=== PATIENT | female | born 1965 | race Caucasian/White ===

== ENCOUNTER 2020-04-20 17:06 | Outpatient (REF) | payer OTHER, SELFPAY | END 2020-04-20 17:07 | disposition home or self-care (01) | LOC: HO.LNP 17:06 | PROVIDERS: Visit Provider Nurse Practitioner Family | DX: Z20.822 Contact with and (suspected) exposure to COVID-19 (principal) | CPT/HCPCS: U0003 ==

== ENCOUNTER 2021-10-05 08:03 | Outpatient (REF) | payer OTHER, SELFPAY ==
[2021-10-05 11:16] LABS: MANUAL DIFF FLAG NO
[2021-10-05 11:21] LABS: Basophils Absolute Auto 0.1 X10*3/uL (0.0-0.2); Basophils Percent Auto 1.5 % (0-2); Eosinophils Absolute Auto 0.1 X10*3/uL (0.0-0.4); Eosinophils Percent Auto 1.9 % (0-4); Hematocrit 34.9 % (37.0-47.0); Lymphocytes Percent Auto 37.8 % (20-40); Mean Corpuscular HGB Conc 34.4 g/dl (31.0-35.0); Mean Corpuscular Hemoglobin 29.6 pg (27.0-33.0); Mean Corpuscular Volume 86.2 fL (80.0-98.0); Mean Platelet Volume 12.4 fL (9.4-12.3); Monocytes Absolute Auto 0.4 X10*3/uL (0.1-1.2); Monocytes Percent Auto 6.8 % (2-11); Neutrophils Absolute Auto 2.7 x10*3/uL (2.0-8.3); Red Blood Count 4.05 X10*6/uL (4.20-5.50); Red Cell Distribution Width 12.9 % (11.0-16.0); White Blood Count 5.2 X10*3/uL (4.8-10.8)
[2021-10-05 11:25] LABS: Platelet Count 50 X10*3/uL (160-400)
[2021-10-05 11:39] LABS: Alanine Aminotransferase 21 U/L (0-31); Albumin Level 4.2 g/dL (3.5-5.0); Alkaline Phosphatase 78 U/L (39-117); Anion Gap 10 (12-20); Aspartate Amino Transferase 17 U/L (5-31); Bilirubin Total 0.5 mg/dL (0.0-1.0); Blood Urea Nitrogen 10 mg/dL (9-16); Calcium 8.7 mg/dL (8.4-10.2); Carbon Dioxide 30 mmol/L (22-29); Chloride 106 mmol/L (96-108); Cholesterol 275 mg/dL; Estimated Glomerular Filt Rate > 60; Glucose Fasting 97 mg/dL (60-99); HDL Cholesterol 61 mg/dL; LDL Cholesterol Calculated 186 mg/dl; Potassium 4.1 mmol/L (3.3-5.1); Sodium 142 mmol/L (135-145); Total Protein 6.6 g/dL (6.5-8.0); Triglycerides 144 mg/dL
== END 2021-10-05 08:04 | disposition home or self-care (01) ==
LOC: HO.HMGCLDS 08:03
PROVIDERS: PCP Internal Medicine; Visit Provider Internal Medicine
DX: Z00.01 Encounter for general adult medical examination with abnormal findings (principal); E66.09 Other obesity due to excess calories; K21.00 Gastro-esophageal reflux disease with esophagitis, without bleeding; M67.912 Unspecified disorder of synovium and tendon, left shoulder
CPT/HCPCS: 36415; 80053; 80061; 84443; 85025

== ENCOUNTER 2021-10-06 09:13 | Outpatient (REF) | payer OTHER, SELFPAY ==
--- NOTE | ~2021-10-06 | MM_ITS ---
EXAMINATION: MM SCREENING DIGITAL BREAST TOMOSYNTHESIS, BILATERAL CLINICAL INFORMATION: Screening. Asymptomatic. The lifetime risk of breast cancer based on the Tyrer-Cuzick Model is 6%. COMPARISON: Outside mammography: 07/25/2013, 05/01/2019 ([place]). TECHNIQUE: Digital breast tomosynthesis is performed in both the craniocaudal and mediolateral oblique views along with computer-aided detection (CAD). Synthesized 2D images are generated from the tomosynthesis. FINDINGS: There are scattered areas of fibroglandular density (ACR BI-RADS breast composition Category b). There are no significant masses, abnormal calcifications, or other abnormalities. The axilla and skin contours are unremarkable. No significant changes from prior outside studies. MM/MM tomosynthesis screening BI IMPRESSION: No mammographic evidence of malignancy. ASSESSMENT: BI-RADS 1: Negative RECOMMENDATION: Routine annual mammography screening. This patient's information was entered into a reminder system with a target due date for their next mammogram.
== END 2021-10-06 09:14 | disposition home or self-care (01) ==
LOC: HO.MAMMO 09:13
PROVIDERS: Visit Provider Internal Medicine
DX: Z12.31 Encounter for screening mammogram for malignant neoplasm of breast (principal)
CPT/HCPCS: 77063; 77067

== ENCOUNTER 2021-11-18 12:49 | Outpatient (REF) | payer OTHER, SELFPAY ==
--- NOTE | ~2021-11-18 | XR_ITS ---
EXAMINATION: XR SHOULDER, LEFT CLINICAL INFORMATION: M25.512 - Pain in left shoulder COMPARISON: None TECHNIQUE: Left shoulder is imaged in 3 views. FINDINGS: No fracture, dislocation, or destructive process. The acromioclavicular alignment is normal. The glenohumeral joint shows no narrowing or erosive change. There is small spur inferior medial humeral head. No visible rotator cuff calcifications. XR/XR shoulder LT min 2V IMPRESSION: -Small spur inferior medial humeral head. No joint narrowing or erosive change. -No visible rotator cuff calcifications.
== END 2021-11-18 12:50 | disposition home or self-care (01) ==
LOC: HO.HOSX 12:49
PROVIDERS: Visit Provider Physician Assistant
DX: M75.42 Impingement syndrome of left shoulder (principal)
CPT/HCPCS: 73030; 99202

== ENCOUNTER 2021-12-27 09:56 | Emergency (ER) | payer OTHER, SELFPAY ==
--- NOTE | ~2021-12-27 | CT_ITS ---
EXAMINATION: CT ABDOMEN AND PELVIS WITH CONTRAST CLINICAL INFORMATION: Right lower quadrant and epigastric pain, history of cysts gastric bypass, rule out small bowel obstruction. COMPARISON: None TECHNIQUE: Multidetector volumetric images were obtained from the superior aspect of the liver through the pubic symphysis following administration 85 mL of Omnipaque 350 intravenous contrast. Sagittal and coronal reformatted images were obtained on the technologist's workstation. Oral contrast: No This CT examination was performed using dose optimization techniques as appropriate, variously including the following: *Automated exposure control *Adjustment of mA and/or kV according to patient size (this includes techniques or standardized protocols for targeted exams where dose is matched to indication/reason for exam; i.e. extremities or head) *Use of iterative reconstruction technique DLP: 561 mGy-cm FINDINGS: LUNG BASES: The visualized lung bases are unremarkable. LIVER, GALLBLADDER, AND BILIARY TREE: Hepatic steatosis. PANCREAS: Unremarkable. SPLEEN: Unremarkable. ADRENAL GLANDS: Unremarkable. KIDNEYS AND URETERS: The kidneys are normal in size, shape, and attenuation. No hydronephrosis, hydroureter, or calculi seen. No perinephric stranding. BLADDER: Unremarkable. GASTROINTESTINAL TRACT: Gastric bypass post surgical changes are seen. The gastric pouch is unremarkable. The gastrojejunal anastomosis appears intact. Mild jejunal mural thickening is seen distal to the anastomosis measuring up to 1.1 cm (image 25, series 3). Mild adjacent infiltrative changes are seen along with mildly prominent mesenteric lymph nodes. A technical services representative lymph node measures 0.9 cm in long axis (image 23, series 7). The remainder the jejunum is mildly dilated with air-fluid levels measuring up to 5.0 cm (image 11, series 7). Dilatation is seen to the level of the duodenal jejunal anastomosis in the left midabdomen as well as in a short segment distal to the anastomosis with a transition point seen in the left midabdomen laterally (image 38, series 7; image 26, series 8). The remainder the small bowel is unremarkable. The appendix, colon and rectum are unremarkable. ABDOMINAL WALL: No significant hernia is appreciated. LYMPH NODES: No lymphadenopathy. VASCULAR: Unremarkable. PELVIC VISCERA: Status post hysterectomy. Mild free fluid in the cul-de-sac. OSSEOUS STRUCTURES: Mild to moderate multilevel degenerative changes in the thoracolumbar spine. Disc spacer at L5-S1 without abnormality. No suspicious abnormality. CT/CT abdomen pelvis w IV con IMPRESSION: 1. Gastric bypass post surgical changes as detailed above. Several associated findings are seen. There is mild mural thickening of the proximal jejunum just distal to the gastrojejunal junction adjacent infiltrative changes and mildly prominent lymph nodes suggesting an acute mild jejunitis. Additionally, there is dilatation of the jejunal loops distal to this point with air-fluid levels without mural thickening. Transition points are seen at the duodenal jejunal anastomosis as well as at a short segment just distal to this point as well without definitive obstructing abnormality. Partial chronic obstruction and the segments cannot be excluded. Short-term CT follow-up is recommended following treatment to assess for resolution/change as clinically indicated. 2. Hepatic steatosis. 3. Mild free fluid in the cul-de-sac could be secondary to the jejunal processes and/or physiologic.
[2021-12-27 10:03] VITALS: BP 133/85; PULSE 110; RESP 16; TEMP 36.6; O2SAT 97; BMI 27.4
[2021-12-27 10:22] LABS: MANUAL DIFF FLAG NO
[2021-12-27 10:24] LABS: Appearance Urine Clear; Color Urine Dark Yellow; Glucose Urine UA Negative (Negative); Leukocyte Esterase Urine Trace (Negative); Nitrite Urine Negative (Negative); Specific Gravity - Urine 1.025 (1.005-1.025); UMIC TRIGGER UACC YES; Urine Blood Negative (Negative); Urine Ketones >=160 mg/dL (Negative); Urine Protein 30 (1+) mg/dL (Neg-Trace)
[2021-12-27 10:25] LABS: Basophils Absolute Auto 0.1 X10*3/uL (0.0-0.2); Basophils Percent Auto 0.5 % (0-2); Eosinophils Percent Auto 0.2 % (0-4); Hematocrit 36.9 % (37.0-47.0); Hemoglobin 12.8 g/dl (12.0-16.0); Imm Gran Abs Auto 0.03 X10*3/uL (0.00-0.03); Imm Gran Pct Auto 0.3 % (0.0-0.4); Lymphocytes Absolute Auto 1.6 X10*3/uL (1.2-4.9); Lymphocytes Percent Auto 17.6 % (20-40); Mean Corpuscular HGB Conc 34.7 g/dl (31.0-35.0); Mean Corpuscular Hemoglobin 29.8 pg (27.0-33.0); Mean Platelet Volume 10.9 fL (9.4-12.3); Monocytes Absolute Auto 0.6 X10*3/uL (0.1-1.2); Monocytes Percent Auto 6.1 % (2-11); Neutrophils Absolute Auto 6.9 x10*3/uL (2.0-8.3); Neutrophils Percent Auto 75.3 % (45-73); Platelet Count 185 X10*3/uL (160-400); Red Blood Count 4.29 X10*6/uL (4.20-5.50); Red Cell Distribution Width 13.5 % (11.0-16.0); White Blood Count 9.2 X10*3/uL (4.8-10.8)
[2021-12-27 10:27] LABS: Bacteria Urine None Seen (None Seen); RBC Urine 0-2 /HPF (0-2); UACC Culture Trigger YES
[2021-12-27 10:39] LABS: Alanine Aminotransferase 41 U/L (0-31); Albumin Level 3.8 g/dL (3.5-5.0); Alkaline Phosphatase 97 U/L (39-117); Anion Gap 16 (12-20); Aspartate Amino Transferase 31 U/L (5-31); Bilirubin Direct 0.3 mg/dL (0.0-0.5); Bilirubin Total 0.5 mg/dL (0.0-1.0); Blood Urea Nitrogen 6 mg/dL (9-16); Calcium 8.8 mg/dL (8.4-10.2); Carbon Dioxide 27 mmol/L (22-29); Chloride 101 mmol/L (96-108); Creatinine Clr Calc Pharmacy 127.7; Estimated Glomerular Filt Rate > 60; Glucose Random 110 mg/dL (60-115); Potassium 3.8 mmol/L (3.3-5.1); Sodium 140 mmol/L (135-145); Total Protein 6.1 g/dL (6.5-8.0)
[2021-12-27 12:22] VITALS: BP 144/95; PULSE 100; RESP 20; O2SAT 95
[2021-12-27] MEDS: 0.9 % Sodium Chloride 1,000 ML 999 ML IV (12:31)
[2021-12-27] MEDS: ondansetron HCL 4 MG/2 ML VIAL IVPUSH (12:31)
[2021-12-27] MEDS: Ketorolac Tromethamine 15 MG/ML VIAL 30 MG IVPUSH (12:32)
[2021-12-27] MEDS: iohexoL 350 MG/ML 75 ML INFUS..BTL 85 ML IV (12:53)
--- NOTE | 2021-12-27 14:42 | ED.ABDPAIN ---
HPI - Abdominal Pain General Chief Complaint: Abdominal Pain Stated Complaint: sever abd pain, nauseous Time Seen by Provider: 12/27/21 12:06 Source: patient Mode of arrival: ambulatory Limitations: no limitations History of Present Illness HPI narrative: 56-year-old female who presents emergency department for evaluation of abdominal pain x4 days. The patient states that on Sunday she ate food around 15:00. She states that approximately 3 hours later she had a gradual onset of abdominal pain. She points to her epigastric area when asked to localize the pain. States the pain is a sharp pain which is constant 7/10. She states she has had similar episodes in the past (approximately 15 episodes) and she has been having these episodes since having her gastric bypass past surgery in October of 2021. She states however to this episode has lasted longer and is much more severe. The patient was told by her surgeon that this was just gas pain and she has been taking antacids with no relief of her symptoms. She denied fever chills. She does have nausea but no vomiting. She states that she has had normal bowel movements and she did have a bowel movement today. She denies feeling bloated. Patient states she has lost 35 pass since the gastric bypass surgery. MD elicited complaint: abdominal pain Pertinent past history: other (Gastric bypass surgery October 2021) Onset (ago): day(s) (4) Pain Consistency: constant Location: epigastric Severity: severe Pain scale (0-10): 7 Quality: sharp Radiation: none Migration to: no migration Exacerbating factors: eating Relieving factors: nothing Associated symptoms: nausea and chills Related Data Home Medications Medication Instructions Recorded Confirmed omeprazole 40 mg capsule,delayed 40 mg PO DAILY 11/18/21 release sucralfate 100 mg/mL oral PO 11/18/21 suspension ursodiol 300 mg capsule 600 mg PO DAILY 11/18/21 Previous Rx's Medication Instructions Recorded hydromorphone 2 mg tablet 2 mg PO Q4-6H PRN pain #14 tabs 12/27/21 ondansetron 4 mg disintegrating 4 mg PO Q6-8H PRN nausea and 12/27/21 tablet vomiting #14 tabs Allergies Allergy/AdvReac Type Severity Reaction Status Date / Time oxycodone [From PERCOCET] Allergy Unknown HIVES Verified 11/18/21 14:13 Tylox Allergy Unknown nausea, Verified 11/18/21 14:13 sweating Review of Systems Review of Systems Yes all other systems are reviewed and are negative [facility] Past Medical History [facility] Narrative: Past medical history: GERD with esophagitis, obesity. Social history: Gastric sleeve surgery 2014, gastric bypass surgery October [address] [facility] by Dr. Lay, x2, L5-S1 surgery. Social history: The patient smokes 1/2 pack of cigarettes per day times 35 years. She denies alcohol use. She has a history of alcohol use disorder. Drinking 15 years prior. She denies drug use. She states she was a former cocaine user and has not had any cocaine over 15 years Surgical History Fusion of lumbosacral spine History of section History of gastric bypass History of hysterectomy History of tonsillectomy Family History Family History Father No problems noted. Mother History of heart attack Maternal Grandfather Unknown family medical history Maternal Grandmother No problems noted. Paternal Grandfather History of heart attack Paternal Grandmother Alzheimer's disease Brother No problems noted. Sister No problems noted. Sister No problems noted. Son No problems noted. Daughter No problems noted. 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, rt hand Cognitive needs: No Hearing needs: Yes Vision needs: Yes Physical Exam ED Vital Signs: Vital Signs - 24 hr 12/27/21 10:03 12/27/21 12:22 12/27/21 15:22 Temperature 98 F Pulse Rate 110 H 100 96 Respiratory Rate 16 20 16 Blood Pressure 133/85 144/95 H 143/84 H Pulse Oximetry 97 95 99 Oxygen Delivery Method Room Air Room Air Room Air BMI result Body Mass Index 27.4 Const General: cooperative and no acute distress Orientation/consciousness: oriented to person and oriented to place Limitations: no limitations [facility] Head: Yes normal to inspection, Yes normocephalic and Yes atraumatic Ears: external ears normal General nose exam: Normal external nose present Face and sinus: Yes normal facial exam Mouth: Normal oral and palatal mucosa present Throat: Yes posterior oropharynx normal Eyes General: appearance normal, both eyes and all related structures Pupils: Equal, round and reactive pupils present Neck Neck: Yes normal visual inspection, Yes no lymphadenopathy, Yes trachea midline and Yes supple Chest Chest palpation & inspection: normal inspection of the chest and normal palpation of entire chest wall Resp Effort & Inspection: normal respiratory effort and able to speak in complete sentences Auscultation: clear to auscultation bilaterally Cardio Rate: regular rate Rhythm: regular rhythm Heart sounds: S1 normal heart sound present, S2 normal heart sound present and no murmurs GI Inspection: Yes normal to inspection Palpation (GI): Soft to palpation, Tenderness to palpation present (GI) in the epigastrum (Moderate) and in the RLQ (Moderate) and no guarding Auscultation: normal bowel sounds General: Yes no CVA tenderness Back/Spine/Pelvis Back: no CVA tenderness Skin General skin exam: no rashes or lesions noted Neuro General: oriented to person and oriented to place Cranial nerves: Yes CN's II-XII intact bilaterally and Yes Equal, round and reactive pupils present Cognition (Neuro): normal cognition Motor exam (neuro): 5/5 motor strength present throughout Extrem General: Yes normal to inspection Psych Appearance: grossly normal Speech and movement: Normal speech and movement present Affect: normal affect Attitude: cooperative Thought process: Normal thought process present Thought content: Normal thought content present Course Course Course Narrative: 56-year-old female with history gastric bypass surgery October 2021 presents emergency department for evaluation of 4 days of epigastric abdominal pain associated with nausea and chills. The pain did come on gradually 3 hours after eating 4 days prior. The pain is been a constant, sharp pain which is 7/10 at its worst. Patient has had multiple similar episodes in the past but none that have lasted this long without been this severe pain patient's vital signs did reveal an elevated pulse of 110 otherwise were unremarkable. Patient did have right upper quadrant and epigastric tenderness. Laboratory evaluation was ordered. Patient was ordered to get Toradol 15 mg IV, Zofran 4 mg IV normal saline x1 L. 1448: Laboratory evaluation: Mild anemia with an H&H of 12.8 and 36.9, urinalysis revealed positive protein, trace leukocyte esterase. Microscopic revealed 0-2 RBCs, 6-10 WBCs, 3-5 squamous cells, no bacteria. Radiology evaluation: CT scan of the abdomen pelvis with IV contrast: Radiology reading as follows: IMPRESSION: ? 1. Gastric bypass post surgical changes as detailed above. Several associated findings are seen. There is mild mural thickening of the proximal jejunum just distal to the gastrojejunal junction adjacent infiltrative changes and mildly prominent lymph nodes suggesting an acute mild jejunitis. Additionally, there is dilatation of the jejunal loops distal to this point with air-fluid levels without mural thickening. Transition points are seen at the duodenal jejunal anastomosis as well as at a short segment just distal to this point as well without definitive obstructing abnormality. Partial chronic obstruction and the segments cannot be excluded. Short-term CT follow-up is recommended following treatment to assess for resolution/change as clinically indicated. 2. Hepatic steatosis. 3. Mild free fluid in the cul-de-sac could be secondary to the jejunal processes and/or physiologic. ? Dictated By: Michi Anaya MD The patient got minimal improvement with the above IV treatment. She states that her pain is still 7/10. She was ordered to get Dilaudid 1 mg IV. I will discuss the patient's presentation and the CT scan findings with the patient's bariatric surgeon, Dr. Lay. 1538: I did speak to the patient's bariatric surgeon, Dr. Lay. At this time, he does not think that the patient needs to be hospitalized and he states he will see the patient in his office on 12/29/2021. He recommended treating the patient's symptoms and discharging her to home. I did discuss this with the patient, the patient was prescribe Dilaudid 2 mg every 4 hours as needed for pain. Patient was also prescribed Zofran ODT every 6 hours as needed for nausea and vomiting. She was advised to stay on a soft diet and to return if her symptoms get worse. I also told her to consider going to [facility] since her surgeon does not come to this facility. MDM - Abdominal Pain Lab Data Result diagrams: 12/27/21 10:14 12/27/21 10:14 Labs: Lab Results 12/27/21 12/27/21 12/27/21 Range/Units 10:14 10:14 10:14 WBC 9.2 (4.8-10.8) X10*3/uL RBC 4.29 (4.20-5.50) X10*6/uL Hgb 12.8 (12.0-16.0) g/dl Hct 36.9 L (37.0-47.0) % MCV 86.0 (80.0-98.0) fL MCH 29.8 (27.0-33.0) pg MCHC 34.7 (31.0-35.0) g/dl RDW 13.5 (11.0-16.0) % Plt Count 185 D (160-400) X10*3/uL MPV 10.9 (9.4-12.3) fL Immature Gran % (Auto) 0.3 (0.0-0.4) % Neut % (Auto) 75.3 H (45-73) % Lymph % (Auto) 17.6 L (20-40) % Eddy % (Auto) 6.1 (2-11) % Eos % (Auto) 0.2 (0-4) % Baso % (Auto) 0.5 (0-2) % Lymph # (Auto) 1.6 (1.2-4.9) X10*3/uL Eddy # (Auto) 0.6 (0.1-1.2) X10*3/uL Eos # (Auto) 0.0 (0.0-0.4) X10*3/uL Baso # (Auto) 0.1 (0.0-0.2) X10*3/uL Abs Immat Gran (auto) 0.03 (0.00-0.03) X10*3/uL Absolute Neuts (auto) 6.9 (2.0-8.3) x10*3/uL Absolute Nucleated RBC 0.000 (0.0-0.012) X10*3/uL Nucleated RBC % (auto) 0.0 (0.0-0.2) /100WBC Sodium 140 (135-145) mmol/L Potassium 3.8 (3.3-5.1) mmol/L Chloride 101 (96-108) mmol/L Carbon Dioxide 27 (22-29) mmol/L Anion Gap 16 (12-20) BUN 6 L (9-16) mg/dL Creatinine 0.51 (0.5-1.4) mg/dL Estim Creat Clear Calc 127.7 Estimated GFR > 60 Random Glucose 110 (60-115) mg/dL Calcium 8.8 (8.4-10.2) mg/dL Total Bilirubin 0.5 (0.0-1.0) mg/dL Direct Bilirubin 0.3 (0.0-0.5) mg/dL AST 31 D (5-31) U/L ALT 41 H (0-31) U/L Alkaline Phosphatase 97 D (39-117) U/L Total Protein 6.1 L (6.5-8.0) g/dL Albumin 3.8 (3.5-5.0) g/dL Lipase 14 (8-78) U/L Urine Color Dark Yellow Urine Appearance Clear Urine pH 6.0 (5.0-9.0) Ur Specific [place] 1.025 (1.005-1.025) Urine Protein 30 (1+) H (Neg-Trace) mg/dL Urine Glucose (UA) Negative (Negative) mg/dL Urine Ketones >=160 (Negative) mg/dL Urine Blood Negative (Negative) Urine Nitrite Negative (Negative) Ur Leukocyte Esterase Trace H (Negative) Urine RBC 0-2 (0-2) /HPF Urine WBC 6-10 H (0-5) /HPF Ur Squamous Epith Cells 3-5 (0-2) /HPF Urine Bacteria None Seen (None Seen) Hyaline Casts 3-5 (0-2) /LPF Discharge Plan Discharge Clinical Impression: Jejunitis, History of gastric bypass Abdominal pain Qualifiers: Abdominal location: epigastric Qualified Code(s): R10.13 - Epigastric pain Patient Disposition: Home, Self-Care Instructions: Abdominal Pain (ED) Additional Instructions: Your laboratory evaluation was unremarkable. The CT scan of your abdomen pelvis with IV contrast did reveal inflammation of the jejunum (small intestine) that is attached to the stomach as part of the bypass surgery. I did discuss this finding with your bariatric surgeon, Dr. Lay who felt that you do not need to be admitted to the hospital at this time however he wants to see you in his office on 12/29/2021 to discuss further treatment options. He recommend that we treat your symptoms with pain medications and antinausea medications. Take Tylenol (acetaminophen) 2 pills every 4-6 hours as needed for pain. For pain not relieved by Tylenol take Dilaudid (hydromorphone) 2 mg pills, 1 pill every 4 hours as needed for pain. This medication will make you sleepy, do not drive or work while taking this medication. Dilaudid is a narcotic medication and can be addicting. If you are concerned about addiction you can ask the pharmacist for less pills or do not get this prescription filled. Take Zofran ODT 4 mg pills, 1 pill dissolved in your mouth every 8 hours as needed for nausea and vomiting. Follow-up with your bariatric surgeon, Dr. Lay in 2 days. Call his office tomorrow to make sure that you get scheduled for this appointment. Please return to the emergency department if your symptoms get worse or if you develop any symptoms that are concerning to you. Prescriptions: New hydromorphone 2 mg tablet 2 mg PO Q4-6H PRN (Reason: pain) Qty: 14 0RF Rx Instructions: Patient may request partial refill; Partial Fill upon patient request. ondansetron 4 mg tablet,disintegrating 4 mg PO Q6-8H PRN (Reason: nausea and vomiting) Qty: 14 0RF No Action omeprazole 40 mg capsule,delayed release(DR/EC) 40 mg PO DAILY sucralfate 100 mg/mL suspension PO ursodiol 300 mg capsule 600 mg PO DAILY
[2021-12-27 15:15] LABS: Lipase 14 U/L (8-78)
[2021-12-27] MEDS: HYDROmorphone HCl 1 MG/ML SYRINGE IVPUSH (15:21)
[2021-12-27 15:22] VITALS: BP 143/84; PULSE 96; RESP 16; O2SAT 99
== END 2021-12-27 16:36 | disposition home or self-care (01) ==
PROVIDERS: Emergency Provider Emergency Medicine Emergency Medical Services; PCP Internal Medicine
DX: K52.9 Noninfective gastroenteritis and colitis, unspecified (principal); R10.9 Unspecified abdominal pain; Z98.84 Bariatric surgery status; Z79.899 Other long term (current) drug therapy
CPT/HCPCS: 36415; 74177; 80048; 80076; 81001; 83690; 85025; 87086; 96361; 96374; 96375; 99284; J1170; J1885; J2405; Q9967

== ENCOUNTER 2022-06-24 08:40 | Emergency (ER) | payer OTHER, SELFPAY ==
--- NOTE | ~2022-06-24 | XR_ITS ---
EXAMINATION: XR FOOT, RIGHT CLINICAL INFORMATION: Second digit toe pain. COMPARISON: None available. TECHNIQUE: AP, lateral, and oblique views of the right foot. FINDINGS: There is a mild hallux valgus deformity. Mild degenerative changes are seen at the first metatarsophalangeal joint with hypertrophic changes medially in the metatarsal head and mild overlying medial soft tissue thickening. Metallic rings overlie the proximal interphalangeal joint of the second digit. The remainder the visualized second digit appears intact without overt abnormality. The remainder the digits are intact. The tarsal bones are normally aligned. There is a small plantar calcaneal spur. The soft tissues are unremarkable. XR/XR foot RT min 3V IMPRESSION: 1. Mild hallux valgus deformity and first metatarsophalangeal degenerative joint changes suggesting osteoarthritis. No acute abnormality. 2. Small plantar calcaneal spur. 3. Metallic rings overlie the proximal interphalangeal joint of the second digit without overt abnormality.
[2022-06-24 08:48] VITALS: BP 111/60; PULSE 97; RESP 17; TEMP 36.3; O2SAT 96; BMI 24.7
--- OUTSIDE RECORDS SUMMARY | 2022-06-24 09:01 | XMS_ITS | Continuity of Care Document ---
:1965 Author Organization [facility] Address [address] [place] [address]- Care Team Providers Name Role Phone Daniel WEBB, [facility]ician Encounter [facility] Date(s): 11/23/19 - 11/24/[address] [address]- [facility] Encounter Diagnosis Abscess (Final) - 11/23/19 Discharge Disposition: A-D/C Home Attending Physician: Tamir Pack DO Admitting Physician: Tamir Pack DO Referring Physician: Not on Staff, Referring MD Allergies, Adverse Reactions, Alerts Substance Reaction Severity Status Tylox Active Medications Bactrim DS 800 mg-160 mg oral tablet 1 tablet, By Mouth, Every 12 hours, for 5 days, # 10 tablet, 0 Refills, Acute 11/29/19 0:10:00 EDT, 11/24/19 0:10:00 EDT, Tablet, [id number], 1 tablet By Mouth Every 12 hours,x5 days, 81.8, kg, 11/23/19 23:47:00 EDT, Dry Weight Start Date: 11/24/19 Stop Date: 11/29/19 Status: Orderedciprofloxacin-hydrocortisone 0.2%-1% otic suspension 3 drops, Ear, Right, 2 times a day, # 10 mL, 0 Refills, Maintenance, 04/11/17 18:39:30, Otic Suspension Start Date: 04/11/17 Stop Date: 04/18/17 Status: OrderedPercocet-5/325 325 mg-5 mg oral tablet 1, tablet, By Mouth, Every 6 hours, may take one half tab, # 8 tablet, Refills 0, Tot. Refills 0, Maintenance, 04/11/17 18:40:07, Print Requisition Start Date: 04/11/17 Stop Date: 04/13/17 Status: OrderedProvigil 100 mg oral tablet 1 tablet = 100 mg, By Mouth, 2 times a day, # 60 tablet, 3 Refills, Maintenance, Tablet Start Date: 01/31/11 Status: OrderedProvigil 200 mg oral tablet 1 tablet = 200 mg, By Mouth, 2 times a day, # 60 tablet, 5 Refills, Maintenance Start Date: 03/15/11 Status: OrderedWellbutrin XL 150 mg/24 hours oral tablet, extended release 1 tablet = 150 mg, By Mouth, Every 24 hours, # 7 tablet, 0 Refills, Maintenance, ER Tablet Start Date: 06/12/11 Stop Date: 06/19/11 Status: OrderedWellbutrin XL 300 mg/24 hours oral tablet, extended release 1 tablet = 300 mg, By Mouth, Daily in AM, Begin taking the 300 mg tablet each morning, after taking the 150 mg tablet each morning for the first 7 days., # 30 tablet, 1 Refills, Maintenance Start Date: 06/20/11 Stop Date: 08/19/11 Status: Ordered Problem List Condition Effective Dates Status Health Status Informant Sleep apnea(Confirmed) Active Results Orders for Microbiology Reports Name Date Wound Superficial Culture W/ Gram Smear (Superficial W ound Culture W/ Gram 11/24/19 Smear) Microbiology Reports TEST:Superficial Wound Culture STATUS:Unauthenticated BODY SITE: SOURCE:LESION1 COLLECTED DATE/TIME:11/24/19 12:10 AMSuperficial Wound Culture SPECIMEN DESCRIPTION : LESION AXILLA LT SPECIAL REQUESTS : NONE GRAM STAIN : NO CELLS OR ORGANISMS SEEN REPORT STATUS : PRELIMINARY REPORT Vital Signs Most recent to oldest [Reference Range]: 1 2 Weight 81.8 kg 81.8 kg (11/23/19 11:47 PM) (11/23/19 7:25 PM) Oxygen Saturation [94-100 %] 100 % 99 % (11/23/19 11:47 PM) (11/23/19 7:25 PM) Pulse Rate [55-90 bpm] 76 bpm 88 bpm (11/23/19 11:47 PM) (11/23/19 7:25 PM) Blood Pressure [90-138/55-84 mm Hg] 118/74 mm Hg 126/ 71 mm Hg (11/23/19 11:47 PM) (11/23/19 7:25 PM) Respiratory Rate [16-30 br/min] 16 br/min 18 br/mi n (11/23/19 11:47 PM) (11/23/19 7:25 PM) Temperature [96.8-100.4 DegF] 98.7 DegF 98.3 DegF (11/23/19 11:47 PM) (11/23/19 7:25 PM) Mode of Delivery (Oxygen) Room air Room air (11/23/19 11:47 PM) (11/23/19 7:25 PM) Blood pressure sites Arm, right Arm, right (11/23/19 11:47 PM) (11/23/19 7:25 PM) Temperature Route Oral Oral (11/23/19 11:47 PM) (11/23/19 7:25 PM) Dry Weight 81.8 kg 81.8 kg (11/23/19 11:47 PM) (11/23/19 7:25 PM) Weight Obtained Via Standing scale (11/23/19 7:25 PM) Dry Weight Obtained Via Standing scale (11/23/19 7:25 PM)
--- OUTSIDE RECORDS SUMMARY | 2022-06-24 09:01 | XMS_ITS | Continuity of Care Document ---
:1965 Author Organization [facility] Address [address] [place] [id number]- Care Team Providers Name Role Phone Daniel WEBB, [employer] Primary Care Physician [id number] Date(s): 10/27/21 - 11/26/[address] [address] Attending Physician: AdmNathaniel ceja Admitting Physician: Admtr, Ar8 Referring Physician: Admtr, Ar8 Allergies, Adverse Reactions, Alerts Substance Reaction Severity Status Tylox Active Medications ciprofloxacin-hydrocortisone 0.2%-1% otic suspension 3 drops, Ear, Right, [...]
--- NOTE | 2022-06-24 10:15 | ED.LOWEXIN ---
HPI - Extremity Injury (Lower) General Chief Complaint: Extremity Injury, Lower Stated Complaint: toe injury, swollen Time Seen by Provider: 06/24/22 09:19 History of Present Illness HPI Narrative: Patient complains of bruising to right 2nd toe after she dropped something on it, and she has toe rings on that toe that are now stuck and wants to get them off, denies any other injury, denies laceration no loss of sensation no weakness Related Data Home Medications Medication Instructions Recorded Confirmed omeprazole 40 mg capsule,delayed 40 mg PO DAILY 11/18/21 release sucralfate 100 mg/mL oral PO 11/18/21 suspension ursodiol 300 mg capsule 600 mg PO DAILY 11/18/21 Previous Rx's Medication Instructions Recorded hydromorphone 2 mg tablet 2 mg PO Q4-6H PRN pain #14 tabs 12/27/21 ondansetron 4 mg disintegrating 4 mg PO Q6-8H PRN nausea and 12/27/21 tablet vomiting #14 tabs Allergies Allergy/AdvReac Type Severity Reaction Status Date / Time acetaminophen [From Tylox] Allergy Unknown Nausea, Verified 05/04/22 14:56 sweating oxycodone [From PERCOCET] Allergy Unknown HIVES Verified 11/18/21 14:13 PMFSH Past Medical History Surgical History Fusion of lumbosacral spine History of section History of gastric bypass History of hysterectomy History of tonsillectomy Family History Family History Father No problems noted. Mother History of heart attack Maternal Grandfather Unknown family medical history Maternal Grandmother No problems noted. Paternal Grandfather History of heart attack Paternal Grandmother Alzheimer's disease Brother No problems noted. Sister No problems noted. Sister No problems noted. Son No problems noted. Daughter No problems noted. 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, rt hand Cognitive needs: No Hearing needs: Yes Vision needs: Yes Physical Exam Vital Signs: Vital Signs: Last Vital Signs Temp 97.3 F 06/24/22 08:48 Pulse 97 06/24/22 08:48 Resp 17 06/24/22 08:48 BP 111/60 06/24/22 08:48 Pulse Ox 96 06/24/22 08:48 O2 Del Method 06/24/22 08:48 BMI result Body Mass Index 24.7 General appearance comfortable no distress Head is normocephalic atraumatic Neck is supple Back full range of motion Extremities full range of motion x4 Right 2nd toe has bruising on the distal phalanx and swelling and proximal phalanx has 3 toe rings, the proximal phalanx is not swollen but they cannot be removed over the swelling of the distal phalanx, otherwise neurovascular intact, skin intact Course Course Course Narrative: X-ray did not show any fracture in the distal phalanx, toe rings were removed with ring remover , and patient was discharged walking easily Discharge Plan Discharge Clinical Impression: Contusion of toe Patient Disposition: Home, Self-Care Additional Instructions: X-ray of the foot did not show any broken bone, so bruising and swelling should improve within a week Rings were removed It will be uncomfortable for several more days If not better in 1 week follow with orthopedist Return any concerns Prescriptions: No Action hydromorphone 2 mg tablet 2 mg PO Q4-6H PRN (Reason: pain) Qty: 14 0RF Rx Instructions: Patient may request partial refill; Partial Fill upon patient request. ondansetron 4 mg tablet,disintegrating 4 mg PO Q6-8H PRN (Reason: nausea and vomiting) Qty: 14 0RF omeprazole 40 mg capsule,delayed release(DR/EC) 40 mg PO DAILY sucralfate 100 mg/mL suspension PO ursodiol 300 mg capsule 600 mg PO DAILY Referrals: Elmer Simms MD [Physician] -
== END 2022-06-24 11:11 | disposition home or self-care (01) ==
PROVIDERS: Emergency Provider Emergency Medicine; PCP Internal Medicine
DX: S90.121A Contusion of right lesser toe(s) without damage to nail, initial encounter (principal); W20.8XXA Other cause of strike by thrown, projected or falling object, initial encounter; Y93.9 Activity, unspecified; Y92.019 Unspecified place in single-family (private) house as the place of occurrence of the external cause; Y99.9 Unspecified external cause status
CPT/HCPCS: 73630; 99282; 99283

== ENCOUNTER 2022-11-08 09:52 | Outpatient (AMB) | payer OTHER, SELFPAY ==
--- NOTE | 2022-11-08 09:55 | A.OFFPC_ITS ---
Vital Signs 11/08/22 09:56 Weight 152 lb 8 oz BP 110/60 Blood Pressure Location Rt brachial Position Sitting Pulse 96 Pulse Source Pulse Oximeter Pulse Oximetry (%) 97 Oxygen Delivery Method Room Air Intake Visit Reasons: follow up Allergies acetaminophen [From Tylox] Allergy (Unknown, Verified 11/08/22 09:56) Nausea, sweating oxycodone [From PERCOCET] Allergy (Unknown, Verified 11/08/22 09:56) HIVES Tobacco use date assessed: 11/08/22 Dental Screening Dental Screen Date: 11/08/22 Did you have a dental visit in the last 12 months?: Yes Did you have a dental problem in the last 6 months where you did not have access to dental care?: No Was dental information given to patient?: No HPI follow up HPI Details Patient is a 57-year-old female with a history of ITP recently admitted secondary to severe anemia secondary to GI bleed and [place] [address] [place] arrival to hospital. EGD showed gastric ulcer, colonoscopy was negative except black color fecal material. At discharge patient platelet were more than 80,000 Patient is being treated by Hematology Dr. Cordon And had a visit with him recently on 06 of November I have not seen this patient since September of last year She is taking no medications from PCP office Hematology note reviewed they have recommended CBC Q 1 week and they will placed order for that Also recommended to have a close follow-up with the gastroenterology, patient has had initial surgery last year due to reflux and then after that developed complication and had to go more surgeries. Her gastric surgeon is Dr. Arreola, and patient have appointment to see him Her vital signs are stable blood pressure is 110/60 oxygen saturation 97% room air Patient says that the day she was admitted to hospital she was so lightheaded that she fell and since then she has been having pain behind her left knee when she stretches it. On examination it seems as if patient have developed inflammation of her Ferguson cyst I have ordered ultrasound to confirm Referral to orthopedic placed [facility] Surgical History Fusion of lumbosacral spine History of section History of gastric bypass History of hysterectomy History of tonsillectomy Family History Father No problems noted. Mother History of heart attack Maternal Grandfather Unknown family medical history Maternal Grandmother No problems noted. Paternal Grandfather History of heart attack Paternal Grandmother Alzheimer's disease Brother No problems noted. Sister No problems noted. Sister No problems noted. Son No problems noted. Daughter No problems noted. 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 How often do you have a drink containing alcohol?: Never 3. How often do you have six or more drinks on one occasion?: Never Total Score: 0 Score Reviewed/Action Taken: Yes JOCY-7 AMB Questionnaire JOCY-7 Date JOCY - 7 assessed: 10/04/21 Source: Developed by Drs. Andrea Vargas, Mary Mccallum, Johan Lamb and colleagues, with an educational fransico from [employer]. Review of Systems Const Denies chills and Denies fever(s) ENT Denies epistaxis and Denies nasal discharge Card Denies chest pain Resp Denies chest congestion, Denies cough and Denies hemoptysis GI Denies diarrhea and Denies nausea Skin/Breast Denies rash Neuro Reports no additional complaints Psych Reports no additional complaints Endo Reports no additional complaints Physical exam (Primary Care) Tobacco/Smoking Status: Tobacco use Status Tobacco use date assessed 10/04/21 10/04/21 10:11 Patient Tobacco Use Status Former Tobacco user 12/27/21 12:22 e-Cigarette/Vaping Use Never Used 11/18/21 14:16 Thrive Assessment: Date of Thrive Assessment Date Thrive assessed 10/04/21 10/04/21 10:11 Const General: cooperative, comfortable and no acute distress Orientation/consciousness: patient oriented x3 HENMT Head: Yes normocephalic Eyes General: appearance normal, both eyes and all related structures Neck Neck: Yes supple Resp Effort & Inspection: normal respiratory effort, no cough and no stridor Cardio Rhythm: regular rhythm Heart sounds: S1 normal heart sound present and S2 normal heart sound present Skin General skin exam: turgor normal Neuro General: patient oriented x3, tone normal and moves all extremities Extrem Elbow/forearm/wrist images: 1. Site of pain with pressure and extension of knee Right lower extremity: no edema Left lower extremity: no edema Assessment and Plan Assessment & Plan (1) Hospital discharge follow-up: Code(s): Z09 - Encounter for follow-up examination after completed treatment for conditions other than malignant neoplasm (2) GI bleed: Code(s): K92.2 - Gastrointestinal hemorrhage, unspecified (3) Ferguson's cyst of knee: Code(s): M71.20 - Synovial cyst of popliteal space [Ferguson], unspecified knee (4) Chronic ITP (idiopathic thrombocytopenia): Code(s): D69.3 - Immune thrombocytopenic purpura (5) Anemia: Code(s): D64.9 - Anemia, unspecified Plan Patient is a 57-year-old female with a history of ITP recently admitted secondary to severe anemia secondary to GI bleed and thromb[place] [address] on arrival to hospital. EGD showed gastric ulcer, colonoscopy was negative except black color fecal material. At discharge patient platelet were more than 80,000 Patient is being treated by Hematology Dr. Cordon And had a visit with him recently on 06 of November I have not seen this patient since September of last year She is taking no medications from PCP office Hematology note reviewed they have recommended CBC Q 1 week and they will placed order for that Also recommended to have a close follow-up with the gastroenterology, patient has had initial surgery last year due to reflux and then after that developed complication and had to go more surgeries. Her gastric surgeon is Dr. Arreola, and patient have appointment to see him Her vital signs are stable blood pressure is 110/60 oxygen saturation 97% room air Patient says that the day she was admitted to hospital she was so lightheaded that she fell and since then she has been having pain behind her left knee when she stretches it. On examination it seems as if patient have developed inflammation of her Ferguson cyst I have ordered ultrasound to confirm Referral to orthopedic placed Orders: Orders US venous duplex LE LT Today M71.20 - Synovial cyst of popliteal space [Ferguson], unspecified knee Referrals Orthopedics Referral M71.20 - Synovial cyst of popliteal space [Ferguson], unspecified knee Coding Level of Care Code Est Pt Level 4 (19775) Diagnoses Hospital discharge follow-up Z09 GI bleed K92.2 Ferguson's cyst of knee M71.20 Chronic ITP (idiopathic thrombocytopenia) D69.3 Anemia D64.9
[2022-11-08 09:56] VITALS: BP 110/60; PULSE 96; O2SAT 97
== END 2022-11-08 12:03 | disposition home or self-care (01) ==
PROVIDERS: PCP Internal Medicine; Visit Provider Internal Medicine
DX: Z09 Encounter for follow-up examination after completed treatment for conditions other than malignant neoplasm (principal); K92.2 Gastrointestinal hemorrhage, unspecified; M71.20 Synovial cyst of popliteal space [Baker], unspecified knee; D69.3 Immune thrombocytopenic purpura; D64.9 Anemia, unspecified
CPT/HCPCS: 99214

== ENCOUNTER 2022-11-14 09:50 | Outpatient (REF) | payer OTHER, SELFPAY ==
--- NOTE | ~2022-11-14 | US_ITS ---
EXAMINATION: Ultrasound extremity nonvascular Limited CLINICAL INFORMATION: Popliteal cyst COMPARISON: None. TECHNIQUE: Grayscale and color imaging of the left popliteal fossa using a linear transducer. Comparison imaging on the right was performed. FINDINGS: No Ferguson's cyst is seen. The left popliteal vein is patent. US/US extremity nonvascular caruso IMPRESSION: No Ferguson's cyst seen.
== END 2022-11-14 09:51 | disposition home or self-care (01) ==
LOC: HO.HMGCX 09:50
PROVIDERS: PCP Internal Medicine; Visit Provider Internal Medicine
DX: M71.22 Synovial cyst of popliteal space [Baker], left knee (principal)
CPT/HCPCS: 76882

== ENCOUNTER 2022-12-04 09:19 | Outpatient (REF) | payer OTHER, SELFPAY | END 2022-12-04 09:20 | disposition home or self-care (01) | LOC: HO.HOSX 09:19 | PROVIDERS: Visit Provider Physician Assistant | DX: Z13.89 Encounter for screening for other disorder (principal) ==

== ENCOUNTER 2023-01-05 08:15 | Outpatient (AMB) | payer OTHER, SELFPAY ==
[2023-01-05 08:27] VITALS: BP 106/64; PULSE 76; O2SAT 98; BMI 26.0
--- NOTE | 2023-01-05 08:27 | MHC.PC.OV ---
Vital Signs 01/05/23 08:27 Height 5 ft 5 in Weight 156 lb 6 oz BMI 26.0 BP 106/64 Blood Pressure Location Lt brachial Position Sitting Pulse 76 Pulse Source Pulse Oximeter Pulse Oximetry (%) 98 Intake Visit Reasons: PE Deputy Probation Officer Required: No Accompanied by: Self / Same As Patient Allergies acetaminophen [From Tylox] Allergy (Unknown, Verified 01/05/23 08:28) Nausea, sweating oxycodone [From PERCOCET] Allergy (Unknown, Verified 01/05/23 08:28) HIVES Medication List - Last Reconciled 01/05/23 by Antonia Sanchez MD ergocalciferol (vitamin D2) 1,250 mcg PO QWEEK pantoprazole (Protonix) 40 mg PO DAILY sucralfate (Carafate) 10 mL PO QID Tobacco use date assessed: 01/05/23 Dental Screening Dental Screen Date: 01/05/23 Did you have a dental visit in the last 12 months?: Yes Did you have a dental problem in the last 6 months where you did not have access to dental care?: No Was dental information given to patient?: Patient has dentist HPI PE HPI Details Patient is 57-year-old female came in today for physical examination Patient is due for labs She has elevated lipids however because of ITP I am reluctant to start her on medication. Last LDL was 186 checked December of last year. Patient have developed scaly rash right foot I have sent ketoconazole cream to be used locally daily at night. She is also due for mammogram order placed Patient have a history of hysterectomy long time ago due to excessive bleeding. She no longer have Pap smears. Colonoscopy was 1 month ago at [facility] when patient had internal GI bleed. Patient says that it was within normal limit. ITP treated by Dr. Campbell Patient have a history of gastric bypass She has slightly elevated AST which is 41 and stable Carafate and Protonix is through Dr. Campbell Physical exam 1 year [facility] Surgical History History of gastric bypass Fusion of lumbosacral spine History of section History of tonsillectomy History of hysterectomy Family History Father No problems noted. Mother History of heart attack Maternal Grandfather Unknown family medical history Maternal Grandmother No problems noted. Paternal Grandfather History of heart attack Paternal Grandmother Alzheimer's disease Brother No problems noted. Sister No problems noted. Sister No problems noted. Son No problems noted. Daughter No problems noted. Social History Housing: House Alcohol intake: former Patient Tobacco Use Status: Former Tobacco user e-Cigarette/Vaping Use: Never Used service: No Current occupational status: employed Current occupation: [employer] hand Cognitive needs: No Hearing needs: Yes Vision needs: Yes Questionnaire PHQ-9 Over the last 2 weeks, how often have you been bothered by any of the following problems? 1. Little interest or pleasure in doing things: not at all 2. Feeling down, depressed, or hopeless: not at all 3. Trouble falling or staying asleep, or sleeping too much: nearly every day 4. Feeling tired or having little energy: nearly every day 5. Poor appetite or overeating: not at all 6. Feeling bad about yourself - or that you are a failure or have let yourself or your family down: not at all 7. Trouble concentrating on things, such as reading the newspaper or watching television: more than half the days 8. Moving or speaking so slowly that other people could have noticed. Or the opposite - being so fidgety or restless that you have been moving around a lot more than usual: more than half the days 9. Thoughts that you would be better off or of hurting yourself in some way: not at all Total score: 10 Depression Screening Interpretation: Positive 38208 - PHQ-9 Billing: Yes Source: Developed by Drs. Andrea Vargas, aMry Mccallum, Johan Lamb and colleagues, with an educational fransico from [employer]. Thrive Questionnaire Date Thrive assessed: 01/05/23 I am a: Patient What is your living situation today?: I have a steady place to live Within the past 12 months, did the food you bought not last and you didn't have the money to get more?: Never true Within the past 12 months, did you worry whether your food would run out before you got money to buy more?: Never true Do you have trouble paying for medicines?: No Do you have trouble getting transportation to medical appointments?: No Do you have trouble paying your heating and electricity bill?: No Do you have trouble taking care of your child, family member or friend?: No Do you have trouble with day-to-day activities such as bathing, preparing meals, shopping, managing finances, etc.?: No Are you currently unemployed and looking for a job?: No Are you interested in more education?: No Please select the resources that you would like help with: None Currently or been in a relationship where the following occur: no concerns reported JOCY-7 AMB Questionnaire JOCY-7 Date JOCY - 7 assessed: 01/05/23 Feeling nervous, anxious, or on edge: 0 = Not at all Not being able to stop or control worryin = Not at all Worrying too much about different things: 0 = Not at all Trouble relaxin = Not at all Being so restless that it is hard to sit still: 0 = Not at all Becoming easily annoyed or irritable: 0 = Not at all Feeling afraid as if something awful might happen: 0 = Not at all Total JOCY-7 score (0-4 normal; 5-9 mild; 10-14 moderate; 15-21 severe): 0 Source: Developed by Drs. Andrea Vargas, Mary Mccallum, Johan Lamb and colleagues, with an educational fransico from [employer]. JOCY-7 Assessment Billing JOCY-7 Assessment Tool: JOCY-7 Assessment 37896 Review of Systems Const Denies chills, Denies fever(s) and Denies headache(s) Eyes Denies blurry vision ENT Denies headache(s), Denies nasal discharge, Denies nasal obstruction, Denies odynophagia and Denies sinus pain Card Denies chest pain at rest and Denies chest pain with activity Resp Denies cough and Denies hemoptysis GI Denies diarrhea, Denies odynophagia, Denies vomiting and Denies hematemesis Reports as per HPI Musc Denies abnormal gait Skin/Breast Reports as per HPI Neuro Denies Neuro-related abnormal movements, Denies Abnormal speech present, Denies abnormal gait, Denies headache(s) and Denies Sensory deficit (Neuro) Psych Denies mood swings and Denies paranoia Endo Reports as per HPI Ok/Lymph Reports as per HPI Aller/Immun Reports as per HPI Physical exam (Primary Care) Vital Signs: Last Vital Signs Pulse 76 01/05/23 08:27 BP 106/64 01/05/23 08:27 Pulse Ox 98 01/05/23 08:27 BMI result Body Mass Index 26.0 Tobacco/Smoking Status: Tobacco use Status Tobacco use date assessed 01/05/23 01/05/23 08:29 Patient Tobacco Use Status Former Tobacco user 01/05/23 08:28 e-Cigarette/Vaping Use Never Used 01/05/23 08:28 PHQ-9: PHQ-9 Score PHQ-9: Total score 10 01/05/23 11:25 Depression Screening Interpretation: Positive Thrive Assessment: Date of Thrive Assessment Date Thrive assessed 01/05/23 01/05/23 08:41 Currently or been in a relationship where the following occur: no concerns reported Const General: cooperative, comfortable and no acute distress Orientation/consciousness: patient oriented x3 HENMT Head: Yes normocephalic and Yes atraumatic Eyes General: appearance normal, both eyes and all related structures Pupils: Equal, round and reactive pupils present EOM: EOMs intact bilaterally Neck Neck: Yes supple and No lymphadenopathy Thyroid: Thyroid normal Lymphatic: no lymphadenopathy noted Chest Breast/axilla palpation: normal palpation of the breasts Resp Effort & Inspection: normal respiratory effort and able to speak in complete sentences Auscultation: clear to auscultation bilaterally Cardio Heart sounds: S1 normal heart sound present and S2 normal heart sound present GI Palpation (GI): Soft to palpation and nontender Auscultation: normal bowel sounds General: Yes no CVA tenderness Back/Spine/Pelvis Back: no CVA tenderness Skin Other: Scaly rash right foot only extensive plantar aspect as well General skin exam: elasticity normal and turgor normal Neuro General: patient oriented x3 and gait normal Cranial nerves: Yes Equal, round and reactive pupils present Speech: No Abnormal speech present Sensory Exam: No Sensory deficit (Neuro) Coordination: tandem gait normal and Romberg test negative Extrem General: Yes normal exam except as noted and No edema Assessment and Plan Assessment & Plan (1) Encounter for general adult medical examination with abnormal findings: Code(s): Z00.01 - Encounter for general adult medical examination with abnormal findings (2) Chronic ITP (idiopathic thrombocytopenia): Code(s): D69.3 - Immune thrombocytopenic purpura (3) Anemia: Code(s): D64.9 - Anemia, unspecified Qualifiers: Anemia type: iron deficiency Iron deficiency anemia type: chronic blood loss Qualified Code(s): D50.0 - Iron deficiency anemia secondary to blood loss (chronic) (4) GERD with esophagitis: Code(s): K21.00 - Gastro-esophageal reflux disease with esophagitis, without bleeding Qualifiers: Esophagitis bleeding: without hemorrhage Qualified Code(s): K21.00 - Gastro-esophageal reflux disease with esophagitis, without bleeding (5) Fatigue: Code(s): R53.83 - Other fatigue Qualifiers: Fatigue type: unspecified Qualified Code(s): R53.83 - Other fatigue Plan Patient is 57-year-old female came in today for physical examination Patient is due for labs She has elevated lipids however because of ITP I am reluctant to start her on medication. Last LDL was 186 checked December of last year. Patient have developed scaly rash right foot I have sent ketoconazole cream to be used locally daily at night. She is also due for mammogram order placed Patient have a history of hysterectomy long time ago due to excessive bleeding. She no longer have Pap smears. Colonoscopy was 1 month ago at [facility] when patient had internal GI bleed. Patient says that it was within normal limit. ITP treated by Dr. Campbell Patient have a history of gastric bypass She has slightly elevated AST which is 41 and stable Carafate and Protonix is through Dr. Campbell Physical exam 1 year Orders: Orders MM tomosynthesis screening BI Today Z12.31 - Encounter for screening mammogram for malignant neoplasm of breast Complete Blood Count Auto Diff Today D64.9 - Anemia, unspecified, D69.3 - Immune thrombocytopenic purpura, K21.00 - Gastro-esophageal reflux disease with esophagitis, without bleeding, R53.83 - Other fatigue, Z00.01 - Encounter for general adult medical examination with abnormal findings Comprehensive Thayne. Panel Fast Today D64.9 - Anemia, unspecified, D69.3 - Immune thrombocytopenic purpura, K21.00 - Gastro-esophageal reflux disease with esophagitis, without bleeding, R53.83 - Other fatigue, Z00.01 - Encounter for general adult medical examination with abnormal findings Lipid Panel Today D64.9 - Anemia, unspecified, D69.3 - Immune thrombocytopenic purpura, K21.00 - Gastro-esophageal reflux disease with esophagitis, without bleeding, R53.83 - Other fatigue, Z00.01 - Encounter for general adult medical examination with abnormal findings Vitamin D 25-OH (D2 and D3) Today D64.9 - Anemia, unspecified, D69.3 - Immune thrombocytopenic purpura, K21.00 - Gastro-esophageal reflux disease with esophagitis, without bleeding, R53.83 - Other fatigue, Z00.01 - Encounter for general adult medical examination with abnormal findings Medications: New ketoconazole 2% 1 appl topical DAILY 60 grams 0RF Coding Level of Care Code Est Pt Prev Care 40-64y(39065) Diagnoses Encounter for general adult medical examination with abnormal findings Z00.01 Chronic ITP (idiopathic thrombocytopenia) D69.3 Iron deficiency anemia due to chronic blood loss D50.0 Anemia type: iron deficiency Iron deficiency anemia type: chronic blood loss Gastroesophageal reflux disease with esophagitis without hemorrhage K21.00 Esophagitis bleeding: without hemorrhage Fatigue, unspecified type R53.83 Fatigue type: unspecified Additional Codes JOCY-7 Assessment Billing - JOCY-7 Assessment Tool: JOCY-7 Assessment 87085 ([id number])
== END 2023-01-05 08:59 | disposition home or self-care (01) ==
PROVIDERS: PCP Internal Medicine; Visit Provider Internal Medicine
DX: Z00.01 Encounter for general adult medical examination with abnormal findings (principal); D69.3 Immune thrombocytopenic purpura; D50.0 Iron deficiency anemia secondary to blood loss (chronic); K21.00 Gastro-esophageal reflux disease with esophagitis, without bleeding; R53.83 Other fatigue
CPT/HCPCS: 99396

== ENCOUNTER 2023-01-15 09:42 | Outpatient (AMB) | payer OTHER, SELFPAY ==
--- NOTE | 2023-01-15 10:23 | MHC.OFFWIV ---
Intake Vital Signs 01/15/23 10:25 Weight 157 lb BP 116/70 Blood Pressure Location Lt brachial Position Sitting Pulse 80 Pulse Source Pulse Oximeter Pulse Oximetry (%) 98 Oxygen Delivery Method Room Air Intake Visit Reasons: EP Feels as if skin is burning (lobby) Intake Note: Patient here because she states her body is a ton of pain which is not new but her skin feels like its burning which has been worsening for about 5 days. She states it worsens when her clothes touch her mainly on lower back, knees, and across the shoulders. Patient Tobacco Use Status: Former Tobacco user Allergies acetaminophen [From Tylox] Allergy (Unknown, Verified 01/15/23 11:09) Nausea, sweating oxycodone [From PERCOCET] Allergy (Unknown, Verified 01/15/23 11:09) HIVES Medication List - Last Reconciled 01/15/23 by Oz Llanes MD ergocalciferol (vitamin D2) 1,250 mcg PO QWEEK ketoconazole 2% 1 appl topical DAILY pantoprazole (Protonix) 40 mg PO DAILY Do you need a note to return to daycare/school/sports/work: No HPI EP Feels as if skin is burning (lobby) HPI Details 57-year-old female presents to the office for a sick visit. Patient gives history of chronic ITP. She has had this condition for more than 25 years. Recently she completed 4 doses of Rituxan infusion in the last dose was a few weeks ago. She is scheduled for a splenectomy soon. Patient presents to the office complaining of burning sensation in her upper arms chest and lower legs. Mostly in the front of the body. No fevers or chills. Her appetite is normal. [facility] Surgical History History of gastric bypass Fusion of lumbosacral spine History of section History of tonsillectomy History of hysterectomy Family History Father No problems noted. Mother History of heart attack Maternal Grandfather Unknown family medical history Maternal Grandmother No problems noted. Paternal Grandfather History of heart attack Paternal Grandmother Alzheimer's disease Brother No problems noted. Sister No problems noted. Sister No problems noted. Son No problems noted. Daughter No problems noted. 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, [employer] Cognitive needs: No Hearing needs: Yes Vision needs: Yes Physical Exam Vital Signs: Last Vital Signs Pulse 80 01/15/23 10:25 BP 116/70 01/15/23 10:25 Pulse Ox 98 01/15/23 10:25 Oxygen Delivery Method Room Air 01/15/23 10:25 Const General: cooperative and healthy appearing Nutritional Appearance: well nourished Orientation/consciousness: patient oriented x3 Limitations: no limitations HEENT Head: Yes normal to inspection Eyes General: appearance normal, both eyes and all related structures Neck Neck: Yes normal visual inspection Chest Chest palpation & inspection: normal palpation of entire chest wall Resp Effort & Inspection: normal respiratory effort Neuro General: patient oriented x3 Assessment & Plan Assessment & Plan (1) Paresthesia: Code(s): R20.2 - Paresthesia of skin Plan: Symptoms could be due to the Rituxan infusion. She has schedule blood work today and is seeing the boiler fitter day after tomorrow. I offered her prednisone to ameliorate some of her symptoms. She preferred to wait to see him. Coding Level of Care Code Est Pt Level 4 (37419) Diagnoses Paresthesia R20.2
[2023-01-15 10:25] VITALS: BP 116/70; PULSE 80; O2SAT 98
== END 2023-01-15 11:56 | disposition home or self-care (01) ==
PROVIDERS: PCP Internal Medicine; Visit Provider Internal Medicine
DX: R20.2 Paresthesia of skin (principal)
CPT/HCPCS: 99214

== ENCOUNTER 2023-02-02 07:41 | Outpatient (REF) | payer OTHER, SELFPAY | END 2023-02-02 07:42 | disposition home or self-care (01) | LOC: HO.MAMMO 07:41 | PROVIDERS: PCP Internal Medicine; Visit Provider Internal Medicine | DX: Z12.31 Encounter for screening mammogram for malignant neoplasm of breast (principal) | CPT/HCPCS: 77063; 77067 ==

== ENCOUNTER → 2023-02-02 07:43 | Outpatient (BNV) | payer OTHER, SELFPAY | PROVIDERS: PCP Internal Medicine; Visit Provider Radiology Diagnostic Radiology | DX: Z12.31 Encounter for screening mammogram for malignant neoplasm of breast (principal) | CPT/HCPCS: 77063; 77067 ==

== ENCOUNTER 2024-03-17 08:35 | Outpatient (REF) | payer OTHER, SELFPAY ==
--- NOTE | ~2024-03-17 | MM_ITS ---
EXAMINATION: MM SCREENING DIGITAL BREAST TOMOSYNTHESIS, BILATERAL CLINICAL INFORMATION: Screening. Asymptomatic. COMPARISON: Mammography: Comparison is made with available priors TECHNIQUE: Digital breast mammography with tomosynthesis is performed in both the craniocaudal and mediolateral oblique views along with computer-aided detection (CAD). FINDINGS: There are scattered areas of fibroglandular density (ACR BI-RADS breast composition Category b). There are no significant masses, abnormal calcifications, or other abnormalities. MM/MM tomosynthesis screening BI IMPRESSION: No mammographic evidence of malignancy. ASSESSMENT: BI-RADS BI-RADS 1 - Negative RECOMMENDATION: Routine annual mammography screening. 1 year F/U This examination should not preclude the clinical evaluation of a suspicious palpable abnormality. This patient's information was entered into a reminder system with a target due date for their next mammogram. Electronically signed by: Gin Carmichael DO 03/21/2024 04:50 PM PATT
== END 2024-03-17 08:36 | disposition home or self-care (01) ==
LOC: HO.MAMMO 08:35
PROVIDERS: Visit Provider Internal Medicine
DX: Z12.31 Encounter for screening mammogram for malignant neoplasm of breast (principal)
CPT/HCPCS: 77063; 77067

== ENCOUNTER → 2024-03-17 09:00 | Outpatient (BNV) | payer OTHER, SELFPAY | PROVIDERS: Visit Provider Internal Medicine | DX: Z12.31 Encounter for screening mammogram for malignant neoplasm of breast (principal) | CPT/HCPCS: 77063; 77067 ==

== ENCOUNTER 2024-06-13 12:38 | Outpatient (AMB) | payer MEDICAID, SELFPAY ==
--- NOTE | 2024-06-13 12:43 | MHC.PC.OV ---
Vital Signs 06/13/24 12:45 Height 5 ft 5 in Weight 126 lb 6 oz BMI 21.0 BP 118/76 Blood Pressure Location Rt brachial Position Sitting Pulse 76 Pulse Source Pulse Oximeter Pulse Oximetry (%) 97 Oxygen Delivery Method Room Air Intake Visit Reasons: Weight management Allergies acetaminophen [From Tylox] Allergy (Unknown, Verified 06/13/24 12:51) Nausea, sweating oxycodone [From PERCOCET] Allergy (Unknown, Verified 06/13/24 12:51) HIVES Medication List - Last Reconciled 06/13/24 by Antonia Sanchez MD hydroxyzine HCl 25 mg PO BID lidocaine-prilocaine 2.5-2.5 % 1 appl topical ONCE pantoprazole (Protonix) 40 mg PO DAILY Tobacco use date assessed: 06/13/24 Dental Screening Dental Screen Date: 06/13/24 Did you have a dental visit in the last 12 months?: No Did you have a dental problem in the last 6 months where you did not have access to dental care?: No Was dental information given to patient?: Patient declined HPI Weight management HPI Details History - The patient is a 58-year-old female presenting with concerns regarding recent unintended weight loss and management of Immune Thrombocytopenic Purpura (ITP). - Recent episodes highlight drops in weight from 140 lbs to 121 lbs, initially due to diarrhea from a stomach bug leading to hypokalemia. - Managed ongoing ITP with monthly IVIG infusions after deciding against splenectomy due to personal circumstances. Her has not recently and patient was under lot of stressed Currently seeing Dr. Diggs for the management - Current dietary interventions are focused on a high protein intake, balanced with the need to monitor sugar content to avoid dumping syndrome. Patient had bariatric surgery, and hiatal hernia surgery at the same time, she is currently seeing electronics mechanic for weight loss - Anxiety reported, primarily nocturnal, managed with therapy and reduced THC intake from 300 mg to 60 mg over 3 months that is when her weight start going down, Currently seeing a therapist and is taking hydroxyzine for aiding sleep. Agreed to start small dose of Lexapro 5 mg for anxiety management She will return in about 3 weeks for follow-up I have also ordered labs for the patient Medications - Monthly IVIG infusions for ITP - previous hypokalemia - Hydroxyzine for anxiety/sleep disturbances, dosage unspecified through therapist - THC, reduced from 300 mg to 60 mg over the past months for anxiety and sleep has marijuana card - anxiety - at times feels as if she can not take a deep breaths unrelated to activity Problem List - Immune Thrombocytopenic Purpura (ITP) - Weight Loss - Low Potassium (Hypokalemia) - Anxiety - Malnutrition - history of bariatric surgery and hiatal hernia surgery [facility] of Care - General Warehouse Worker: Dr. Campbell - Talent Acquisition Sourcer from hematology - Therapist for mental health support Patient Instructions - Continue with monthly IVIG infusions and monitor response. - Adhere to the high-protein diet while monitoring sugar intake to avoid dumping syndrome. - Continue tapering THC usage as planned, alongside therapy and other supports. - Follow-up appointment in about a month to reassess weight, nutrition, and mental health. - start Lexapro 5 mg daily - labs to be done today Review of Systems General: No fever no chills neurological: No headaches no dizziness ear nose throat: No sore throat no hearing difficulty no ear pain cardiovascular: No syncope, no chest pain, no palpitations gastrointestinal: No nausea vomiting or diarrhea endocrine: No polyuria polydipsia no heat intolerance genitourinary: No dysuria skin: No new complaints Physical Exam general: No acute distress HEENT: No acute findings neck: Supple respiratory system: Able to talk in full sentences, no audible wheeze no stridor cardiovascular: S1-S2, heart racing sensation reported periodically but patient is very comfortable at this time gastrointestinal: No pain, history of diarrhea in March extremities: No new findings GAME BREEDING FARM MANAGER: Alert awake oriented x3 motor sensory intact skin: Normal turgor, severe malnutrition and severe muscle loss reported [facility] Surgical History (Updated 06/13/24 @ 15:39 by Antonia Sanchez MD) History of gastric bypass Fusion of lumbosacral spine History of section History of tonsillectomy History of hysterectomy Family History Father No problems noted. Mother History of heart attack Maternal Grandfather Unknown family medical history Maternal Grandmother No problems noted. Paternal Grandfather History of heart attack Paternal Grandmother Alzheimer's disease Brother No problems noted. Sister No problems noted. Sister No problems noted. Son No problems noted. Daughter No problems noted. 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 1. Little interest or pleasure in doing things: not at all 2. Feeling down, depressed, or hopeless: not at all 3. Trouble falling or staying asleep, or sleeping too much: nearly every day 4. Feeling tired or having little energy: nearly every day 5. Poor appetite or overeating: not at all 6. Feeling bad about yourself - or that you are a failure or have let yourself or your family down: not at all 7. Trouble concentrating on things, such as reading the newspaper or watching television: several days 8. Moving or speaking so slowly that other people could have noticed. Or the opposite - being so fidgety or restless that you have been moving around a lot more than usual: not at all 9. Thoughts that you would be better off or of hurting yourself in some way: not at all Total score: 7 Depression Screening Interpretation: Negative Depression Screening Done: Yes 36992 - PHQ-9 Billing: Yes Source: Developed by Drs. Andrea Vargas, Mary Mccallum, Johan Lamb and colleagues, with an educational fransico from [employer]. Thrive Questionnaire Date Thrive assessed: 06/13/24 I am a: Patient What is your living situation today?: I have a steady place to live Within the past 12 months, did the food you bought not last and you didn't have the money to get more?: Never true Within the past 12 months, did you worry whether your food would run out before you got money to buy more?: Never true Do you have trouble paying for medicines?: No Do you have trouble getting transportation to medical appointments?: No Do you have trouble paying your heating and electricity bill?: Yes Do you have trouble taking care of your child, family member or friend?: No Do you have trouble with day-to-day activities such as bathing, preparing meals, shopping, managing finances, etc.?: No Are you currently unemployed and looking for a job?: Yes Are you interested in more education?: Yes Please select the resources that you would like help with: Utilities Currently or been in a relationship where the following occur: No concerns reported THRIVE Score: 1 AUDIT C Alcohol Use Questionnaire (AUDIT-C) 1. How often do you have a drink containing alcohol?: Never 3. How often do you have six or more drinks on one occasion?: Never Total Score: 0 Score Reviewed/Action Taken: Yes JOCY-7 AMB Questionnaire JOCY-7 Date JOCY - 7 assessed: 06/13/24 Feeling nervous, anxious, or on edge: 0 = Not at all Not being able to stop or control worryin = Not at all Worrying too much about different things: 0 = Not at all Trouble relaxin = Not at all Being so restless that it is hard to sit still: 0 = Not at all Becoming easily annoyed or irritable: 0 = Not at all Feeling afraid as if something awful might happen: 0 = Not at all Total JOCY-7 score (0-4 normal; 5-9 mild; 10-14 moderate; 15-21 severe): 0 Source: Developed by Drs. Andrea Vargas, Mary Mccallum, Johan Lamb and colleagues, with an educational fransico from [employer]. JOCY-7 Assessment Billing JOCY-7 Assessment Tool: JOCY-7 Assessment 04051 Physical exam (Primary Care) Vital Signs: Last Vital Signs Pulse 76 06/13/24 12:45 BP 118/76 06/13/24 12:45 Pulse Ox 97 06/13/24 12:45 Oxygen Delivery Method Room Air 06/13/24 12:45 BMI result Body Mass Index 21.0 Tobacco/Smoking Status: Tobacco use Status Tobacco use date assessed 06/13/24 06/13/24 12:51 Patient Tobacco Use Status Former Tobacco user 06/13/24 12:44 e-Cigarette/Vaping Use Never Used 06/13/24 12:44 PHQ-9: PHQ-9 Score PHQ-9: Total score 7 06/13/24 12:51 Depression Screening Interpretation: Negative Thrive Assessment: Date of Thrive Assessment Date Thrive assessed 06/13/24 06/13/24 12:51 Currently or been in a relationship where the following occur: No concerns reported Coding Level of Care Code Est Pt Level 5 (73539) Diagnoses Unintentional weight loss R63.4 Tetrahydrocannabinol (THC) dependence F12.20 Chronic ITP (idiopathic thrombocytopenia) D69.3 Anxiety, generalized F41.1 History of gastric bypass Z98.84 Bereavement Z63.4 Difficulty sleeping G47.9 History of low potassium Z86.39 Additional Codes JOCY-7 Assessment Billing - JOCY-7 Assessment Tool: JOCY-7 Assessment 66717 ([id number]) PHQ-9 - 86422 - PHQ-9 Billing: Yes ([id number]) Assessment & Plan Assessment & Plan (1) Unintentional weight loss: Code(s): R63.4 - Abnormal weight loss Category: Medical (2) Tetrahydrocannabinol (THC) dependence: Code(s): F12.20 - Cannabis dependence, uncomplicated Category: Medical (3) Chronic ITP (idiopathic thrombocytopenia): Code(s): D69.3 - Immune thrombocytopenic purpura Category: Medical (4) Anxiety, generalized: Code(s): F41.1 - Generalized anxiety disorder Category: Medical (5) History of gastric bypass: Comment: 10/17/21- [place] Code(s): Z98.84 - Bariatric surgery status Category: Surgical (6) Bereavement: Code(s): Z63.4 - Disappearance and of family member Category: Social Hx (7) Difficulty sleeping: Code(s): G47.9 - Sleep disorder, unspecified Category: Medical (8) History of low potassium: Code(s): Z86.39 - Personal history of other endocrine, nutritional and metabolic disease Category: Medical Plan History - The patient is a 58-year-old female presenting with concerns regarding recent unintended weight loss and management of Immune Thrombocytopenic Purpura (ITP). - Recent episodes highlight drops in weight from 140 lbs to 121 lbs, initially due to diarrhea from a stomach bug leading to hypokalemia. - Managed ongoing ITP with monthly IVIG infusions after deciding against splenectomy due to personal circumstances. Her has not recently and patient was under lot of stressed Currently seeing Dr. Diggs for the management - Current dietary interventions are focused on a high protein intake, balanced with the need to monitor sugar content to avoid dumping syndrome. Patient had bariatric surgery, and hiatal hernia surgery at the same time, she is currently seeing electronics mechanic for weight loss - Anxiety reported, primarily nocturnal, managed with therapy and reduced THC intake from 300 mg to 60 mg over 3 months that is when her weight start going down, Currently seeing a therapist and is taking hydroxyzine for aiding sleep. Agreed to start small dose of Lexapro 5 mg for anxiety management She will return in about 3 weeks for follow-up I have also ordered labs for the patient Medications - Monthly IVIG infusions for ITP - previous hypokalemia - Hydroxyzine for anxiety/sleep disturbances, dosage unspecified through therapist - THC, reduced from 300 mg to 60 mg over the past months for anxiety and sleep has marijuana card - anxiety - at times feels as if she can not take a deep breaths unrelated to activity Problem List - Immune Thrombocytopenic Purpura (ITP) - Weight Loss - Low Potassium (Hypokalemia) - Anxiety - Malnutrition - history of bariatric surgery and hiatal hernia surgery [facility] of Care - General Warehouse Worker: Dr. Campbell - Talent Acquisition Sourcer from hematology - Therapist for mental health support Patient Instructions - Continue with monthly IVIG infusions and monitor response. - Adhere to the high-protein diet while monitoring sugar intake to avoid dumping syndrome. - Continue tapering THC usage as planned, alongside therapy and other supports. - Follow-up appointment in about a month to reassess weight, nutrition, and mental health. - start Lexapro 5 mg daily - labs to be done today 42 minutes spent in care of this patient Orders: Orders Vitamin B12 Today D69.3 - Immune thrombocytopenic purpura, Z86.39 - Personal history of other endocrine, nutritional and metabolic disease Vitamin D 25-OH (D2 and D3) Today D69.3 - Immune thrombocytopenic purpura, Z86.39 - Personal history of other endocrine, nutritional and metabolic disease Hemoglobin A1c Today D69.3 - Immune thrombocytopenic purpura, Z86.39 - Personal history of other endocrine, nutritional and metabolic disease Comprehensive Met. Panel Today D69.3 - Immune thrombocytopenic purpura, Z86.39 - Personal history of other endocrine, nutritional and metabolic disease Complete Blood Count Auto Diff Today D69.3 - Immune thrombocytopenic purpura, Z86.39 - Personal history of other endocrine, nutritional and metabolic disease TSH reflex Free T4 Today D69.3 - Immune thrombocytopenic purpura, Z86.39 - Personal history of other endocrine, nutritional and metabolic disease Medications: New escitalopram oxalate (Lexapro) 5 mg PO DAILY 30 tabs 0RF
[2024-06-13 12:45] VITALS: BP 118/76; PULSE 76; O2SAT 97; BMI 21.0
--- OUTSIDE RECORDS SUMMARY | 2024-06-13 14:10 | XMS_ITS | Encounter Summary ---
Author Organization [facility] [place] [address] Care Team Providers Care Women Nurse Name Role Phone Antonia Sanchez MD Primary Care Provider [phone] Reason for Visit * Reason Onset Date Comments Port Placement appt 05/16/2024 Encounter Details Date Type Department Care Team (Late st Contact Info) Description 05/16/2024 Telephone [facility] Hematology Oncology [address] [place] [address] Nancy Mata MA Port Placement appt Social History Tobacco Use Types Packs/Day Years Used Date Smoking Tobacco: Former Cigarettes Q uit: 04/09/2014 Smokeless Tobacco: Never Alcohol [...] AM EST documented as of this encounter Progress Notes * Nancy Mata MA - 05/16/2024 11:20 AM EST Pt has been booked for Port Placement on 05/30 at 8 am, Pt aware to arrive for 7:15 per Mo, Pt awareNPO after midnight, Pt will have a form setter/driver with her and will avoid any aspirin products x 5 days prior. documented in this encounter Plan of Treatment Upcoming Encounters Date Type Department Care Team (Late st Contact Info) Description 07/04/2024 8:00 AM EDT Appointment [facility] Infusion Center [address] [facility] 2nd [place] [phone] 08/05/2024 8:00 AM EDT Office Visit Bariatric Surgery - [employer] [address] [phone] Galindo aLy MD [address] [address] 09/09/2024 8:30 AM EDT Office Visit [facility] Hematology Oncology [address] [place] [phone] Bari Cordon MD [address] [place] [address] documented as of this encounter Visit Diagnoses Not on filedocumented in this encounter Care Teams Women Nurse Relationship Specialty Start Date End Date Antonia Sanchez MD [address] [place] [address] PCP - General Internal Medicine 02/08/15 documented as of this encounter
--- OUTSIDE RECORDS SUMMARY | 2024-06-13 14:10 | XMS_ITS | Encounter Summary ---
Author Organization [facility] [place] [address] Care Team Providers Care Personnel Analyst Name Role Phone Antonia Sanchez MD Primary Care Provider [phone] Reason for Visit * Reason Onset Date Comments Med Refill 05/28/2024 Pantoprazole Encounter Details Date Type Department Care Team (Late st Contact Info) Description 05/28/2024 Telephone Bariatric Surgery - [place] [address] [facility] [address] [place] [phone] Galindo Lay MD 175 [facility] [address] [place] [address] Med Refill (Pantoprazole) Social History Tobacco Use Types Packs/Day Years [...] as of this encounter Progress Notes * Ayah Mccallum - 05/28/2024 2:30 PM EST Patient is requesting a refill for Pantoprazole 40 mg documented in this encounter Plan of Treatment Upcoming Encounters Date Type Department Care Team (Late st Contact Info) Description 07/04/2024 8:00 AM EDT Appointment [facility] Infusion Center [address] [facility] [address]nd [place] [phone] 08/05/2024 8:00 AM EDT Office Visit Bariatric Surgery - [place] [address] [phone] Galindo Lay MD [address] [address] 09/09/2024 8:30 AM EDT Office Visit [facility] Hematology Oncology [address] [place] [phone] Bari Cordon MD [address] [place] [address] documented as of this encounter Visit Diagnoses Not on filedocumented in this encounter Care Teams Personnel Analyst Relationship Specialty Start Date End Date Antonia Sanchez MD [address] [place] [address] PCP - General Internal Medicine 02/08/15 documented as of this encounter
--- OUTSIDE RECORDS SUMMARY | 2024-06-13 14:10 | XMS_ITS | Encounter Summary ---
[facility] Address [address] [place] [address] Care Team Providers Care Large Animal Veterinarian Name Role Phone Antonia Sanchez MD Primary Care Provider [phone] Reason for Visit * Episode Based Medications (Routine) - Pending Review Specialty Diagnoses / Procedures Referred By Miri dcaosta Referred To Contact Diagnoses Chronic ITP (idiopathic thrombocytopenia) (CMS/HCC) Bari Cordon MD [address] [place] [address] Phone: tel: fax: [address] [address] Phone: tel: fax: Referral ID Status Reason Start Date Expiration Date V isits Requested Visits Authorized [id number] Pending Review 01/21/2024 01/20/2025 1 9 Encounter Details Date Type Department Care Team (Latest Contact Info) Description 06/04/2024 7:44 AM EST - 06/04/2024 11:59 PM EST Hospital Encounter [address] [phone] Bari Cordon MD [address] [place] [address] Chronic ITP (idiopathic thrombocytopenia) (CMS/HCC) (Primary Dx); Purpura, thrombocytopenic, idiopathic (CMS/HCC) Discharge Disposition: Home or Self Care Social History Tobacco Use Types Packs/Day Years [...] Sign Reading Time Taken Comments Blood Pressure 116/63 06/04/2024 8:07 AM EST Pulse 85 06/04/2024 8:07 AM EST Temperature 37.3 ??C (99.1 ??F) 06/04/2024 8:07 AM ES T Respiratory Rate - - Oxygen Saturation 100% 06/04/2024 8:07 AM EST Inhaled Oxygen Concentration - - Weight 55.4 kg (122 lb 3.2 oz) 06/04/2024 8:07 A M EST Height - - Body Mass Index 20.34 05/30/2024 6:57 AM EST documented in this encounter Medications at Time of Discharge hydrOXYzine HCL (ATARAX) 10 mg tablet Take 1 tablet (10 mg total) by mouth 1 (one) time each day. 04/04/2024 pantoprazole (PROTONIX) 40 mg EC tabletIndications :S/P gastric bypass Take 1 tablet (40 mg total) by mouth 2 (two) times a day. 60 each 2 05/29/2024 06/06/2024 documented as of this encounter Discharge Disposition Disposition Code Departure Means Destination Home or Self Care documented in this encounter Progress Notes * Eleno Arthur RN - 06/04/2024 8:00 AM EST Patient arrives ambulatory for IVIG. Patient recently had port placed, site is well healing with incisions well approximated and dermabond intact. Patient emotional and teary eyed today due to the recent of her . Patient offered active listening and support. Patient reports she is feeling well but she is concerned that she has lost 20 pounds since February of 2024. Patient states shehad bariatric surgery a couple years ago. She states her weight plateaued for quite some time but now it seems to be steadily decreasing despite her eating normally. Patient advised that I would route this note to both Dr. Cordon and VAMSI Tariq. I also advised patient to speak with her PCP and [facility] surgeon. Patient's port accessed without difficulty. + blood return. CBC drawn and lab sent to evaluate platelet level. Patient pre-medicated and resting comfortably in chair with call dickinson inreach. Labs resulted- platelet level 80k. Per Dr. Cordon OK for patient to remain on a monthly IVIG regimen. Orders changed to reflect this. 0946-IVIG initiated per protocol at 0.5ml/kg/hr and increased up to 5ml/kg/hr. 1230-Patient completed IVIG without incident. Patient's port flushed and deaccessed per protocol. Patient's next appointment scheduled and provided to her. Script routed to Dr. Cordon to send in EMLA cream for patient. Patient educated on how to apply cream. Patient stable upon discharge. documented in this encounter Plan of Treatment Upcoming Encounters Date Type Department Care Team (Late st Contact Info) Description 07/04/2024 8:00 AM EDT Appointment [facility] [address] [place] [phone] 08/05/2024 8:00 AM EDT Office Visit Bariatric Surgery - [place] [address] [phone] Galindo Lay MD [address] [address] 09/09/2024 8:30 AM EDT Office Visit [facility] Hematology Oncology [address] [place] [phone] Bari Cordon MD [address] [place] [address] documented as of this encounter Procedures Procedure Name Priority Date/Time Associated Diagnosis Comments COMPLETE BLOOD COUNT Routine 06/04/2024 8:49 AM EST Purpura, thrombocytopenic, idiopathic (CMS/HCC) documented in this encounter Results * (ABNORMAL) Complete blood count (06/04/2024 8:49 AM EST) WBC 3.8(L) 4.8 - 10.8 K/mcL LAB HEMETOLOGY METHOD 06/04/2024 9:30 AM [facility] RBC 3.60(L) 3.80 - 4.80 M/mcL LAB HEMETOLOGY METHOD 06/04/2024 9:30 AM [facility] Hemoglobin 10.4(L) 11.5 - 16.0 g/dL LAB HEMETOLOGY METHOD 06/04/2024 9:30 AM [facility] Hematocrit 31.8(L) 35.0 - 47.0 % LAB HEMETOLOGY METHOD 06/04/2024 9:30 AM [facility] MCV 88.6 79.0 - 98.0 FL LAB HEMETOLOGY METHOD 06/04/2024 9:30 AM [facility] MCH 29.0 27.0 - 32.0 pcg LAB HEMETOLOGY METHOD 06/04/2024 9:30 AM [facility] MCHC 32.7 32.0 - 37.0 g/dL LAB HEMETOLOGY METHOD 06/04/2024 9:30 AM [facility] RDW 12.9 11.0 - 15.0 % LAB HEMETOLOGY METHOD 06/04/2024 9:30 AM [facility] Platelets 80(L) 130 - 400 K/mcL LAB HEMETOLOGY METHOD 06/04/2024 9:30 AM [facility] Comment:previously verified by slide MPV 12.0(H) 7.0 - 11.0 FL LAB HEMETOLOGY METHOD 06/04/2024 9:30 AM EST [facility] NRBC 0.0 <1.0 % LAB HEMETOLOGY METHOD 06/04/2024 9:30 AM EST [facility] NRBC Absolute 0.00 <0.10 K/mcL LAB HEMETOLOGY METHOD 06/04/2024 9:30 AM EST [facility] Blood Blood sample taken from central line / Unknown Existing Catheter / Unknown 06/04/2024 8:49 AM EST 06/04/2024 9:07 AM EST us Bari Cordon MD LAB BLOOD ORDERABLES Final R esult [facility] [address] [place] [address], documented in this encounter Visit Diagnoses Diagnosis Chronic ITP (idiopathic thrombocytopenia) (CMS/HCC)- Primary Purpura, thrombocytopenic, idiopathic (CMS/HCC) Immune thrombocytopenic purpura documented in this encounter Administered Medications Inactive Administered Medications - up to 3 most recent administrations Medication Order MAR Action Action Date Dose Rate Site acetaminophen (TYLENOL) tablet 650 mg 650 mg, oral, Once, On Sun06/04/24 at 0845, For 1 doseIndications:Chronic ITP (idiopathic thrombocytopenia) (CMS/HCC) Given 06/04/2024 8:54 AM EST 650 mg diphenhydrAMINE (BENADRYL) capsule 25 mg 25 mg, oral, Once, On Sun06/04/24 at 0845, For 1 doseIndications:Chronic ITP (idiopathic thrombocytopenia) (CMS/HCC) Given 06/04/2024 8:54 AM EST 25 mg immune globulin (human) (GAMMAGARD) 10 % infusion 30 g 30 g, intravenous, Once, On Sun06/04/24 at 0845, For 1 dose, Administer per institutional standards., Preferred Brand: No PreferenceIndications:Chronic ITP (idiopathic thrombocytopenia) (CMS/HCC) New Bag 06/04/2024 9:46 AM EST 30 g documented in this encounter Orders Nursing Count Last Ordered Date First Orde red Date ONC NURSING COMMUNICATION 1 06/04/2024 TREATMENT CONDITIONS 1 06/04/2024 documented in this encounter Care Teams Large Animal Veterinarian Relationship Specialty Start Date End Date Antonia Sanchez MD [address] [place] [phone] PCP - General Internal Medicine 02/08/15 documented as of this encounter
--- OUTSIDE RECORDS SUMMARY | 2024-06-13 14:10 | XMS_ITS | Encounter Summary ---
Author Organization [place] [address] Care Team Providers Care Manager Sales Support Name Role Phone Antonia Sanchez MD Primary Care Provider [phone] Reason for Referral * Imaging (Routine) - Closed Specialty Diagnoses / Procedures Referred By Contac t Referred To Contact Radiology Diagnoses Chronic ITP (idiopathic thrombocytopenia) (CMS/HCC) Procedures IR Insert Tunneled CVAD w Subq Port More 5yrs Right Bari Cordon MD [address] [place] [address] Phone: tel: fax: [facility] Referral ID Status Reason Start Date Expiration Date Visits Re quested Visits Authorized [id number] Closed 05/13/2024 05/13/2025 1 1 Reason for Visit * Imaging (Routine) - Closed Specialty Diagnoses / Procedures Referred By Contac t Referred To Contact Radiology Diagnoses Chronic ITP (idiopathic thrombocytopenia) (CMS/HCC) Procedures IR Insert Tunneled CVAD w Subq Port More 5yrs Right Bari Cordon MD [address] [place] [address] Phone: tel: fax: [facility] Referral ID Status Reason Start Date Expiration Date Visits Re quested Visits Authorized [id number] Closed 05/13/2024 05/13/2025 1 1 Encounter Details Date Type Department Care Team (Latest Contact Info) Description 05/30/2024 6:38 AM EST - 05/30/2024 11:59 PM EST Hospital Encounter [facility] Interventional Radiology [address] [place] [address] Chronic ITP (idiopathic thrombocytopenia) (CMS/HCC) Discharge Disposition: Home or Self Care [...] Sign Reading Time Taken Comments Blood Pressure 103/62 05/30/2024 10:36 AM EST Pulse 76 05/30/2024 10:36 AM EST Temperature 36.8 ??C (98.2 ??F) 05/30/2024 6:57 AM ES T Respiratory Rate 16 05/30/2024 10:06 AM EST Oxygen Saturation 99% 05/30/2024 10:36 AM EST Inhaled Oxygen Concentration - - Weight 58.1 kg (128 lb) 05/30/2024 6:57 AM EST Height 165.1 cm (5' 5 ) 05/30/2024 6:57 AM EST Body Mass Index 21.3 05/30/2024 6:57 AM EST documented in this [...] or Self Care documented in this encounter Procedure Notes * Seven Tanner MD - 05/30/2024 9:51 AM EST Interventional Radiology Brief Postprocedure Note Pre-Procedure Diagnosis: The encounter diagnosis was Chronic ITP (idiopathic thrombocytopenia) (CMS/HCC). Post-Procedure Diagnosis: same Description of procedure: IR Insert Tunneled CVAD w Subq Port More 5yrs Right Performing Provider: Seven Tanner MD Staff Role Mar Pollack Finishing Powder Press Operator Alix Henderson Finishing Powder Press Operator Yanet Arredondo, coupon manifest clerk Nurse Scott, Alma Finishing Powder Press Operator Seven Tanner MD Radiologist Anesthesia: local anesthetic, moderate sedation Significant Findings: none Complications: none Estimated Blood Loss: none Medications (Filter: Administrations occurring from 910 to 950 on 05/30/24) As of 05/30/24950 fentaNYL (PF) (SUBLIMAZE) injection (mcg) Total dose: 100 mcg Date/Time Rate/Dose/Volume Action 05/30/24911 50 mcg Given 918 25 mcg Given 926 25 mcg Given midazolam (VERSED) injection (mg) Total dose: 3 mg Date/Time Rate/Dose/Volume Action 05/30/24911 1 mg Given 918 1 mg Given 929 1 mg Given sodium chloride 0.9 % infusion (mL/hr) Total volume: Not documented* *Total volume has not been documented. View each administration to see the amount administered. Date/Time Rate/Dose/Volume Action 05/30/24918 100 mL/hr New Bag lidocaine-EPINEPHrine with sodium bicarbonate 1 %-1:100,000 injection Total dose: 0 * *Administration not included in total Date/Time Rate/Dose/Volume Action 05/30/24 Canceled Entry lidocaine-EPINEPHrine (XYLOCAINE W/EPI) 2 %-1:100,000 injection (mL) Total volume: 20 mL Date/Time Rate/Dose/Volume Action 05/30/24 09 20 mL Given lidocaine with sodium bicarbonate 1 % injection (mL) Total volume: 7 mL Date/Time Rate/Dose/Volume Action 05/30/24923 7 mL Given heparin (PF) 100 unit/mL flush (Units) Total dose: 500 Units Date/Time Rate/Dose/Volume Action 05/30/24 0938 500 Units Given Final Radiology report with images in PACS to follow. The patient tolerated the procedure well without incident or complication and is in stable condition. * Seven Tanner MD - 05/30/2024 9:51 AM EST Interventional Radiology pre procedural note History and physical over 24 hours but within 30 days with no changes. I personally reviewed the History and Physical, interviewed and examined the patient prior to sedation. No changes have occurred in the patient's condition since the History and Physical was completed. Pertinent labs: Lab Results Component Value Date PLT 94 (L) 05/06/2024 WBC 3.4 (L) 05/06/2024 HGB 10.8 (L) 05/06/2024 HCT 31.3 (L) 05/06/2024 EGFR 109 05/06/2024 Vitals: 58 y.o. Wt Readings from Last 1 Encounters: 05/30/24 58.1 kg (128 lb) Visit Vitals BP 91/61 Pulse 68 Temp 36.8 ??C (98.2 ??F) Resp 16 Mallampati Classification: II (hard and soft palate, upper portion of tonsils anduvula visible) ASA Classification: ASA 3 - Patient with moderate systemic disease with functional limitations Other pertinent findings: None Diagnosis/Plan: Patient cleared to proceed with IR procedure. Seven Tanner MD * Yonathan Amaro RN - 05/30/2024 8:00 AM EST The patient had concerns about her platelet levels. She said she has ITP and receives infusions buthad not been tested since 05/06. I relayed those concerns to the provider and he did not want them redrawn. * Trino Malin RN - 05/30/2024 8:00 AM EST RIGHT UPPER CHEST SURGICAL INCISIONS CLEAND, DRY AND INTACT. NO BLEEDING OR HEMATOMA NOTED. Pt alert and oriented, NAD documented in this encounter Plan of Treatment Upcoming Encounters Date Type Department Care Team (Late st Contact Info) Description 07/04/2024 8:00 AM EDT Appointment [facility] [address] [facility] [address] [place] [phone] 08/05/2024 8:00 AM EDT Office Visit Bariatric Surgery - [place] [address] [phone] Galindo Lay MD [address] [address] 09/09/2024 8:30 AM EDT Office Visit [facility] Hematology Oncology [address] [place] [phone] Bari Cordon MD [address] [place] [address] documented as of this encounter Procedures Procedure Name Priority Date/Time Associated Diagnosis Comments IR INSERT TUNNELED CVAD W SUBQ PORT MORE 5YRS RIGHT Routine 05/30/2024 9:36 AM EST Chronic ITP (idiopathic thrombocytopenia) (CMS/HCC) documented in this encounter Results * IR Insert Tunneled CVAD w Subq Port More 5yrs Right (05/30/2024 9:36 AM EST) Anatomical Region Laterality Modality Right Interventional R adiology 05/30/2024 2:46 PM EST Impressions 05/30/2024 2:46 PM EST Port-A-Cath placement. -------- FINAL REPORT -------- Dictated By: Seven Tanner Dictated Date: 05/30/2024 14:46 ET Assigned Physician: Seven Tanner Reviewed and Electronically Signed By: Seven Tanner Signed Date: 05/30/2024 14:46 ET Workstation ID: [id number] Transcribed By: Self Edit Transcribed Date: 05/30/2024 14:46 ET Narrative 05/30/2024 2:46 PM EST INDICATION: Chronic idiopathic thrombocytopenia PROCEDURE: Power injectable Port-A-Cath placement under moderate sedation. MEDICATIONS: Local anesthesia: 20 cc of 1% buffered lidocaine administered subcutaneously during the procedure. Sedation: ??Moderate intravenous sedation was initiated and maintained for 45 minutes while the patient was independently monitored by the radiology nurse under the supervision of the interventional radiologist. A total of 3 mg of Versed and 100 mcg of fentanyl administered during the procedure. Total patient dose (air kerma): 1 mGy ? TECHNIQUE: After informed consent was obtained the patient was placed supine on the angiographic table and the right ??lower neck and upper chest were draped and prepped using maximum sterile barrier. Moderate sedation initiated and then local anesthetic administered. Intravenous access was obtained under real-time ultrasound guidance into the internal jugular vein using a micropuncture set. The microwire was then exchanged for a 0.035 Amplatz wire which was advanced under fluoroscopy into the inferior vena cava. Attention was then turned to the upper chest wall where the appropriate region was localized and anesthetized. A horizontal incision was made approximately 3 cm in length. Using blunt dissection a subcutaneous pocket was formed for placement of the port. A subcutaneous tunnel was then performed from the pocket to the initial venous access site. The catheter was advanced through the tunnel. After hemostasis was achieved the port was attached to the catheter and placed within the pocket. An 8 Romansh peel-away sheath with a hemostatic valve placed at the initial venous access site. The catheter was then cut to length and advanced through the peel-away sheath. The peel-away sheath was removed and position of the catheter was checked under fluoroscopy. The catheter was then flushed and heparinized as per protocol. The port pocket was closed with subcutaneous 3-0 Vicryl sutures. ??Dermabond applied along the initial venous access site and over the port incision site. The patient tolerated the procedure well and left the department in stable condition without immediate complications. FINDINGS: Single ultrasound image demonstrates patent right internal jugular vein. Single fluoroscopic image of the chest shows newly placed Port-A-Cath with tip near the distal superior vena cava. Procedure Note Seven Tanner MD - 05/30/2024 INDICATION: Chronic idiopathic thrombocytopenia PROCEDURE: Power injectable Port-A-Cath placement under moderatesedation. MEDICATIONS: Local anesthesia: 20 cc of 1% buffered lidocaine administeredsubcutaneously during the procedure. Sedation: Moderate intravenous sedation was initiated and maintained for45 minutes while the patient was independently monitored by the radiologynurse under the supervision of the interventional radiologist. A total of3 mg of Versed and 100 mcg of fentanyl administered during theprocedure. Total patient dose (air kerma): 1 mGy TECHNIQUE: After informed consent was obtained the patient was placedsupine on the angiographic table and the right lower neck and upper chestwere draped and prepped using maximum sterile barrier. Moderate sedationinitiated and then local anesthetic administered. Intravenous access was obtained under real-time ultrasound guidance intothe internal jugular vein using a micropuncture set. The microwire wasthen exchanged for a 0.035 Amplatz wire which was advanced underfluoroscopy into the inferior vena cava. Attention was then turned to the upper chest wall where the appropriateregion was localized and anesthetized. A horizontal incision was madeapproximately 3 cm in length. Using blunt dissection a subcutaneous pocketwas formed for placement of the port. A subcutaneous tunnel was thenperformed from the pocket to the initial venous access site. The catheterwas advanced through the tunnel. After hemostasis was achieved the portwas attached to the catheter and placed within the pocket. An 8 Frenchpeel-away sheath with a hemostatic valve placed at the initial venousaccess site. The catheter was then cut to length and advanced through thepeel-away sheath. The peel-away sheath was removed and position of thecatheter was checked under fluoroscopy. The catheter was then flushed and heparinized as per protocol. The portpocket was closed with subcutaneous 3-0 Vicryl sutures. Dermabond appliedalong the initial venous access site and over the port incision site. The patient tolerated the procedure well and left the department in stablecondition without immediate complications. FINDINGS: Single ultrasound image demonstrates patent right internaljugular vein. Single fluoroscopic image of the chest shows newly placed Port-A-Cath withtip near the distal superior vena cava. IMPRESSION: Port-A-Cath placement. -------- FINAL REPORT -------- Dictated By: Seven Tanner Dictated Date: 05/30/2024 14:46 ET Assigned Physician: Seven Tanner Reviewed and Electronically Signed By: Seven Tanner Signed Date: 05/30/2024 14:46 ET Workstation ID: [id number] Transcribed By: Self Edit Transcribed Date: 05/30/2024 14:46 ET Bari Cordon MD [facility] IR PROCEDURES Final Resu lt documented in this encounter Visit Diagnoses Diagnosis Chronic ITP (idiopathic thrombocytopenia) (CMS/HCC) documented in this encounter Administered Medications Inactive Administered Medications - up to 3 most recent administrations Medication Order MAR Action Action Date Dose Rate Site fentaNYL (PF) (SUBLIMAZE) injection intravenous, As needed, Starting on Sun05/30/24 at 0912, Intraprocedure Given 05/30/2024 9:27 AM EST 25 mcg Given 05/30/2024 9:19 AM EST 25 mcg Given 05/30/2024 9:12 AM EST 50 mcg heparin (PF) 100 unit/mL flush As needed, Starting on Sun05/30/24 at 0938, Intraprocedure Given 05/30/2024 9:38 AM EST 500 Units lidocaine with sodium bicarbonate 1 % injection As needed, Starting on Sun05/30/24 at 0924, Intraprocedure Given 05/30/2024 9:24 AM EST 7 mL lidocaine-EPINEPHrine (XYLOCAINE W/EPI) 2 %-1:100,000 injection As needed, Starting on Sun05/30/24 at 0924, Intraprocedure Given 05/30/2024 9:24 AM EST 20 mL midazolam (VERSED) injection intravenous, As needed, Starting on Sun05/30/24 at 0912, Intraprocedure Given 05/30/2024 9:30 AM EST 1 mg Given 05/30/2024 9:19 AM EST 1 mg Given 05/30/2024 9:12 AM EST 1 mg sodium chloride 0.9 % infusion intravenous, Continuous PRN, Starting on Sun05/30/24 at 0919, Intraprocedure New Bag 05/30/2024 9:19 AM EST 100 mL/hr 100 mL/hr documented in this encounter Orders Medications Ordered That Stiven ht Not Have Been Administered Count Last Ordered Date First Ordered Date lidocaine-EPINEPHrine with s odium bicarbonate 1 %-1:100,000 injection 1 05/30/2024 Discharge Count Last Ordered Date First Orde red Date DISCHARGE PATIENT 1 05/30/2024 documented in this encounter Care Teams Manager Sales Support Relationship Specialty Start Date End Date Antonia Sanchez MD [address] [place] [phone] PCP - General Internal Medicine 02/08/15 documented as of this encounter
--- OUTSIDE RECORDS SUMMARY | 2024-06-13 14:11 | XMS_ITS | Clinical Summary ---
Author Organization [facility] Address [address] [place] [address] Phone Care Team Providers Care Fund Accountant Name Role Phone Antonia Sanchez MD Primary Care Provider [phone] Allergies Active Allergy Reactions Criticality Noted Date Comments Tyloxapol 01/29/2019 Medications hydrOXYzine HCL (ATARAX) 10 mg tablet Take 1 tablet (10 mg total) by mouth 1 (one) time each day. 04/04/20 24 Active pantoprazole (PROTONIX) 40 mg EC tablet Take 1 tablet (40 mg total) by mouth 1 (one) time each day before breakfast. Do not crush, chew, or split. 30 each 2 06/06/19 25 025 Active pantoprazole (PROTONIX) 40 mg EC tablet Take 1 tablet (40 mg total) by mouth 2 (two) times a day. 03/02/20 23 025 Discontinued(Re order) pantoprazole (PROTONIX) 40 mg EC tabletIndicat ions:S/P gastric bypass Take 1 tablet (40 mg total) by mouth 2 (two) times a day. 60 each 2 05/29/19 25 025 Discontinued lidocaine-kahlil locaine (EMLA) 2.5-2.5 % cream Apply 1 Application topically 1 (one) time for 1 dose. 30 g 06/04/19 25 025 Active Problems Problem Noted Date Diagnosed Date Chronic ITP (idiopathic thrombocytopenia) 2022 Encounters Date Type Department Care Team Description 06/04/2024 7:44 AM EST - 06/04/2024 11:59 PM EST Hospital Encounter [facility] [address] [place] [phone] Bari Cordon MD Chronic ITP (idiopathic thrombocytopenia) (CMS/HCC) (Primary Dx); Purpura, thrombocytopenic, idiopathic (CMS/HCC) Discharge Disposition: Home or Self Care 06/04/2024 Telephone Bariatric Surgery [facility] [address] [phone] Galindo Lay MD Medication Problem (Pantoprazole) 05/30/2024 6:38 AM EST - 05/30/2024 11:59 PM EST Hospital Encounter [facility] Interventional Radiology [address] [place] [phone] Chronic ITP (idiopathic thrombocytopenia) (CMS/HCC) Discharge Disposition: Home or Self Care 05/28/2024 Telephone Bariatric Surgery [address] [phone] Galindo Lay MD Med Refill (Pantoprazole) 05/16/2024 Telephone [facility] Hematology Oncology [address] [place] [phone] Nancy Mata MA Port Placement appt 05/13/2024 9:00 AM EST Office Visit [facility] Hematology Oncology [address] [place] [phone] Bari Cordon MD Chronic ITP (idiopathic thrombocytopenia) (CMS/HCC) (Primary Dx) 05/06/2024 8:00 AM EST - 05/06/2024 11:59 PM EST Hospital Encounter [facility] [address] [place] [phone] Bari Cordon MD Chronic ITP (idiopathic thrombocytopenia) (CMS/HCC) (Primary Dx) Discharge Disposition: Home or Self Care 04/08/2024 7:42 AM EST - 04/08/2024 11:59 PM EST Hospital Encounter [facility] [address] [place] [phone] Chronic ITP (idiopathic thrombocytopenia) (CMS/HCC) (Primary Dx) Discharge Disposition: Home or Self Care 03/27/2024 6:22 PM EST - 03/28/2024 6:47 AM EST Emergency [facility] Emergency [address] [place] [phone] Demetrio Hughes MD Acute diarrhea (Primary Dx); Shortness of breath Discharge Disposition: Home or Self Care from Last 3 Months Surgical History Surgery Date Site/Laterality Comments TUBAL LIGATION PROCEDURE: HISTORICAL TUBAL LIGATION TONSILLECTOMY PROCEDURE: HISTORICAL TONSILLECTOMY OTHER SURGICAL HISTORY 09/2003 PROCEDURE: SC ARTHRODESIS ANTERIOR SPINAL DFRM 4-7 VRT SGM; COMMENT: Dr. Luis SECTION PROCEDURE: HISTORICAL ; COMMENT: times 2 HYSTERECTOMY 2008 PROCEDURE: HISTORICAL HYSTERECTOMY; COMMENT: Bleeding MULTIPLE TOOTH EXTRACTIONS PROCEDURE: HISTORICAL DENTAL EXTRACTION ESOPHAGOGASTRODUODENOSCOPY 07/08/2021 PROCEDURE: SC ESOPHAGOGASTRODUODENOSCOPY TRANSORAL DIAGNOSTIC; COMMENT: esophagitis - recommend pantoprazole in am and famotidine at bedtime OTHER SURGICAL HISTORY 2014 PROCEDURE:gastric sleeve;COMMENT:Dr Jodi Carmona SECTION PROCEDURE: SECTION;COMMENT:Twice HYSTERECTOMY PROCEDURE:HYSTERECTOMY LUMBAR SPINE SURGERY PROCEDURE:LUMBAR SPINE SURGERY TONSILLECTOMY PROCEDURE:TONSILLECTOMY Medical History Medical History Date Comments Abnormal glandular Papanicol aou smear of cervix 07/20/2005 DX:Abnormal glandular Papani colaou smear of cervix; COMMENT: LEEP Alcohol abuse, unspecified 11/06/2006 DX:Al cohol abuse, unspecified Cocaine abuse, unspecified 11/06/2006 DX:Co darshan abuse, unspecified; COMMENT: inpt rehab 10/13 Sleep apnea 03/16/2011 DX:Sleep apnea Club foot DX:Club foot; CO MMENT: left foot - casted Esophageal reflux DX:Esophageal reflux Globus sensation DX:Globus sensa tion S/P gastric surgery DX:S/P gastr ic surgery Depressive disorder DX:Depressiv e disorder Hyperlipidemia DX:Hyperlipidemi a Esophagitis DX:Esophagitis Status post gastric surgery DX:S tatus post gastric surgery History of gastric surgery DX:Hi story of gastric surgery Anemia DX:Anemia Gassiness DX:Gassiness Small intestinal bacterial o vergrowth (SIBO) DX:Small intestinal bacteria l overgrowth (SIBO) Idiopathic thrombocytopenic purpura (ITP) (CMS/HCC) 1940 DX:Idiopathic thrombocytopen ic purpura (ITP) (HCC);COMMENT:Has been treated intermittently with prednisone and other meds. S/P bariatric surgery 2014 DX:S/P bar iatric surgery Hearing deficit, bilateral DX:He aring deficit, bilateral Family History Medical History Relation Name Comments No Known Problems Brother Mental illness Daughter Hypertension Father diabetes, hypot hyroid No Known Problems Father Other: , motorcycle accident Father Arthritis Maternal Grandmother Arthritis Mother Heart attack Mother Hypothyroidism Mother Other: alive and well Mother DM No Known Problems Sister 1 No Known Problems Sister 2 Breast cancer Neg Hx Colon cancer Neg Hx Ovarian cancer Neg Hx Relation Name Status Comments Brother Alive Daughter Alive Father Accidental deat h Maternal Grandmother Mother Alive Sister 1 Alive Sister 2 Alive Son Alive Social History Tobacco Use Types Packs/Day Years Used Date Smoking Tobacco: Former Cigarettes Q uit: 04/09/2014 Smokeless Tobacco: Never Tobacco Cessation:Counseling Given: Not Answered Alcohol Use Standard Drinks/Week Comments No 0 (1 standard drink = 0.6 oz pur e alcohol) Comments Unknown Sex and Gender Information Value Date Recorded Sex Assigned at Female 05/06/2024 8:06 AM EST Legal Sex Female 1:17 AM EST Gender Identity Female 05/06/2024 8:06 AM EST Sexual Orientation Straight 05/06/2024 8: 06 AM EST Obstetrics History Last Filed Vital Signs Vital Sign Reading Time Taken Comments Blood Pressure 116/63 06/04/2024 8:07 AM EST Pulse 85 06/04/2024 8:07 AM EST Temperature 37.3 ??C (99.1 ??F) 06/04/2024 8:07 AM ES T Respiratory Rate 16 05/30/2024 10:06 AM EST Oxygen Saturation 100% 06/04/2024 8:07 AM EST Inhaled Oxygen Concentration - - Weight 55.4 kg (122 lb 3.2 oz) 06/09/2024 3:00 P M EST Height 165.1 cm (5' 5 ) 05/30/2024 6:57 AM EST Body Mass Index 20.34 05/30/2024 6:57 AM EST Plan of Treatment Upcoming Encounters Date Type Department Care Team (Late st Contact Info) Description 07/04/2024 8:00 AM EDT Appointment [facility] [address] [facility] 2nd [place] [phone] 08/05/2024 8:00 AM EDT Office Visit Bariatric Surgery - [place] [address] [phone] Galindo Lay MD [address] [address] 09/09/2024 8:30 AM EDT Office Visit [facility] Hematology Oncology [address] [place] [phone] Bari Cordon MD [address] [place] [address] Health Maintenance Due Date Last Done Comments Breast Cancer Screening 1965 Hepatitis A Vaccines (1 of 2 - Risk 2-dose series) 06/25/1986 Hepatitis B Vaccines (1 of 3 - 19+ 3-dose series) 06/25/1986 Cervical Cancer Screening: P ap Smear 06/25/1988 IPV Vaccines (2 of 3 - Adult catch-up series) 05/15/2013 04/17/2013 Zoster Vaccines (1 of 2) 06/25/2017 Pneumococcal Vaccine: 50+ Years (3 of 3 - PCV20 or PCV21) 06/09/2018 06/09/2013, 04/07/2013 Cholesterol Screening (Lipid Panel) 03/12/2022 Colorectal Cancer Screening: Colonoscopy 03/12/2022 Depression Screening 03/12/2022 HIV Screening 03/12/2022 Hepatitis C Screening 03/12/2022 Lung Cancer Screening (Low Dose CT) 03/12/2022 Social Influencers of Health Screening 03/12/2022 DTaP,Tdap,and Td Vaccines (3 - Td or Tdap) 04/17/2023 04/17/2013, 07/17/2011 COVID-19 Vaccine (3 - 2023-2 5 season) 2023 08/25/2020, 07/26/2020 Influenza Vaccine (#1) 2023 9, 03/16/2011 HIB Vaccines Aged Out 04/17/2013, 04/17/2013 No longer eligible based on patient's age to complete this topic Pneumococcal Vaccine: Pediatrics (0 to 5 Years) and At-Risk Patients (6 to 64 Years) Aged Out 06/09/2013, 04/07/2013 No longer eligible based on patient's age to complete this topic HPV Vaccines Aged Out No longer eligi ble based on patient's age to complete this topic MMR Vaccines Aged Out No longer eligi ble based on patient's age to complete this topic Meningococcal ACWY Vaccine Aged Out N o longer eligible based on patient's age to complete this topic Meningococcal B Vacine Aged Out No lo nger eligible based on patient's age to complete this topic RSV Immunization Patients Under 20 months Aged Out No longer eligible b ased on patient's age to complete this topic Varicella Vaccines Aged Out No longer eligible based on patient's age to complete this topic Medical Devices Implanted Type Area Carbon Capture Power Plant Operator Device Identifier Shelf Expiration Date Model / Serial / Lot Port Pwr Slim Poly 6f Evelyn Inte Attach - [id number] - [id number] Implanted:Qty: 1 on 05/30/2024 by Seven Tanner MD at [facility] Central/Courtney pheral Catheters and Ports Right: Chest Wall CR BARD PERIPHER[employer]ULAR [id number] 02/06/2025 [id number] / [id number] / [id number] Procedures Procedure Name Priority Date/Time Associated Diagnosis Comments COMPLETE BLOOD COUNT Routine 06/04/2024 8:49 AM EST Purpura, thrombocytopenic, idiopathic (CMS/HCC) IR INSERT TUNNELED CVAD W SUBQ PORT MORE 5YRS RIGHT Routine 05/30/2024 9:36 AM EST Chronic ITP (idiopathic thrombocytopenia) (CMS/HCC) ..MISCELLANEOUS REFERENCE LAB TEST 05/13/2024 ..MISCELLANEOUS REFERENCE LAB TEST 05/13/2024 COMPREHENSIVE METABOLIC PANEL Routine 05/06/2024 9:17 AM EST Chronic ITP (idiopathic thrombocytopenia) (CMS/HCC) CBC WITH AUTO DIFFERENTIAL Routine 05/06/2024 9:17 AM EST Chronic ITP (idiopathic thrombocytopenia) (CMS/HCC) CBC AND DIFFERENTIAL Routine 05/06/2024 9:17 AM EST Chronic ITP (idiopathic thrombocytopenia) (CMS/HCC) CBC WITH AUTO DIFFERENTIAL Routine 04/08/2024 8:37 AM EST Chronic ITP (idiopathic thrombocytopenia) (CMS/HCC) CBC AND DIFFERENTIAL Routine 04/08/2024 8:37 AM EST Chronic ITP (idiopathic thrombocytopenia) (CMS/HCC) CLOSTRIDIUM DIFFICILE TOXIN STAT 03/27/2024 10:30 PM EST GASTROINTESTINAL PATHOGENS BY PCR STAT 03/27/2024 10:[address] ANGIO CHEST WO AND/OR W CONTRAST STAT 03/27/2024 9:58 PM EST Shortness of breath RESPIRATORY VIRUS PANEL MOLECULAR STUDY STAT 03/27/2024 8:50 PM EST TROPONIN I HIGH SENSITIVITY STAT 03/27/2024 7:49 PM EST XR CHEST 2 VIEWS STAT 03/27/2024 7:19 PM EST TROPONIN I HIGH SENSITIVITY STAT 03/27/2024 6:32 PM EST MANUAL DIFFERENTIAL - SYSMEX WAM STAT 03/27/2024 5:18 PM EST CBC WITH AUTO DIFFERENTIAL STAT 03/27/2024 5:18 PM EST MAGNESIUM STAT 03/27/2024 5:18 PM EST LIPASE STAT 03/27/2024 5:18 PM EST COMPREHENSIVE METABOLIC PANEL STAT 03/27/2024 5:18 PM EST CBC AND DIFFERENTIAL STAT 03/27/2024 5:18 PM EST ECG 12-LEAD STAT 03/27/2024 5:11 PM EST ECG ANNOTATED 03/27/2024 from Last 3 Months Results * (ABNORMAL) Complete blood count (06/04/2024 8:49 AM EST) [facility] WBC 3.8(L) 4.8 - 10.8 K/mcL LAB HEMETOLOGY METHOD 06/04/2024 9:[address] [facility] RBC 3.60(L) 3.80 - 4.80 M/mcL LAB HEMETOLOGY METHOD 06/04/2024 9:[address] [facility] Hemoglobin 10.4(L) 11.5 - 16.0 g/dL LAB HEMETOLOGY METHOD 06/04/2024 9:[address] [facility] Hematocrit 31.8(L) 35.0 - 47.0 % LAB HEMETOLOGY METHOD 06/04/2024 9:[address] [facility] MCV 88.6 79.0 - 98.0 FL LAB HEMETOLOGY METHOD 06/04/2024 9:[address] [facility] MCH 29.0 27.0 - 32.0 pcg LAB HEMETOLOGY METHOD 06/04/2024 9:[address] [facility] MCHC 32.7 32.0 - 37.0 g/dL LAB HEMETOLOGY METHOD 06/04/2024 9:[address] [facility] RDW 12.9 11.0 - 15.0 % LAB HEMETOLOGY METHOD 06/04/2024 9:[address] [facility] Platelets 80(L) 130 - 400 K/mcL LAB HEMETOLOGY METHOD 06/04/2024 9:[address] [facility] Comment:previously verified by slide MPV 12.0(H) 7.0 - 11.0 FL LAB HEMETOLOGY METHOD 06/04/2024 9:30 AM EST [facility] NRBC 0.0 <1.0 % LAB HEMETOLOGY METHOD 06/04/2024 9:30 AM EST [facility] NRBC Absolute 0.00 <0.10 K/mcL LAB HEMETOLOGY METHOD 06/04/2024 9:30 AM EST [facility] Blood Blood sample taken from central line / Unknown Existing Catheter / Unknown 06/04/2024 8:49 AM EST 06/04/2024 9:07 AM EST Bari Cordon MD LAB BLOOD ORDERABLES Final R esult [facility] [address] [place] [address], * IR Insert Tunneled CVAD w Subq [...] Signed Date: 05/30/2024 14:46 ET Workstation ID: [id number] Transcribed By: Self Edit Transcribed Date: 05/30/2024 [...] and placed within the pocket. An 8 Niuean peel-away sheath with a hemostatic valve placed [...] Signed Date: 05/30/2024 14:46 ET Workstation ID: [id number] Transcribed By: Self Edit Transcribed Date: 05/30/2024 14:46 ET us Bari Cordon MD IMG IR PROCEDURES Final Resu lt * Miscellaneous reference lab test (05/13/2024) Only the most recent of2 resultswithin the time period is included. Provider Onbase LAB BLOOD ORDERABLES Final Re sult * (ABNORMAL) CBC auto differential (05/06/2024 9:17 AM EST) Only the most recent of3 resultswithin the time period is included. WBC 3.4(L) 4.8 - 10.8 K/mcL LAB HEMETOLOGY METHOD 05/06/2024 10:[address] [facility] RBC 3.60(L) 3.80 - 4.80 M/mcL LAB HEMETOLOGY METHOD 05/06/2024 10:[address] [facility] Hemoglobin 10.8(L) 11.5 - 16.0 g/dL LAB HEMETOLOGY METHOD 05/06/2024 10:[address] [facility] Hematocrit 31.3(L) 35.0 - 47.0 % LAB HEMETOLOGY METHOD 05/06/2024 10:[address] [facility] MCV 87.2 79.0 - 98.0 FL LAB HEMETOLOGY METHOD 05/06/2024 10:[address] [facility] MCH 30.1 27.0 - 32.0 pcg LAB HEMETOLOGY METHOD 05/06/2024 10:[address] [facility] MCHC 34.5 32.0 - 37.0 g/dL LAB HEMETOLOGY METHOD 05/06/2024 10:[address] [facility] RDW 13.2 11.0 - 15.0 % LAB HEMETOLOGY METHOD 05/06/2024 10:[address] [facility] Platelets 94(L) 130 - 400 K/mcL LAB HEMETOLOGY METHOD 05/06/2024 10:[address] [facility] Comment:reviewed by slide MPV 12.0(H) 7.0 - 11.0 FL LAB HEMETOLOGY METHOD 05/06/2024 10:[address] [facility] NRBC 0.0 <1.0 % LAB HEMETOLOGY METHOD 05/06/2024 10:[address] [facility] NRBC Absolute 0.00 <0.10 K/mcL LAB HEMETOLOGY METHOD 05/06/2024 10:[address] [facility] Neutrophils Relative 54.9 % LAB HEMETOLOGY METHOD 05/06/2024 10:[address] [facility] Lymphocytes Relative 34.4 % LAB HEMETOLOGY METHOD 05/06/2024 10:[address] [facility] Monocytes Relative 7.7 % LAB HEMETOLOGY METHOD 05/06/2024 10:[address] [facility] Eosinophils Relative 1.2 % LAB HEMETOLOGY METHOD 05/06/2024 10:[address] [facility] Basophils Relative 1.5 % LAB HEMETOLOGY METHOD 05/06/2024 10:[address] [facility] Immature Granulocytes Relative 0.3 % LAB HEMETOLOGY METHOD 05/06/2024 10:[address] [facility] Neutrophils Absolute 1.85 1.50 - 7.00 K/mcL LAB HEMETOLOGY METHOD 05/06/2024 10:[address] [facility] Lymphocytes Absolute 1.16 1.00 - 5.00 K/mcL LAB HEMETOLOGY METHOD 05/06/2024 10:[address] [facility] Monocytes Absolute 0.26 0.20 - 1.00 K/mcL LAB HEMETOLOGY METHOD 05/06/2024 10:[address] [facility] Eosinophils Absolute 0.04 0.00 - 0.50 K/mcL LAB HEMETOLOGY METHOD 05/06/2024 10:[address] [facility] Basophils Absolute 0.05 0.00 - 0.20 K/mcL LAB HEMETOLOGY METHOD 05/06/2024 10:[address] [facility] Immature Granulocytes Absolute 0.01 0.00 - 0.03 K/mcL LAB HEMETOLOGY METHOD 05/06/2024 10:[address] [facility] Blood Venous blood specimen / Unknown Venipuncture / Unknown 05/06/2024 9:17 AM EST 05/06/2024 9:31 AM EST us Bari Cordon MD LAB BLOOD ORDERABLES Final R esult [facility] [address] [place] [address], [place] [phone] * Comprehensive metabolic panel (05/06/2024 9:17 AM EST) Only the most recent of2 resultswithin the time period is included. Sodium 139 133 - 145 mmol/L LAB CHEMISTRY METHOD 05/06/2024 10:[address] [facility] Potassium 3.5 3.5 - 5.5 mmol/L LAB CHEMISTRY METHOD 05/06/2024 10:[address] [facility] Chloride 108 96 - 110 mmol/L LAB CHEMISTRY METHOD 05/06/2024 10:[address] [facility] CO2 27 21 - 32 mmol/L LAB CHEMISTRY METHOD 05/06/2024 10:[address] [facility] Anion Gap 4 3 - 11 LAB CHEMISTRY METHOD 05/06/2024 10:[address] [facility] Glucose 97 70 - 100 mg/dL LAB CHEMISTRY METHOD 05/06/2024 10:[address] [facility] BUN 10 5 - 25 mg/dL LAB CHEMISTRY METHOD 05/06/2024 10:[address] [facility] Creatinine 0.52 0.50 - 1.10 mg/dL LAB CHEMISTRY METHOD 05/06/2024 10:[address] [facility] eGFR 109 >=60 mL/min/1. 73m2 LAB CHEMISTRY METHOD 05/06/2024 10:[address] [facility] Comment:Calculation based on the??Chronic Kidney Disease Epidemiology Collaboration (CKD-EPI) equation refit??without adjustment for race. BUN/Creatinine Ratio 19.2 LAB CHEMISTRY METHOD 05/06/2024 10:[address] [facility] Calcium 8.8 8.5 - 10.5 mg/dL LAB CHEMISTRY METHOD 05/06/2024 10:[address] [facility] AST (SGOT) 18 10 - 42 unit/L LAB CHEMISTRY METHOD 05/06/2024 10:[address] [facility] ALT (SGPT) 17 10 - 60 unit/L LAB CHEMISTRY METHOD 05/06/2024 10:[address] [facility] Alkaline Phosphatase 76 42 - 121 unit/L LAB CHEMISTRY METHOD 05/06/2024 10:[address] [facility] Total Protein 6.2 6.0 - 8.0 g/dL LAB CHEMISTRY METHOD 05/06/2024 10:[address] [facility] Albumin 3.5 3.2 - 5.0 g/dL LAB CHEMISTRY METHOD 05/06/2024 10:[address] [facility] Total Bilirubin 0.4 0.0 - 1.4 mg/dL LAB CHEMISTRY METHOD 05/06/2024 10:[address] [facility] Blood Venous blood specimen / Unknown Venipuncture / Unknown 05/06/2024 9:17 AM EST 05/06/2024 9:31 AM EST us Bari Cordon MD LAB BLOOD ORDERABLES Final R esult [facility] [address] [place] [address], * Gastrointestinal pathogens molecular study (03/27/2024 10:30 PM EST) Campylobacter Detection by PCR Not Detected Not Detected LAB MICROBIOLOGY METHOD 4 1:[address] [facility] Plesiomonas shigelloides Detection by PCR Not Detected Not Detected LAB MICROBIOLOGY METHOD 4 1:[address] [facility] Salmonella Detection by PCR Not Detected Not Detected LAB MICROBIOLOGY METHOD 4 1:[address] [facility] Vibrio Detection by PCR Not Detected Not Detected LAB MICROBIOLOGY METHOD 4 1:[address] [facility] Vibrio cholerae Detection by PCR Not Detected Not Detected LAB MICROBIOLOGY METHOD 4 1:[address] [facility] Yersinia enterocolitica Detection by PCR Not Detected Not Detected LAB MICROBIOLOGY METHOD 4 1:[address] [facility] Enteroaggregative E coli EAEC Detection by PCR Not Detected Not Detected LAB MICROBIOLOGY METHOD 4 1:[address] [facility] Enteropathogenic E coli EPEC Detection Not Detected Not Detected LAB MICROBIOLOGY METHOD 4 1:[address] [facility] Enterotoxigenic E coli ETEC LTST Detection Not Detected Not Detected LAB MICROBIOLOGY METHOD 4 1:[address] [facility] Shiga-like toxin producing E coli STEC STX1 STX2 Det Not Detected Not Detected LAB MICROBIOLOGY METHOD 4 1:[address] [facility] Shigella Enteroinvasive E coli EIEC Detection Not Detected Not Detected LAB MICROBIOLOGY METHOD 4 1:[address] [facility] Cryptosporidium Detection by PCR Not Detected Not Detected LAB MICROBIOLOGY METHOD 4 1:[address] [facility] Cyclospora cayetanensis Detection by PCR Not Detected Not Detected LAB MICROBIOLOGY METHOD 4 1:[address] [facility] Entamoeba histolytica Detection by PCR Not Detected Not Detected LAB MICROBIOLOGY METHOD 4 1:[address] [facility] Giardia lamblia Detection by PCR Not Detected Not Detected LAB MICROBIOLOGY METHOD 4 1:[address] [facility] Adenovirus F 40 41 Detection by PCR Not Detected Not Detected LAB MICROBIOLOGY METHOD 4 1:[address] [facility] Astrovirus Detection by PCR Not Detected Not Detected LAB MICROBIOLOGY METHOD 4 1:[address] [facility] Norovirus GI GII Detection by PCR Not Detected Not Detected LAB MICROBIOLOGY METHOD 4 1:[address] [facility] Sapovirus Detection by PCR Not Detected Not Detected LAB MICROBIOLOGY METHOD 4 1:[address] [facility] Rotavirus A Detection by PCR Not Detected Not Detected LAB MICROBIOLOGY METHOD 4 1:[address] [facility] Stool Rectum structure / Unknown Non-blood Collection / Unknown 03/27/2024 10:30 PM EST 03/27/2024 11:39 PM EST [facility] - 03/28/2024 1:28 AM EST PCR testing is much more sensitive than traditional techniques and allows for the detection of low numbers of stool pathogens. The clinical correlation of PCR results with the need for treatment and clinical outcomes has not been established. Therefore the results of PCR testing for stool pathogens must be taken into clinical context when making treatment decisions. This is a diagnostic test only, repeat testing for cure is not advised. You may consider infectious disease consult for additional guidance. ??Testing Performed by [facility] [facility] Demetrio Jason Hughes MD LAB MICROBIOLOGY - GENERAL [place] Final Result [facility] [address] [place] [address], [place] [phone] * Clostridium difficile toxin (03/27/2024 10:30 PM EST) Clostridium difficile GDH Antigen Negative Negative 03/28/2024 12:43 AM EST [facility] C difficile Toxins A+B, EIA Negative Negative 03/28/2024 12:43 AM EST [facility] Comment:NEGATIVE FOR TOXIN P RODUCING CLOSTRIDIOIDES DIFFICILE, NO ADDITIONAL TESTING IS NECESSARY. Stool Rectum structure / Unknown Non-blood Collection / Unknown 03/27/2024 10:30 PM EST 03/27/2024 11:[address] [facility] Jason Hughes MD LAB MICROBIOLOGY - GENERAL [facility] Final Result [facility] [address] [place] [address], * CT Angio Chest wo and/or w Contrast (03/27/2024 9:58 PM EST) Anatomical Region Laterality Modality Body Computed Tomogra phy 03/27/2024 10:3 7 PM EST Impressions 03/27/2024 10:37 PM EST Impression: 1. No pulmonary emboli. 2. No thoracic aortic aneurysm or dissection 3. No pneumonia This document has been electronically signed by: Jennifer Cedeno MD on 03/27/2024 22:37:43 Narrative 03/27/2024 10:37 PM EST Exam: CTA Chest with IV contrast. Procedure: Contrast was administered. Coronal and sagittal MIP reformats were performed Comparison: None Clinical history: PE suspected, high probability. Findings: Limited due to patient motion artifact. No pulmonary emboli. No thoracic aortic aneurysm or dissection. No hilar or mediastinal adenopathy. No pericardial fluid collection. No pneumothorax. No pleural fluid collection. No pneumonia Visualized liver and spleen do not demonstrate any acute process Prior gastric bypass No thoracic spine compression fractures Procedure Note Jennifer Cedeno MD - 03/27/2024 Exam: CTA Chest with IV contrast. Procedure: Contrast was administered. Coronal and sagittal MIP reformats were performed Comparison: None Clinical history: PE suspected, high probability. Findings: Limited due to patient motion artifact. No pulmonary emboli. No thoracic aortic aneurysm or dissection. No hilar or mediastinal adenopathy. No pericardial fluid collection. No pneumothorax. No pleural fluid collection. No pneumonia Visualized liver and spleen do not demonstrate any acute process Prior gastric bypass No thoracic spine compression fractures IMPRESSION: Impression: 1. No pulmonary emboli. 2. No thoracic aortic aneurysm or dissection 3. No pneumonia This document has been electronically signed by: Jennifer Cedeno MD on 03/27/2024 22:37:43 [facility] Saul WEBB IM CT PROCEDURES Final Result * Respiratory virus panel molecular study (03/27/2024 8:50 PM EST) Adenovirus Detection by PCR Not Detected Not Detected LAB MICROBIOLOGY METHOD 03/27/2024 10:[address] [facility] Influenza A PCR Not Detected Not Detected LAB MICROBIOLOGY METHOD 03/27/2024 10:[address] [facility] Influenza B PCR Not Detected Not Detected LAB MICROBIOLOGY METHOD 03/27/2024 10:[address] [facility] Coronavirus 229E Not Detected Not Detected LAB MICROBIOLOGY METHOD 03/27/2024 10:[address] [facility] Coronavirus HKU1 Not Detected Not Detected LAB MICROBIOLOGY METHOD 03/27/2024 10:[address] [facility] Coronavirus OC43 Not Detected Not Detected LAB MICROBIOLOGY METHOD 03/27/2024 10:[address] [facility] Coronavirus NL63 Not Detected Not Detected LAB MICROBIOLOGY METHOD 03/27/2024 10:[address] [facility] Parainfluenza Virus 1 Not Detected Not Detected LAB MICROBIOLOGY METHOD 03/27/2024 10:[address] [facility] Parainfluenza Virus 2 Not Detected Not Detected LAB MICROBIOLOGY METHOD 03/27/2024 10:[address] [facility] Parainfluenza Virus 3 Not Detected Not Detected LAB MICROBIOLOGY METHOD 03/27/2024 10:[address] [facility] Parainfluenza Virus 4 Not Detected Not Detected LAB MICROBIOLOGY METHOD 03/27/2024 10:[address] [facility] RSV PCR Not Detected Not Detected LAB MICROBIOLOGY METHOD 03/27/2024 10:[address] [facility] Human Metapneumovirus A and B Not Detected Not Detected LAB MICROBIOLOGY METHOD 03/27/2024 10:[address] [facility] Rhinovirus/Entero virus Not Detected Not Detected LAB MICROBIOLOGY METHOD 03/27/2024 10:[address] [facility] Bordetella pertussis Not Detected Not Detected LAB MICROBIOLOGY METHOD 03/27/2024 10:[address] [facility] Bordetella parapertussis Not Detected Not Detected LAB MICROBIOLOGY METHOD 03/27/2024 10:[address] [facility] Mycoplasma pneumo by PCR Not Detected Not Detected LAB MICROBIOLOGY METHOD 03/27/2024 10:[address] [facility] Chlamydia pneumoniae Not Detected Not Detected LAB MICROBIOLOGY METHOD 03/27/2024 10:[address] [facility] SARS COV-2 Not Detected Not Detected LAB MICROBIOLOGY METHOD 03/27/2024 10:[address] [facility] Swab Both anterior nares / Unknown Non-blood Collection / Unknown 03/27/2024 8:50 PM EST 03/27/2024 9:25 PM EST [facility] - 03/27/2024 10:28 PM EST Testing was performed using the [employer] Respiratory Pathogen PCR Assay. All results must be correlated with the clinical findings. Results should not be used as the sole basis for diagnosis. False Negative results may occur from the presence of sequence variants in the region targeted by the assay or the presence of inhibitors. Results may be affected by concurrent antiviral/antimicrobial therapy or levels of organisms that are below the limit of detection. Demetrio Hughes MD LAB MICROBIOLOGY - GENERAL ALAN BALL Final Result Performing Organization Address [facility]/ZIP Co de Phone Number [facility] [address] [place] [address], [place] [phone] * Troponin I high sensitivity (03/27/2024 7:49 PM EST) Only the most recent of2 resultswithin the time period is included. Pathologist [facility] High Sensitivity Troponin I 20 <=54 ng/L LAB CHEMISTRY METHOD 03/27/2024 8:39 PM EST [facility] Blood Venous blood specimen / Unknown Venipuncture / Unknown 03/27/2024 7:49 PM EST 03/27/2024 8:09 PM EST Narrative [facility] - 03/27/2024 8:39 PM EST High levels of biotin in samples may falsely decrease hsTroponin values. ??Use caution when interpreting hsTroponin results in patients taking biotin who exhibit renal impairment (eGFR <60) or in patients taking more than 20 mg/day of biotin. Demetrio Hughes MD LAB BLOOD ORDERABLES Final Resu lt Performing Organization Address [facility] Co de Phone Number [facility] [address] [place] [address], [place] [phone] * XR Chest 2 Views (03/27/2024 7:19 PM EST) Anatomical Region Laterality Modality Body Radiographic Jeana ging 03/28/2024 7:37 AM EST Impressions 03/28/2024 7:39 AM EST No acute cardiopulmonary process. -------- FINAL REPORT -------- Dictated By: Harjit Alvarez Dictated Date: 03/28/2024 07:37 ET Assigned Physician: Harjit Alvarez Reviewed and Electronically Signed By: Harjit Alvarez Signed Date: 03/28/2024 07:39 ET Workstation ID: [id number] Transcribed By: Self Edit Transcribed Date: 03/28/2024 07:37 ET Narrative 03/28/2024 7:39 AM EST EXAMINATION: Chest 2 views. CLINICAL INDICATION: SOB, tachycardia, diarrhea and nausea. Past history of ITP. COMPARISON: Chest 11/14/2022 FINDINGS: The lungs are well-expanded and clear of acute process. The heart size and pulmonary vascularity is normal. No gross bony abnormality seen. Surgical clips in the left epigastric region from previous intervention. They are stable. Procedure Note Harjit Alvarez MD - 03/28/2024 EXAMINATION: Chest 2 views. CLINICAL INDICATION: SOB, tachycardia, diarrhea and nausea. Past historyof ITP. COMPARISON: Chest 11/14/2022 FINDINGS: The lungs are well-expanded and clear of acute process. Theheart size and pulmonary vascularity is normal. No gross bony abnormalityseen. Surgical clips in the left epigastric region from previousintervention. They are stable. IMPRESSION: No acute cardiopulmonary process. -------- FINAL REPORT -------- Dictated By: Harjit Alvarez Dictated Date: 03/28/2024 07:37 ET Assigned Physician: Harjit Alvarez Reviewed and Electronically Signed By: Harjit Alvarez Signed Date: 03/28/2024 07:39 ET Workstation ID: [id number] Transcribed By: Self Edit Transcribed Date: 03/28/2024 07:37 ET us Benjamin Orozco DO IMG XR PROCEDURES Final Result * (ABNORMAL) Manual differential (03/27/2024 5:18 PM EST) Neutrophils % 44.0 % LAB HEMETOLOGY METHOD 03/27/2024 6:05 PM EST [facility] Bands % 10.0 % LAB HEMETOLOGY METHOD 03/27/2024 6:[address] [facility] Lymphocytes % 31.0 % LAB HEMETOLOGY METHOD 03/27/2024 6:[address] [facility] Reactive Lymphocyte 4.00 % LAB HEMETOLOGY METHOD 03/27/2024 6:[address] [facility] Monocytes % 10.0 % LAB HEMETOLOGY METHOD 03/27/2024 6:[address] [facility] Eosinophils % 0.0 % LAB HEMETOLOGY METHOD 03/27/2024 6:[address] [facility] Basophils % 2.0 % LAB HEMETOLOGY METHOD 03/27/2024 6:[address] [facility] Neutrophils Absolute Manual 2.77 1.50 - 7.00 K/mcL LAB HEMETOLOGY METHOD 03/27/2024 6:[address] [facility] Bands Absolute Manual 0.63(H) 0.00 - 0.00 K/mcL LAB HEMETOLOGY METHOD 03/27/2024 6:[address] [facility] Lymphocytes Absolute 1.95 1.00 - 5.00 K/mcL LAB HEMETOLOGY METHOD 03/27/2024 6:[address] [facility] Reactive Lymph Abs Manual 0.25(H) 0.00 - 0.00 lym LAB HEMETOLOGY METHOD 03/27/2024 6:[address] [facility] Monocytes Absolute Manual 0.63 0.20 - 1.00 K/mcL LAB HEMETOLOGY METHOD 03/27/2024 6:[address] [facility] Eosinophils Absolute Manual 0.00 0.00 - 0.50 K/mcL LAB HEMETOLOGY METHOD 03/27/2024 6:[address] [facility] Basophils Absolute Manual 0.13 0.00 - 0.20 K/mcL LAB HEMETOLOGY METHOD 03/27/2024 6:[address] [facility] Rbc Morphology Present( A) Consistent with indices, Normal for [place] LAB HEMETOLOGY METHOD 03/27/2024 6:[address] [facility] Comment:RBC: Morphology agre es with CBC Platelet Morphology - WAM See Note(A) Normal LAB HEMETOLOGY METHOD 03/27/2024 6:05 PM EST [facility] Comment:PLT: Large platelets seen Ovalocytes Present 5 - 10%(A) (none) LAB HEMETOLOGY METHOD 03/27/2024 6:05 PM EST [facility] Schistocytes Present < 5%(A) (none) LAB HEMETOLOGY METHOD 03/27/2024 6:[address] [facility] Vacuolated Neutrophils Present Present( A) (none) LAB HEMETOLOGY METHOD 03/27/2024 6:[address] [facility] Blood Venous blood specimen / Unknown Venipuncture / Unknown 03/27/2024 5:18 PM EST 03/27/2024 5:28 PM EST Benjamin Orozco DO LAB BLOOD ORDERABLES Final Resu lt Performing Organization Address City/[facility]/ZIP Co de Phone Number [facility] [address] [place] [address], [place] [phone] * (ABNORMAL) Magnesium (03/27/2024 5:18 PM EST) Magnesium 1.5(L) 1.9 - 2.6 mg/dL LAB CHEMISTRY METHOD 03/27/2024 5:[address] [facility] Blood Venous blood specimen / Unknown Venipuncture / Unknown 03/27/2024 5:18 PM EST 03/27/2024 5:28 PM EST Benjamin Donna Pam BOYCE LAB BLOOD ORDERABLES Final Resu lt [facility] [address] [place] [address], [place] [phone] * Lipase (03/27/2024 5:18 PM EST) Lipase 46 13 - 75 unit/L LAB CHEMISTRY METHOD 03/27/2024 5:53 PM EST [facility] Blood Venous blood specimen / Unknown Venipuncture / Unknown 03/27/2024 5:18 PM EST 03/27/2024 5:28 PM EST Dominguezeric Orozco LAB BLOOD ORDERABLES Final Resu lt [facility] [address] [place] [address], * ECG 12 lead (03/27/2024 5:11 PM EST) Ventricular Rate ECG 86 BPM GEMUSE Atrial Rate 86 BPM GEMUSE P-R Interval 118 ms GEMUSE QRS Duration 98 ms GEMUSE Q-T Interval 360 ms GEMUSE QTc 430 ms GEMUSE P Wave Kiana 71 degrees GEMUSE R Kiana 39 degrees GEMUSE T Kiana 103 degrees GEMUSE ECG Interpretation Normal sinus rhythm Possible Left atrial enlargement ST and T wave abnormality, consider anterolateral ischemia Abnormal ECG When compared with ECG of 29-SEP-2023 06:32, T wave inversion now evident in Anterior leads Confirmed by Linda THOMPSON YUFENG ([id number]) on 03/28/2024 6:55:24 PM G[facility] 03/27/2024 5:11 PM EST 03/28/2024 6:55 PM EST Dominguezeric Thompson Pam BOYCE ECG ORDERABLES Final Result Performing Organization Address City/[facility]/ZIP Co de Phone Number GEMUSE * ECG-Annotated (03/27/2024) Provider Onbase ECG ORDERABLES Final Result from Last 3 Months Insurance [facility] MEDICAID - [place] Care Teams Fund Accountant Relationship Specialty Start Date End Date Antonia Sanchez MD [address] [place] [address] PCP - General Internal Medicine 02/08/15
--- OUTSIDE RECORDS SUMMARY | 2024-06-13 14:11 | XMS_ITS | Encounter Summary ---
[facility] [place] [address] Care Team Providers Care Cream Maker Name Role Phone Antoina Sanchez MD Primary Care Provider [phone] Reason for Visit * Reason Onset Date Comments Medication Problem 06/04/2024 Pantoprazole Encounter Details Date Type Department Care Team ([facility] st Contact Info) Description 06/04/2024 Telephone Bariatric Surgery - [place] [address] [place] [phone] Galindo Lay MD 175 [facility] [address] [place] [address] Medication Problem (Pantoprazole) Social History Tobacco Use Types Packs/Day [...] encounter Progress Notes * Ayah Mccallum - 06/04/2024 12:47 PM EST Please resubmit script for pantoprazole for once a day. Insurance won;t cover twice a day. documented in this encounter Plan of Treatment Upcoming Encounters Date Type Department Care Team (Late st Contact Info) Description 07/04/2024 8:00 AM EDT Appointment [facility] [address] [facility] [address] [place] [phone] 08/05/2024 8:00 AM EDT Office Visit Bariatric Surgery - [place] [address] [phone] Galindo Lay MD [address] [address] 09/09/2024 8:30 AM EDT Office Visit [facility] Hematology Oncology [address] [place] [phone] Bari Cordon MD [address] [place] [address] documented as of this encounter Visit Diagnoses Not on filedocumented in this encounter Care Teams Cream Maker Relationship Specialty Start Date End Date Antonia Sanchez MD [address] [place] [address] PCP - General Internal Medicine 02/08/15 documented as of this encounter
--- OUTSIDE RECORDS SUMMARY | 2024-06-13 14:11 | XMS_ITS | Encounter Summary ---
Author Organization [facility] [place] [address] Care Team Providers Care Band Director Name Role Phone Antonia Sanchez MD Primary Care Provider [phone] Encounter Details Date Type Department Care Team (Late st Contact Info) Description 01/09/2024 9:34 AM EDT Hospital Encounter TH HISTORIC ENCOUNTERS [facility] CONVERSION ONLY Bari Cordon MD [address] [place] [address] Social History Tobacco Use Types Packs/Day Years [...] SNOMED CT(R) ??? Chronic ITP (idiopathic thrombocytopenia) (HCC) CHRONIC IDIOPATHIC THROMBOCYTOPENIC PURPURA Past Medical History: Diagnosis Date ??? Hearing deficit, bilateral ??? Idiopathic thrombocytopenic purpura (ITP) (HCC) 1938 Has been treated intermittently with prednisone [...] Info) Description 07/04/2024 8:00 AM EDT Appointment [facility] [address] [facility] 2nd [place] [phone] 08/05/2024 8:00 AM EDT Office Visit Bariatric Surgery - [place] [address] [phone] Galindo Lay MD [address] [address] 09/09/2024 8:30 AM EDT Office Visit [facility] Hematology Oncology [address] [place] [phone] Bari Cordon MD [address] [place] [address] documented as of this encounter Visit Diagnoses Not on filedocumented in this encounter Additional Health Concerns Infection Onset Date Last Indicated Resolved Time Respiratory Rule-Out 03/27/2024 03/27/2024 024 10:28 PM EST COVID-19 Rule-Out 03/27/2024 03/27/2024 03/27/2024 10:28 PM EST Gastrointestinal Rule-Out 03/27/2024 03/27/2024 1:28 AM EST C. Diff Rule-Out Infection 03/27/2024 03/27/2024 1 05/29/2023 12:43 AM EST documented as of this encounter Care Teams Band Director Relationship Specialty Start Date End Date Antonia Sanchez MD [address] [place] [address] PCP - General Internal Medicine 02/08/15 documented as of this encounter
--- OUTSIDE RECORDS SUMMARY | 2024-06-13 14:11 | XMS_ITS | Clinical Summary ---
Author Organization [facility] Address [address] [place] [address] Care Team Providers Care Telephone Directory Distributor Driver Name Role Phone Antonia Sanchez MD Primary Care Provider [phone] Allergies Active Allergy Reactions Criticality Noted Date Comments Tyloxapol 01/29/2019 Medications Medication Sig Dispensed Refills Start Date End Date Status pantoprazole (PROTONIX) 40 MG tablet Take 1 tablet (40 mg total) by mouth 2 (two) times a day. before meals UD 0 10/28/2022 Active sucralfate (CARAFATE) 1 g tablet Take 1 tablet (1 g total) by mouth 4 (four) times a day. 0 Active Active Problems Problem Noted Date Diagnosed Date Chronic ITP (idiopathic thrombocytopenia) 2022 Family History Medical History Relation Name Comments No Sig Med Hx Brother Mental illness Daughter No Sig Med Hx Father Heart attack Mother Hypothyroidism Mother No Sig Med Hx Sister 1 No Sig Med Hx Sister 2 Relation Name Status Comments Brother Alive Daughter Alive Father Accidental deat h Mother Alive Sister 1 Alive Sister 2 Alive Son Alive Social History Tobacco Use Types Packs/Day Years Used Date Smoking Tobacco: Former Cigarettes 2 40 Q uit: 2014 Smokeless Tobacco: Never Alcohol Use Standard Drinks/Week Comments No 0 (1 standard drink = 0.6 oz pur e alcohol) Quit 12 years ago Sex and Gender Information Value Date Recorded Sex Assigned at Female 11/29/2022 2:26 PM EDT Gender Identity Not on file Sexual Orientation Not on file Job Start Date Occupation Industry Not on file Not on file Not on file Last Filed Vital Signs Vital Sign Reading Time Taken Comments Blood Pressure 116/59 01/15/2024 8:06 AM EDT Pulse 78 01/15/2024 8:06 AM EDT Temperature 36.9 ??C (98.5 ??F) 01/15/2024 8:06 AM ED T Respiratory Rate 18 11/20/2023 9:1 6 AM EDT Oxygen Saturation 100% 01/15/2024 8:06 AM EDT Inhaled Oxygen Concentration - - Weight 67.1 kg (147 lb 14.9 oz) 01/15/2024 8:06 AM EDT Height 165.1 cm (5' 5 ) 02/02/2021 9:56 AM EDT Body Mass Index 24.62 02/02/2021 9:56 AM EDT Plan of Treatment Health Maintenance Due Date Last Done Comments Hepatitis B Vaccines (1 of 3 - 3-dose series) 1967 Hepatitis C Screening 1965 Lung Cancer Screening (Low Dose CT) 1967 COVID-19 Vaccine (#1) 1967 Depression Screening 1979 BMI Counseling 06/25/1985 Preventative Health Evaluation 06/25/1985 Cervical Cancer Screening (Pap Smear) 06/25/1988 Colon Cancer Screening (Colonoscopy) 06/25/2012 Breast Cancer Screening (Mammogram) 06/25/2017 Shingrix-Zoster Vaccine (1 o f 2) 06/25/2017 DTap / Tdap / Td (3 - Td or Tdap) 04/17/2023 04/17/2013, 07/17/2011 Influenza Vaccine (#1) 2023 Pneumococcal Vaccine Aged Out 06/09/2013, 04/07/2013 No longer eligible based on patient's age to complete this topic RSV Ped < 20 months Aged Out No longe r eligible based on patient's age to complete this topic Care Teams Telephone Directory Distributor Driver Relationship Specialty Start Date End Date Antonia Sanchez MD [address] [place] [address] PCP - General Internal Medicine 01/17/23
--- OUTSIDE RECORDS SUMMARY | 2024-06-13 14:11 | XMS_ITS | Encounter Summary ---
[facility] [place] [address] Care Team Providers Care Academic Affairs Dean Name Role Phone Antonia Sanchez MD Primary Care Provider [phone] Encounter Details Date Type Department Care Team [...] 11:44 AM Encounter Date: 01/15/2024 Status: Signed Dough Mixer: Saima Alexander RN (Registered Nurse) Pt arrives [...] surgical site/ulcer site from time to time. Denies any bleeding recently. Pt reports no issues. Takes care of her dependent . Has a job interview today with N which she is excited about. IV obtained x 3 attempts and 2 nurses due to difficult IV stick/rolling veins. Pt premedicated and rested x [...] Info) Description 07/04/2024 8:00 AM EDT Appointment [facility] [address] [facility] 2nd [place] [phone] 08/05/2024 8:00 AM EDT Office Visit Bariatric Surgery - [place] [address] [phone] Galindo Lay MD 175 [facility] [address] [place] [address] 09/09/2024 8:30 AM EDT Office Visit [facility] Hematology Oncology [address] [place] [phone] Bari Cordon MD [address] [place] [address] documented as of this encounter Visit Diagnoses [...] documented as of this encounter Care Teams Academic Affairs Dean Relationship Specialty Start Date End Date Antonia Sanchez MD [facility] [place] [phone] PCP - General Internal Medicine 02/08/15 documented as of this encounter
== END 2024-06-13 13:12 | disposition home or self-care (01) ==
PROVIDERS: PCP Internal Medicine; Visit Provider Internal Medicine
DX: R63.4 Abnormal weight loss (principal); F12.20 Cannabis dependence, uncomplicated; D69.3 Immune thrombocytopenic purpura; F41.1 Generalized anxiety disorder; Z98.84 Bariatric surgery status; Z63.4 Disappearance and death of family member; G47.9 Sleep disorder, unspecified; Z86.39 Personal history of other endocrine, nutritional and metabolic disease

== ENCOUNTER → 2024-06-13 12:38 | Outpatient (BNVA) | payer MEDICAID, SELFPAY | PROVIDERS: PCP Internal Medicine; Visit Provider Internal Medicine | DX: R63.4 Abnormal weight loss (principal); F12.20 Cannabis dependence, uncomplicated; D69.3 Immune thrombocytopenic purpura; F41.1 Generalized anxiety disorder; G47.9 Sleep disorder, unspecified; Z63.4 Disappearance and death of family member; Z86.39 Personal history of other endocrine, nutritional and metabolic disease; Z98.84 Bariatric surgery status | CPT/HCPCS: 96127; 99212 ==

== ENCOUNTER 2024-07-09 11:45 | Outpatient (REF) | payer OTHER, SELFPAY ==
--- OUTSIDE RECORDS SUMMARY | 2024-07-09 15:32 | XMS_ITS | Clinical Summary ---
Author Organization [facility] Address [address] [place] [address] Care Team Providers Care Gill Box Operator Name Role Phone Antonia Sanchez MD Primary Care Provider [phone] Allergies Active Allergy Reactions Criticality Noted Date [...] age to complete this topic Care Teams Gill Box Operator Relationship Specialty Start Date End Date Antonia Sanchez MD [address] [place] [address] PCP - General Internal Medicine 01/17/23
--- OUTSIDE RECORDS SUMMARY | 2024-07-09 15:32 | XMS_ITS | Encounter Summary ---
Author Organization [facility] [place] [address] Care Team Providers Care Carrier Associate Name Role Phone Antonia Sanchez MD Primary Care Provider [phone] Encounter Details Date Type Department Care Team [...] 11:44 AM Encounter Date: 01/15/2024 Status: Signed Audit Clerks Supervisor: Saima Alexander RN (Registered Nurse) Pt arrives [...] . Has a job interview today with [employer] which she is excited about. IV obtained [...] Description 07/10/2024 8:00 AM EDT Nutrition Bariatric [facility] 175 [facility] [address] [place] [phone] Ligia Banks, RD 175 [facility] [address] [place] [address] 08/01/2024 8:00 AM EDT Appointment [facility] Infusion Center 271 [facility] 2nd [place] [phone] 08/05/2024 8:00 AM EDT Office Visit Bariatric Surgery [facility] [address] [phone] Galindo Lay MD [address] [address] 09/09/2024 8:30 AM EDT Office Visit [facility] Hematology Oncology [address] [place] [phone] Bari Cordon MD [address] [place] [address] documented as of this encounter Visit Diagnoses [...] documented as of this encounter Care Teams Carrier Associate Relationship Specialty Start Date End Date Antonia Sanchez MD [address] [place] [address] PCP - General Internal Medicine 02/08/15 documented as of this encounter
--- OUTSIDE RECORDS SUMMARY | 2024-07-09 15:32 | XMS_ITS | Encounter Summary ---
Author Organization [facility] [place] [address] Care Team Providers Care Grocery Deliverer Name Role Phone Antonia Sanchez MD Primary Care Provider [phone] Encounter Details Date Type Department Care Team (Latest Contact Info) Description 07/04/2024 Lab Requisition [facility] - Main Lab 299 [facility] [place] [address] Antonia Sanchez MD 262 [place] [phone] Immune thrombocytopenic purpura (CMS/HCC); Personal history of [...] 8:00 AM EDT Nutrition Bariatric Surgery - [place] 175 [facility] [address] [place] [phone] Ligia Banks, RD [address] [address] 08/01/2024 8:[address] [facility] Infusion Center 271 [facility] 2nd [place] [phone] 08/05/2024 8:00 AM EDT Office Visit Bariatric Surgery - [place] [address] [phone] Galindo Lay MD [address] [address] 09/09/2024 8:30 AM EDT Office Visit [facility] Hematology Oncology [address] [place] [phone] Bari Cordon MD [address] [place] [address] documented as of this encounter Procedures Procedure [...] * SST tube (07/04/2024 8:47 AM EDT) [facility] Extra Tube Hold for add-ons. 07/04/2024 12:01 PM EDT [facility] Comment:Auto resulted. Blood Venous blood specimen / Unknown 07/04/2024 8:47 AM EDT 07/04/2024 10:19 AM EDT us Antonia Sanchez MD LAB BLOOD ORDERABLES Final Resul t [facility] [address] [place] [address], [place] [phone] * (ABNORMAL) Comprehensive metabolic panel (07/04/2024 8:47 AM EDT) [facility] Sodium 138 133 - 145 mmol/L LAB CHEMISTRY METHOD 07/04/2024 12:26 PM [facility] Potassium 3.9 3.5 - 5.5 mmol/L LAB CHEMISTRY METHOD 07/04/2024 12:26 PM [facility] Chloride 105 96 - 110 mmol/L LAB CHEMISTRY METHOD 07/04/2024 12:26 PM [facility] CO2 29 21 - 32 mmol/L LAB CHEMISTRY METHOD 07/04/2024 12:26 PM [facility] Anion Gap 4 3 - 11 LAB CHEMISTRY METHOD 07/04/2024 12:26 PM [facility] Glucose 135(H) 70 - 100 mg/dL LAB CHEMISTRY METHOD 07/04/2024 12:26 PM [facility] BUN 9 5 - 25 mg/dL LAB CHEMISTRY METHOD 07/04/2024 12:26 PM [facility] Creatinine 0.43(L) 0.50 - 1.10 mg/dL LAB CHEMISTRY METHOD 07/04/2024 12:26 PM [facility] eGFR 114 >=60 mL/min/1. 73m2 LAB CHEMISTRY METHOD 07/04/2024 12:26 PM [facility] Comment:Calculation based on the??Chronic Kidney Disease Epidemiology Collaboration (CKD-EPI) equation refit??without adjustment for race. BUN/Creatinine Ratio 20.9 LAB CHEMISTRY METHOD 07/04/2024 12:26 PM [facility] Calcium 8.2(L) 8.5 - 10.5 mg/dL LAB CHEMISTRY METHOD 07/04/2024 12:26 PM [facility] AST (SGOT) 15 10 - 42 unit/L LAB CHEMISTRY METHOD 07/04/2024 12:26 PM [facility] ALT (SGPT) 16 10 - 60 unit/L LAB CHEMISTRY METHOD 07/04/2024 12:26 PM [facility] Alkaline Phosphatase 74 42 - 121 unit/L LAB CHEMISTRY METHOD 07/04/2024 12:26 PM [facility] Total Protein 6.3 6.0 - 8.0 g/dL LAB CHEMISTRY METHOD 07/04/2024 12:26 PM [facility] Albumin 3.5 3.2 - 5.0 g/dL LAB CHEMISTRY METHOD 07/04/2024 12:26 PM [facility] Total Bilirubin 0.4 0.0 - 1.4 mg/dL LAB CHEMISTRY METHOD 07/04/2024 12:26 PM [facility] Blood Venous blood specimen / Unknown 07/04/2024 8:47 AM EDT 07/04/2024 10:18 AM EDT us Antonia Sanchez MD LAB BLOOD ORDERABLES Final Resul t [facility] [address] [place] [address], * (ABNORMAL) Vitamin D 25 hydroxy (07/04/2024 8:47 AM EDT) [facility] Vit D, 25-Hydroxy 24.8(L) 30.0 - 80.0 ng/mL LAB CHEMISTRY METHOD 07/04/2024 1:19 PM EDT [facility] Blood Venous blood specimen / Unknown 07/04/2024 8:47 AM EDT 07/04/2024 10:18 AM EDT us Antonia Sanchez MD LAB BLOOD ORDERABLES Final Resul t [facility] [address] [place] [address], [place] [phone] * Vitamin B12 (07/04/2024 8:47 AM EDT) [facility] Vitamin B-12 336 250 - 900 pcg/mL LAB CHEMISTRY METHOD 07/04/2024 12:26 PM EDT [facility] Blood Venous blood specimen / Unknown 07/04/2024 8:47 AM EDT 07/04/2024 10:18 AM EDT us Antonia Sanchez MD LAB BLOOD ORDERABLES Final Resul t [facility] [address] [place] [address], [place] [phone] * Thyroid stimulating hormone with reflex to free t4 and free t3 (07/04/2024 8:47 AM EDT) [facility] TSH 0.43 0.40 - 4.00 mcIU/mL LAB CHEMISTRY METHOD 07/04/2024 1:19 PM EDT [facility] Blood Venous blood specimen / Unknown 07/04/2024 8:47 AM EDT 07/04/2024 10:18 AM EDT us Antonia Sanchez MD LAB BLOOD ORDERABLES Final Resul t [facility] [address] [place] [address], documented in this encounter Visit Diagnoses Diagnosis Immune thrombocytopenic purpura (CMS/HCC) Immune thrombocytopenic purpura Personal history of other endocrine, nutritional and metabolic disease documented in this encounter Care Teams Grocery Deliverer Relationship Specialty Start Date End Date Antonia Sanchez MD [address] [place] [address] PCP - General Internal Medicine 02/08/15 documented as of this encounter
--- OUTSIDE RECORDS SUMMARY | 2024-07-09 15:32 | XMS_ITS | Encounter Summary ---
Author Organization [facility] [place] [address] Care Team Providers Care Concrete Foreman Name Role Phone Antonia Sanchez MD Primary Care Provider [phone] Encounter Details Date Type Department Care Team (Late st Contact Info) Description 01/09/2024 9:34 AM EDT Hospital Encounter TH HISTORIC ENCOUNTERS EASTERN CONVERSION ONLY Bari Cordon MD [address] [place] [address] Social History Tobacco Use Types Packs/Day Years [...] 8:00 AM EDT Nutrition Bariatric Surgery - [place] [address] [phone] Ligia Banks, RD [address] [address] 08/01/2024 8:00 AM EDT Appointment [facility] Infusion Center 271 [facility] 2nd [place] [phone] 08/05/2024 8:00 AM EDT Office Visit Bariatric Surgery [facility] [address] [phone] Galindo Lay MD [address] [address] 09/09/2024 8:30 AM EDT Office Visit [facility] Hematology Oncology [address] [place] [phone] Bari Cordon MD [address] [place] [address] documented as of this encounter Visit Diagnoses [...] documented as of this encounter Care Teams Concrete Foreman Relationship Specialty Start Date End Date Antonia Sanchez MD [address] [place] [address] PCP - General Internal Medicine 02/08/15 documented as of this encounter
--- OUTSIDE RECORDS SUMMARY | 2024-07-09 15:32 | XMS_ITS | Clinical Summary ---
Author Organization [facility] Address [address] [place] [address] Phone Care Team Providers Care Answering Service Telephone Operator Name Role Phone Antonia Sanchez MD Primary Care Provider Allergies Active Allergy Reactions Criticality Noted Date [...] - 07/04/2024 11:59 PM EDT Hospital Encounter [facility] [address] [phone] Bari Cordon MD Chronic ITP (idiopathic thrombocytopenia) (CMS/HCC) (Primary Dx) Discharge Disposition: Home or Self Care 07/04/2024 Lab Requisition [facility] - Main Lab [address] [facility] [place] [address] Antonia Sanchez MD Immune thrombocytopenic purpura (CMS/HCC); Personal history of other endocrine, nutritional and metabolic disease 06/04/2024 7:44 AM EST - 06/04/2024 11:59 PM EST Hospital Encounter [facility] [address] [place] [phone] Bari Cordon MD Chronic ITP (idiopathic thrombocytopenia) (CMS/HCC) (Primary Dx); Purpura, thrombocytopenic, idiopathic (CMS/HCC) Discharge Disposition: Home or Self Care 06/04/2024 Telephone Bariatric Surgery [address] [phone] Galindo Lay MD Medication Problem (Pantoprazole) 05/30/2024 6:38 AM EST - 05/30/2024 11:59 PM EST Hospital Encounter [facility] Interventional Radiology [address] [place] [phone] Chronic ITP (idiopathic thrombocytopenia) (CMS/HCC) Discharge Disposition: Home or Self Care 05/28/2024 Telephone Bariatric Surgery - [address] [phone] Galindo Lay MD Med Refill (Pantoprazole) 05/16/2024 Telephone [facility] Hematology Oncology [address] [place] [phone] Nancy Mata MA Port Placement appt 05/13/2024 9:00 AM EST Office Visit [facility] Hematology Oncology [address] [place] [phone] Bari Cordon MD Chronic ITP (idiopathic thrombocytopenia) (CMS/HCC) (Primary Dx) 05/06/2024 8:00 AM EST - 05/06/2024 11:59 PM EST Hospital Encounter [facility] [address] [place] [phone] Bari Cordon MD Chronic ITP (idiopathic thrombocytopenia) (CMS/HCC) (Primary Dx) Discharge Disposition: Home or Self Care from Last 3 Months Surgical History Surgery Date Site/Laterality Comments TUBAL LIGATION PROCEDURE: HISTORICAL TUBAL LIGATION TONSILLECTOMY PROCEDURE: HISTORICAL TONSILLECTOMY OTHER SURGICAL HISTORY 09/2003 PROCEDURE: IN ARTHRODESIS ANTERIOR SPINAL DFRM 4-7 VRT SGM; COMMENT: Dr. Luis SECTION PROCEDURE: HISTORICAL ; COMMENT: times 2 HYSTERECTOMY 2008 PROCEDURE: HISTORICAL HYSTERECTOMY; COMMENT: Bleeding MULTIPLE TOOTH EXTRACTIONS PROCEDURE: HISTORICAL DENTAL EXTRACTION ESOPHAGOGASTRODUODENOSCOPY 07/08/2021 PROCEDURE: IN ESOPHAGOGASTRODUODENOSCOPY TRANSORAL DIAGNOSTIC; COMMENT: esophagitis - recommend [...] 8:00 AM EDT Nutrition Bariatric Surgery - [place] [address] [phone] Ligia Banks, VAM[facility] [address] [address] 08/01/2024 8:00 AM EDT Appointment [facility] 271 [facility] [address] [place] [phone] 08/05/2024 8:00 AM EDT Office Visit Bariatric Surgery - [place] [address] [phone] Galindo Lay MD [address] [address] 09/09/2024 8:30 AM EDT Office Visit [facility] Hematology Oncology [address] [place] [address] Bari Cordon MD [address] [place] [address] Health Maintenance Due Date Last Done Comments [...] this topic Medical Devices Implanted Type Area Sprinkler Helper Device Identifier Shelf Expiration Date Model / Serial / Lot Port Pwr Slim Poly 6f Evelyn Inte Attach - [id number] - [id number] Implanted:Qty: 1 on 05/30/2024 by Seven Tanner MD at [facility] Central/Courtney pheral Catheters and Ports Right: Chest Wall CR BARD PERIPHERAL VASCULAR [id number] 02/06/2025 [id number] / [id number] / [id number] Procedures Procedure Name Priority Date/Time Associated Diagnosis [...] LAB CHEMISTRY METHOD 07/04/2024 1:19 PM EDT [facility] Blood Venous blood specimen / Unknown 07/04/2024 8:47 AM EDT 07/04/2024 10:18 AM EDT us Antonia Sanchez MD LAB BLOOD ORDERABLES Final Resul t Performing Organization Address City/[facility]/ZIP Co de Phone Number [facility] [address] [place] [address], [place] [phone] * SST tube (07/04/2024 8:47 AM EDT) [facility] Extra Tube Hold for add-ons. 07/04/2024 12:01 PM EDT [facility] Comment:Auto resulted. Blood Venous blood specimen / Unknown 07/04/2024 8:47 AM EDT 07/04/2024 10:19 AM EDT us Antonia Sanchez MD LAB BLOOD ORDERABLES Final Resul t Performing Organization Address [facility]/ZIP Co de Phone Number [facility] [address] [place] [address], [place] [phone] * (ABNORMAL) CBC auto differential (07/04/2024 8:47 AM EDT) Only the most recent of2 resultswithin the time period is included. Pathologist [facility] WBC 3.7(L) 4.8 - 10.8 K/mcL LAB HEMETOLOGY METHOD 07/04/2024 10:46 AM EDT [facility] RBC 3.50(L) 3.80 - 4.80 M/[facility] LAB HEMETOLOGY METHOD 07/04/2024 10:46 AM EDT [facility] Hemoglobin 10.1(L) 11.5 - 16.0 g/dL LAB HEMETOLOGY METHOD 07/04/2024 10:46 AM EDT [facility] Hematocrit 30.3(L) 35.0 - 47.0 % LAB HEMETOLOGY METHOD 07/04/2024 10:46 AM [facility] MCV 85.8 79.0 - 98.0 FL LAB HEMETOLOGY METHOD 07/04/2024 10:46 AM [facility] MCH 28.6 27.0 - 32.0 pcg LAB HEMETOLOGY METHOD 07/04/2024 10:46 AM [facility] MCHC 33.3 32.0 - 37.0 g/dL LAB HEMETOLOGY METHOD 07/04/2024 10:46 AM [facility] RDW 13.1 11.0 - 15.0 % LAB HEMETOLOGY METHOD 07/04/2024 10:46 AM [facility] Platelets 97(L) 130 - 400 K/mcL LAB HEMETOLOGY METHOD 07/04/2024 10:46 AM [facility] Comment:previously verified by slide MPV 11.9(H) 7.0 - 11.0 FL LAB HEMETOLOGY METHOD 07/04/2024 10:46 AM [facility] NRBC 0.0 <1.0 % LAB HEMETOLOGY METHOD 07/04/2024 10:46 AM [facility] NRBC Absolute 0.00 <0.10 K/mcL LAB HEMETOLOGY METHOD 07/04/2024 10:46 AM [facility] Neutrophils Relative 64.4 % LAB HEMETOLOGY METHOD 07/04/2024 10:46 AM [facility] Lymphocytes Relative 25.4 % LAB HEMETOLOGY METHOD 07/04/2024 10:46 AM [facility] Monocytes Relative 7.5 % LAB HEMETOLOGY METHOD 07/04/2024 10:46 AM [facility] Eosinophils Relative 0.8 % LAB HEMETOLOGY METHOD 07/04/2024 10:46 AM [facility] Basophils Relative 1.6 % LAB HEMETOLOGY METHOD 07/04/2024 10:46 AM EDT [facility] Immature Granulocytes Relative 0.3 % LAB HEMETOLOGY METHOD 07/04/2024 10:46 AM EDT [facility] Neutrophils Absolute 2.41 1.50 - 7.00 K/mcL LAB HEMETOLOGY METHOD 07/04/2024 10:46 AM EDT [facility] Lymphocytes Absolute 0.95(L) 1.00 - 5.00 K/mcL LAB HEMETOLOGY METHOD 07/04/2024 10:46 AM EDT [facility] Monocytes Absolute 0.28 0.20 - 1.00 K/mcL LAB HEMETOLOGY METHOD 07/04/2024 10:46 AM EDT [facility] Eosinophils Absolute 0.03 0.00 - 0.50 K/mcL LAB HEMETOLOGY METHOD 07/04/2024 10:46 AM EDT [facility] Basophils Absolute 0.06 0.00 - 0.20 K/mcL LAB HEMETOLOGY METHOD 07/04/2024 10:46 AM EDT [facility] Immature Granulocytes Absolute 0.01 0.00 - 0.03 K/mcL LAB HEMETOLOGY METHOD 07/04/2024 10:46 AM [facility] Blood Blood sample taken from central line / Unknown Existing Catheter / Unknown 07/04/2024 8:47 AM EDT 07/04/2024 9:18 AM EDT us Bari Cordon MD LAB BLOOD ORDERABLES Final R esult [facility] [address] [place] [address], * (ABNORMAL) Vitamin D 25 hydroxy (07/04/2024 8:47 AM EDT) Vit D, 25-Hydroxy 24.8(L) 30.0 - 80.0 ng/mL LAB CHEMISTRY METHOD 07/04/2024 1:19 PM EDT [facility] Blood Venous blood specimen / Unknown 07/04/2024 8:47 AM EDT 07/04/2024 10:18 AM EDT us Antonia Sanchez MD LAB BLOOD ORDERABLES Final Resul t Performing Organization Address City/[facility] Co de Phone Number [facility] [address] [place] [address], [place] [phone] * Hemoglobin A1c (07/04/2024 8:47 AM EDT) Pathologist [facility] Hemoglobin A1C 5.5 <6.5 % LAB CHEMISTRY METHOD 07/04/2024 12:41 PM EDT [facility] Mean Bld Glu Estim. 111 mg/dL LAB CHEMISTRY METHOD 07/04/2024 12:41 PM EDT [facility] Blood Blood sample taken from central line / Unknown Existing Catheter / Unknown 07/04/2024 8:47 AM EDT 07/04/2024 9:18 AM EDT us Antonia Sanchez MD LAB BLOOD ORDERABLES Final Resul t Performing Organization Address [facility] de Phone Number [facility] [address] [place] [address], [place] [phone] * Vitamin B12 (07/04/2024 8:47 AM EDT) Vitamin B-12 336 250 - 900 pcg/mL LAB CHEMISTRY METHOD 07/04/2024 12:26 PM EDT [facility] Blood Venous blood specimen / Unknown 07/04/2024 8:47 AM EDT 07/04/2024 10:18 AM EDT us Antonia Sanchez MD LAB BLOOD ORDERABLES Final Resul t Performing Organization Address City/[facility] de Phone Number [facility] [address] [place] [address], * (ABNORMAL) Comprehensive metabolic panel (07/04/2024 8:47 AM EDT) Only the most recent of2 resultswithin the time period is included. Sodium 138 133 - 145 mmol/L LAB CHEMISTRY METHOD 07/04/2024 12:26 PM [facility] Potassium 3.9 3.5 - 5.5 mmol/L LAB CHEMISTRY METHOD 07/04/2024 12:26 PM [facility] Chloride 105 96 - 110 mmol/L LAB CHEMISTRY METHOD 07/04/2024 12:26 PM [facility] CO2 29 21 - 32 mmol/L LAB CHEMISTRY METHOD 07/04/2024 12:26 PM [facility] Anion Gap 4 3 - 11 LAB CHEMISTRY METHOD 07/04/2024 12:26 PM [facility] Glucose 135(H) 70 - 100 mg/dL LAB CHEMISTRY METHOD 07/04/2024 12:26 PM [facility] BUN 9 5 - 25 mg/dL LAB CHEMISTRY METHOD 07/04/2024 12:26 PM [facility] Creatinine 0.43(L) 0.50 - 1.10 mg/dL LAB CHEMISTRY METHOD 07/04/2024 12:26 PM [facility] eGFR 114 >=60 mL/min/1. 73m2 LAB CHEMISTRY METHOD 07/04/2024 12:26 PM [facility] Comment:Calculation based on the??Chronic Kidney Disease Epidemiology Collaboration (CKD-EPI) equation refit??without adjustment for race. BUN/Creatinine Ratio 20.9 LAB CHEMISTRY METHOD 07/04/2024 12:26 PM [facility] Calcium 8.2(L) 8.5 - 10.5 mg/dL LAB CHEMISTRY METHOD 07/04/2024 12:26 PM EDT [facility] AST (SGOT) 15 10 - 42 unit/L LAB CHEMISTRY METHOD 07/04/2024 12:26 PM EDT [facility] ALT (SGPT) 16 10 - 60 unit/L LAB CHEMISTRY METHOD 07/04/2024 12:26 PM EDT [facility] Alkaline Phosphatase 74 42 - 121 unit/L LAB CHEMISTRY METHOD 07/04/2024 12:26 PM EDT [facility] Total Protein 6.3 6.0 - 8.0 g/dL LAB CHEMISTRY METHOD 07/04/2024 12:26 PM T [facility] Albumin 3.5 3.2 - 5.0 g/dL LAB CHEMISTRY METHOD 07/04/2024 12:26 PM [facility] Total Bilirubin 0.4 0.0 - 1.4 mg/dL LAB CHEMISTRY METHOD 07/04/2024 12:26 PM EDT [facility] Blood Venous blood specimen / Unknown 07/04/2024 8:47 AM EDT 07/04/2024 10:18 AM EDT us Antonia Sanchez MD LAB BLOOD ORDERABLES Final Resul t [facility] [address] [place] [address], * (ABNORMAL) Complete blood count (06/04/2024 8:49 AM EST) WBC 3.8(L) 4.8 - 10.8 K/mcL LAB HEMETOLOGY METHOD 06/04/2024 9:30 AM EST [facility] RBC 3.60(L) 3.80 - 4.80 M/mcL LAB HEMETOLOGY METHOD 06/04/2024 9:30 AM EST [facility] Hemoglobin 10.4(L) 11.5 - 16.0 g/dL LAB HEMETOLOGY METHOD 06/04/2024 9:30 AM [facility] Hematocrit 31.8(L) 35.0 - 47.0 % LAB HEMETOLOGY METHOD 06/04/2024 9:30 AM [facility] MCV 88.6 79.0 - 98.0 FL LAB HEMETOLOGY METHOD 06/04/2024 9:30 AM [facility] MCH 29.0 27.0 - 32.0 pcg LAB HEMETOLOGY METHOD 06/04/2024 9:30 AM [facility] MCHC 32.7 32.0 - 37.0 g/dL LAB HEMETOLOGY METHOD 06/04/2024 9:30 AM [facility] RDW 12.9 11.0 - 15.0 % LAB HEMETOLOGY METHOD 06/04/2024 9:30 AM [facility] Platelets 80(L) 130 - 400 K/mcL LAB HEMETOLOGY METHOD 06/04/2024 9:30 AM [facility] Comment:previously verified by slide MPV 12.0(H) 7.0 - 11.0 FL LAB HEMETOLOGY METHOD 06/04/2024 9:30 AM [facility] NRBC 0.0 <1.0 % LAB HEMETOLOGY METHOD 06/04/2024 9:30 AM [facility] NRBC Absolute 0.00 <0.10 K/mcL LAB HEMETOLOGY METHOD 06/04/2024 9:30 AM [facility] Blood Blood sample taken from central line / Unknown Existing Catheter / Unknown 06/04/2024 8:49 AM EST 06/04/2024 9:07 AM EST us Bari Cordon MD LAB BLOOD ORDERABLES Final R esult [facility] [address] [place] [address], * IR Insert Tunneled CVAD w Subq [...] Signed Date: 05/30/2024 14:46 ET Workstation ID: [id number] Transcribed By: Self Edit Transcribed Date: 05/30/2024 [...] and placed within the pocket. An 8 Canadian peel-away sheath with a hemostatic valve placed [...] Signed Date: 05/30/2024 14:46 ET Workstation ID: [id number] Transcribed By: Self Edit Transcribed Date: 05/30/2024 14:46 ET Bari Cordon MD IMG IR PROCEDURES Final Resu lt * Miscellaneous reference lab test (05/13/2024) Only the most recent of2 resultswithin the time period is included. us Provider Onbase LAB BLOOD ORDERABLES Final Re sult from Last [address] [facility] Pay[employer] PLAN Care Teams Answering Service Telephone Operator Relationship Specialty Start Date End Date Antonia Sanchez MD [address] [place] [address] PCP - General Internal Medicine 02/08/15
--- OUTSIDE RECORDS SUMMARY | 2024-07-09 15:32 | XMS_ITS | Encounter Summary ---
Author Organization [facility] Address [address] [place] [address] Care Team Providers Care Outpatient Facility Physical Therapist Name Role Phone Antonia Sanchez MD Primary Care Provider [phone] Reason for Visit * Episode Based Medications (Routine) - Authorized Specialty Diagnoses / Procedures Referred By Contblake t Referred To Contact Diagnoses Chronic ITP (idiopathic thrombocytopenia) (CMS/HCC) Bari Cordon MD [address] [place] [address] Phone: tel: fax: [address] [address] Phone: tel: fax: Referral ID Status Reason Start Date Expiration Date V isits Requested Visits Authorized [id number] Authorized 01/21/2024 01/20/2025 1 13 Encounter Details Date Type Department Care Team (Latest Contact Info) Description 07/04/2024 7:52 AM EDT - 07/04/2024 11:59 PM EDT Hospital Encounter [address] [phone] Bari Cordon MD [address] [place] [address] Chronic ITP (idiopathic thrombocytopenia) (CMS/HCC) (Primary Dx) [...] 8:00 AM EDT Nutrition Bariatric Surgery - [place] [address] [phone] [address] 08/01/2024 8:00 AM EDT Appointment [facility] 271 [facility] 2nd [place] [phone] 08/05/2024 8:00 AM EDT Office Visit Bariatric Surgery - [place] [address] [phone] Galindo Lay MD [address] [address] 09/09/2024 8:30 AM EDT Office Visit [facility] Hematology Oncology [address] [place] [phone] Bari Cordon MD [address] [place] [address] documented as of this encounter Procedures Procedure [...] K/mcL LAB HEMETOLOGY METHOD 07/04/2024 10:46 AM [facility] RBC 3.50(L) 3.80 - 4.80 M/mcL LAB HEMETOLOGY METHOD 07/04[facility]2024 10[facility] Hemoglobin 10.1(L) 11.5 - 16.0 g/dL LAB HEMETOLOGY METHOD 07/04/2024 10:46 AM [facility] Hematocrit 30.3(L) 35.0 - 47.0 % LAB HEMETOLOGY METHOD 07/04/2024 10:46 AM [facility] MCV 85.8 79.0 - 98.0 FL LAB HEMETOLOGY METHOD 07/04/2024 10:46 AM [facility] MCH 28.6 27.0 - 32.0 pcg LAB HEMETOLOGY METHOD 07/04/2024 10:46 AM [facility] MCHC 33.3 32.0 - 37.0 g/dL LAB HEMETOLOGY METHOD 07/04/2024 10:46 AM [facility] RDW 13.1 11.0 - 15.0 % LAB HEMETOLOGY METHOD 07/04/2024 10:46 AM [facility] Platelets 97(L) 130 - 400 K/mcL LAB HEMETOLOGY METHOD 07/04/2024 10:46 AM [facility] Comment:previously verified by slide MPV 11.9(H) 7.0 - 11.0 FL LAB HEMETOLOGY METHOD 07/04/2024 10:46 AM [facility] NRBC 0.0 <1.0 % LAB HEMETOLOGY METHOD 07/04/2024 10:46 AM [facility] NRBC Absolute 0.00 <0.10 K/mcL LAB HEMETOLOGY METHOD 07/04/2024 10:46 AM [facility] Neutrophils Relative 64.4 % LAB HEMETOLOGY METHOD 07/04/2024 10:46 AM [facility] Lymphocytes Relative 25.4 % LAB HEMETOLOGY METHOD 07/04/2024 10:46 AM [facility] Monocytes Relative 7.5 % LAB HEMETOLOGY METHOD 07/04/2024 10:46 AM [facility] Eosinophils Relative 0.8 % LAB HEMETOLOGY METHOD 07/04/2024 10:46 AM [facility] Basophils Relative 1.6 % LAB HEMETOLOGY METHOD 07/04/2024 10:46 AM [facility] Immature Granulocytes Relative 0.3 % LAB HEMETOLOGY METHOD 07/04/2024 10:46 AM [facility] Neutrophils Absolute 2.41 1.50 - 7.00 K/mcL LAB HEMETOLOGY METHOD 07/04/2024 10:46 AM [facility] Lymphocytes Absolute 0.95(L) 1.00 - 5.00 K/mcL LAB HEMETOLOGY METHOD 07/04/2024 10:46 AM [facility] Monocytes Absolute 0.28 0.20 - 1.00 K/mcL LAB HEMETOLOGY METHOD 07/04/2024 10:46 AM [facility] Eosinophils Absolute 0.03 0.00 - 0.50 K/mcL LAB HEMETOLOGY METHOD 07/04/2024 10:46 AM [facility] Basophils Absolute 0.06 0.00 - 0.20 K/mcL LAB HEMETOLOGY METHOD 07/04/2024 10:46 AM [facility] Immature Granulocytes Absolute 0.01 0.00 - 0.03 K/mcL LAB HEMETOLOGY METHOD 07/04/2024 10:46 AM EDT [facility] Blood Blood sample taken from central line / Unknown Existing Catheter / Unknown 07/04/2024 8:47 AM EDT 07/04/2024 9:18 AM EDT Bari Cordon MD LAB BLOOD ORDERABLES Final R esult [facility] [address] [place] [address], [place] [phone] documented in this encounter Visit Diagnoses Diagnosis [...] 08 documented in this encounter Care Teams Outpatient Facility Physical Therapist Relationship Specialty Start Date End Date Antonia Sanhcez MD [address] [place] [phone] PCP - General Internal Medicine 02/08/15 documented as of this encounter
--- OUTSIDE RECORDS SUMMARY | 2024-07-09 15:32 | XMS_ITS | Encounter Summary ---
Author Organization [facility] [place] [address] Care Team Providers Care Half Backer Name Role Phone Antonia Sanchez MD Primary Care Provider [phone] Reason for Visit * Reason Onset Date Comments Medication Problem 06/04/2024 Pantoprazole Encounter Details Date Type Department Care Team ([facility] st Contact Info) Description 06/04/2024 Telephone Bariatric Surgery - [place] 175 [facility] [address] [place] [phone] Galindo Lay MD 175 [facility] [address] [place] [address] Medication Problem (Pantoprazole) Social History Tobacco Use [...] 8:00 AM EDT Nutrition Bariatric Surgery - [place] [address] [phone] [address] [address] 08/01/2024 8:00 AM EDT Appointment [facility] 271 [facility] 2nd [place] [phone] 08/05/2024 8:00 AM EDT Office Visit Bariatric Surgery [facility] [address] [phone] Galindo Lay MD [address] [address] 09/09/2024 8:30 AM EDT Office Visit [facility] Hematology Oncology [address] [place] [phone] Bari Cordon MD [address] [place] [address] documented as of this encounter Visit Diagnoses Not on filedocumented in this encounter Care Teams Half Backer Relationship Specialty Start Date End Date Antonia Sanchez MD [address] [place] [address] PCP - General Internal Medicine 02/08/15 documented as of this encounter
[2024-07-09 16:09] LABS: MANUAL DIFF FLAG NO
[2024-07-09 16:18] LABS: Basophils Absolute Auto 0.1 X10*3/uL (0.0-0.2); Basophils Percent Auto 1.1 % (0-2); Eosinophils Percent Auto 0.4 % (0-4); Hematocrit 33.3 % (37.0-47.0); Hemoglobin 10.9 g/dl (12.0-16.0); Imm Gran Abs Auto 0.01 X10*3/uL (0.00-0.03); Imm Gran Pct Auto 0.2 % (0.0-0.4); Lymphocytes Absolute Auto 1.2 X10*3/uL (1.2-4.9); Lymphocytes Percent Auto 24.7 % (20-40); Mean Corpuscular HGB Conc 32.7 g/dl (31.0-35.0); Mean Corpuscular Hemoglobin 28.3 pg (27.0-33.0); Mean Corpuscular Volume 86.5 fL (80.0-98.0); Mean Platelet Volume 11.5 fL (9.4-12.3); Monocytes Absolute Auto 0.3 X10*3/uL (0.1-1.2); Monocytes Percent Auto 6.8 % (2-11); Neutrophils Absolute Auto 3.2 x10*3/uL (2.0-8.3); Neutrophils Percent Auto 66.8 % (45-73); Platelet Count 183 X10*3/uL (160-400); Red Blood Count 3.85 X10*6/uL (4.20-5.50); Red Cell Distribution Width 13.2 % (11.0-16.0); White Blood Count 4.7 X10*3/uL (4.8-10.8)
[2024-07-09 16:26] LABS: Estimated Average Glucose 111 mg/dL; Hemoglobin A1C 107.5981 umol/L; Hemoglobin A1c % 5.5 % (<6.0); Total Hemoglobin (HGBA1C) 2967.6795 umol/L
[2024-07-09 16:52] LABS: Vitamin B12 329 pg/mL (200-900)
[2024-07-09 17:17] LABS: Alanine Aminotransferase 13 U/L (0-31); Albumin Level 4.1 g/dL (3.5-5.0); Anion Gap 10 (12-20); Aspartate Amino Transferase 26 U/L (5-31); Bilirubin Total 0.3 mg/dL (0.0-1.0); Blood Urea Nitrogen 8 mg/dL (9-16); Calcium 8.9 mg/dL (8.4-10.2); Carbon Dioxide 30 mmol/L (22-29); Chloride 104 mmol/L (96-108); Estimated Glomerular Filt Rate > 60; Glucose Random 95 mg/dL (60-115); Potassium 3.7 mmol/L (3.3-5.1); Sodium 140 mmol/L (135-145); Total Protein 7.3 g/dL (6.5-8.0)
[2024-07-09 17:30] LABS: Alkaline Phosphatase 73 U/L (39-117)
[2024-07-09 17:40] LABS: Ferritin 18 ng/mL (10-250); TSH reflex Free T4 0.49 uIU/mL (0.32-4.0)
[2024-07-10 08:15] LABS: Syphilis Screen Nonreactive (Nonreactive)
[2024-07-10 08:50] LABS: HIV AB/AG Nonreactive (Nonreactive); HIV Num 1 0.05 S/CO (0.00-0.99); ~HepC Num1 0.18 S/CO (0.00-0.79); ~Hepatitis B Surface Antibody REACTIVE (Nonreactive); ~Hepatitis C Antibody Nonreactive (Nonreactive)
[2024-07-10 10:18] LABS: Herpes Simplex Type 2 IgG 5.42 index
[2024-07-13 21:33] LABS: Tetanus Antitoxiod Antibody 2.75 IU/mL
[2024-07-14 14:28] LABS: Vitamin D 25-OH, D2 <4 ng/mL; Vitamin D 25-OH, D3 26 ng/mL; Vitamin D 25-OH, Total 26 ng/mL (30-100)
== END 2024-07-09 11:46 | disposition home or self-care (01) ==
LOC: HO.HMGCLDS 11:45
PROVIDERS: PCP Internal Medicine; Visit Provider Internal Medicine
DX: Z00.01 Encounter for general adult medical examination with abnormal findings (principal); D50.0 Iron deficiency anemia secondary to blood loss (chronic); F41.1 Generalized anxiety disorder; D69.3 Immune thrombocytopenic purpura; Z11.3 Encounter for screening for infections with a predominantly sexual mode of transmission; Z86.39 Personal history of other endocrine, nutritional and metabolic disease; Z28.39 Other underimmunization status
CPT/HCPCS: 36415; 80053; 82306; 82607; 82728; 83036; 84443; 85025; 86695; 86696; 86706; 86735; 86762; 86765; 86774; 86780; 86787; 86803; 87389; 99212; 99396

== ENCOUNTER 2024-07-09 11:45 | Outpatient (AMB) | payer OTHER, SELFPAY ==
[2024-07-09 12:27] VITALS: BP 106/68; PULSE 74; O2SAT 96; BMI 19.7
--- NOTE | 2024-07-09 12:27 | MHC.PC.OV ---
Vital Signs 07/09/24 12:27 Height 5 ft 5 in Weight 118 lb 8 oz BMI 19.7 BP 106/68 Blood Pressure Location Rt brachial Position Sitting Pulse 74 Pulse Source Pulse Oximeter Pulse Oximetry (%) 96 Oxygen Delivery Method Room Air Intake Visit Reasons: Annual PE Allergies acetaminophen [From Tylox] Allergy (Unknown, Verified 07/09/24 12:27) Nausea, sweating oxycodone [From PERCOCET] Allergy (Unknown, Verified 07/09/24 12:27) HIVES Medication List - Last Reconciled 07/09/24 by Antonia Sanchez MD escitalopram oxalate (Lexapro) 5 mg PO DAILY hydroxyzine HCl 25 mg PO BID lidocaine-prilocaine 2.5-2.5 % 1 appl topical ONCE pantoprazole (Protonix) 40 mg PO DAILY Tobacco use date assessed: 07/09/24 Dental Screening Dental Screen Date: 07/09/24 Did you have a dental visit in the last 12 months?: Yes Did you have a dental problem in the last 6 months where you did not have access to dental care?: No Was dental information given to patient?: Patient has dentist HPI Annual PE HPI Details Physical exam appointment - The patient is a 59-year-old female presenting for a wellness examination and to discuss recent laboratory results. 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 - Noteworthy diagnoses include generalized anxiety disorder (Lexapro increased 20 mg), now seeing psychiatrist and therapist management through them vitamin deficiencies (B12 and D), and iron-deficiency anemia. - Previous colonoscopy following an episode of internal bleeding, conducted last year while inpatient but cannot recall specific details about the performing team. - Significant past medical history includes heavy menstrual bleeding attributed to fibroids, deemed benign. History of total hysterectomy as per patient Medications - Lexapro 20 mg daily for generalized anxiety disorder through Psychiatry - Hydroxyzine for anxiety management, dosage unspecified through Psychiatry - Pantoprazole for management of gastroesophageal reflux disease, prescribed by bariatric surgeon - Lidocaine cream, prescribed by Dr. Casas for unspecified indications Problem List - Generalized Anxiety Disorder - Vitamin D Deficiency - Iron-Deficiency Anemia - Vitamin B12 Deficiency - Gastroesophageal Reflux Disease - intentional Weight Loss - History of Heavy Menstrual Bleeding Due to Fibroids, history of total hysterectomy Diagnostic results - Labs: Hemoglobin 10.1, Hematocrit 30.3, White Blood Cell Count 3.7, Red Blood Cell Count 3.5, B12 level 336, Glucose 135 (non-fasting), Creatinine 0.43, Glomerular Filtration Rate 114, Calcium 8.2, AST 15, ALT 16, Alkaline Phosphatase 70.4, Albumin 3.5, Total Bilirubin 0.4, Vitamin D low, Iron low. - A1c: 5.5 Review of Systems General: No fever no chills neurological: No headaches no dizziness ear nose throat: No sore throat no hearing difficulty no ear pain cardiovascular: No syncope, no chest pain, no palpitations gastrointestinal: No nausea vomiting or diarrhea endocrine: No polyuria polydipsia no heat intolerance genitourinary: No dysuria skin: No new complaints Physical Exam general: No acute distress HEENT: No acute findings neck: Supple respiratory system: Lungs are clear, able to talk in full sentences, no audible wheeze, no stridor cardiovascular: S1-S2 regular in rate and rhythm Breast exam benign gastrointestinal: No pain in the belly extremities: No new findings PERFUME MAKER: Alert awake oriented x3 motor sensory intact, balance intact tandem pass skin: Normal turgor, no problem on the skin, [facility] Surgical History History of gastric bypass Fusion of lumbosacral spine History of section History of tonsillectomy History of hysterectomy Family History Father No problems noted. Mother History of heart attack Maternal Grandfather Unknown family medical history Maternal Grandmother No problems noted. Paternal Grandfather History of heart attack Paternal Grandmother Alzheimer's disease Brother No problems noted. Sister No problems noted. Sister No problems noted. Son No problems noted. Daughter No problems noted. 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 26234 - PHQ-9 Billing: Patient declined-do not bill Source: Developed by Drs. Andrea Vargas, Mary Mccallum, Johan Lamb and colleagues, with an educational fransico from [email or web address] Thrive Questionnaire Date Thrive assessed: 06/13/24 I am a: Patient What is your living situation today?: I have a steady place to live Within the past 12 months, did the food you bought not last and you didn't have the money to get more?: Never true Within the past 12 months, did you worry whether your food would run out before you got money to buy more?: Never true Do you have trouble paying for medicines?: No Do you have trouble getting transportation to medical appointments?: No Do you have trouble paying your heating and electricity bill?: Yes Do you have trouble taking care of your child, family member or friend?: No Do you have trouble with day-to-day activities such as bathing, preparing meals, shopping, managing finances, etc.?: No Are you currently unemployed and looking for a job?: Yes Are you interested in more education?: Yes Please select the resources that you would like help with: Utilities Currently or been in a relationship where the following occur: No concerns reported THRIVE Score: 1 AUDIT C Alcohol Use Questionnaire (AUDIT-C) 3. How often do you have six or more drinks on one occasion?: Never Total Score: 0 JOCY-7 AMB Questionnaire JOCY-7 Date JOCY - 7 assessed: 06/13/24 Source: Developed by Drs. Andrea Vargas, Mary Mccallum, Johan Lamb and colleagues, with an educational fransico from [email or web address] Physical exam (Primary Care) Vital Signs: Last Vital Signs Pulse 74 07/09/24 12:27 BP 106/68 07/09/24 12:27 Pulse Ox 96 07/09/24 12:27 Oxygen Delivery Method Room Air 07/09/24 12:27 BMI result Body Mass Index 19.7 Tobacco/Smoking Status: Tobacco use Status Tobacco use date assessed 07/09/24 07/09/24 12:32 Patient Tobacco Use Status Former Tobacco user 07/09/24 12:32 e-Cigarette/Vaping Use Never Used 07/09/24 12:32 Thrive Assessment: Date of Thrive Assessment Date Thrive assessed 06/13/24 07/09/24 12:32 Currently or been in a relationship where the following occur: No concerns reported Coding Level of Care Code Est Pt Level 4 (73779) Est Pt Prev Care 40-64y(67735) Diagnoses Encounter for general adult medical examination with abnormal findings Z00.01 Iron deficiency anemia due to chronic blood loss D50.0 Anemia type: iron deficiency Iron deficiency anemia type: chronic blood loss Immunization deficiency Z28.39 Screen for STD (sexually transmitted disease) Z11.3 Anxiety, generalized F41.1 Assessment & Plan Assessment & Plan (1) Encounter for general adult medical examination with abnormal findings: Code(s): Z00.01 - Encounter for general adult medical examination with abnormal findings Category: Medical (2) Anemia: Code(s): D64.9 - Anemia, unspecified Category: Medical Qualifiers: Anemia type: iron deficiency Iron deficiency anemia type: chronic blood loss Qualified Code(s): D50.0 - Iron deficiency anemia secondary to blood loss (chronic) (3) Immunization deficiency: Code(s): Z28.39 - Other underimmunization status Category: Medical (4) Screen for STD (sexually transmitted disease): Code(s): Z11.3 - Encounter for screening for infections with a predominantly sexual mode of transmission Category: Medical (5) Anxiety, generalized: Code(s): F41.1 - Generalized anxiety disorder Category: Medical Plan Physical exam appointment - The patient is a 59-year-old female presenting for a wellness examination and to discuss recent laboratory results. 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 - Noteworthy diagnoses include generalized anxiety disorder (Lexapro increased 20 mg), now seeing psychiatrist and therapist management through them vitamin deficiencies (B12 and D), and iron-deficiency anemia. - Previous colonoscopy following an episode of internal bleeding, conducted last year while inpatient but cannot recall specific details about the performing team. - Significant past medical history includes heavy menstrual bleeding attributed to fibroids, deemed benign. History of total hysterectomy as per patient Medications - Lexapro 20 mg daily for generalized anxiety disorder through Psychiatry - Hydroxyzine for anxiety management, dosage unspecified through Psychiatry - Pantoprazole for management of gastroesophageal reflux disease, prescribed by bariatric surgeon - Lidocaine cream, prescribed by Dr. Casas for unspecified indications Problem List - Generalized Anxiety Disorder - Vitamin D Deficiency - Iron-Deficiency Anemia - Vitamin B12 Deficiency - Gastroesophageal Reflux Disease - intentional Weight Loss - History of Heavy Menstrual Bleeding Due to Fibroids, history of total hysterectomy Diagnostic results - Labs: Hemoglobin 10.1, Hematocrit 30.3, White Blood Cell Count 3.7, Red Blood Cell Count 3.5, B12 level 336, Glucose 135 (non-fasting), Creatinine 0.43, Glomerular Filtration Rate 114, Calcium 8.2, AST 15, ALT 16, Alkaline Phosphatase 70.4, Albumin 3.5, Total Bilirubin 0.4, Vitamin D low, Iron low. - A1c: 5.5 Paperwork for job filled, order placed to monitor communicable disease , and STD as per chart requirement Orders: Orders Hepatitis C Antibody Today D50.0 - Iron deficiency anemia secondary to blood loss (chronic), Z11.3 - Encounter for screening for infections with a predominantly sexual mode of transmission, Z28.39 - Other underimmunization status Syphilis Screen Today D50.0 - Iron deficiency anemia secondary to blood loss (chronic), Z11.3 - Encounter for screening for infections with a predominantly sexual mode of transmission, Z28.39 - Other underimmunization status Varicella IgG Antibody Today D50.0 - Iron deficiency anemia secondary to blood loss (chronic), Z11.3 - Encounter for screening for infections with a predominantly sexual mode of transmission, Z28.39 - Other underimmunization status Herpes Simplex Virus Ab IgG Today D50.0 - Iron deficiency anemia secondary to blood loss (chronic), Z11.3 - Encounter for screening for infections with a predominantly sexual mode of transmission, Z28.39 - Other underimmunization status Hemoglobin Today D50.0 - Iron deficiency anemia secondary to blood loss (chronic), Z11.3 - Encounter for screening for infections with a predominantly sexual mode of transmission, Z28.39 - Other underimmunization status Hepatitis B Surface Antibody Today D50.0 - Iron deficiency anemia secondary to blood loss (chronic), Z11.3 - Encounter for screening for infections with a predominantly sexual mode of transmission, Z28.39 - Other underimmunization status HIV Ab/Ag Today D50.0 - Iron deficiency anemia secondary to blood loss (chronic), Z11.3 - Encounter for screening for infections with a predominantly sexual mode of transmission, Z28.39 - Other underimmunization status Rubeola IgG (Measles) Today D50.0 - Iron deficiency anemia secondary to blood loss (chronic), Z11.3 - Encounter for screening for infections with a predominantly sexual mode of transmission, Z28.39 - Other underimmunization status Rubella IgG Antibody Today D50.0 - Iron deficiency anemia secondary to blood loss (chronic), Z11.3 - Encounter for screening for infections with a predominantly sexual mode of transmission, Z28.39 - Other underimmunization status Mumps Virus IgG Antibody Today D50.0 - Iron deficiency anemia secondary to blood loss (chronic), Z11.3 - Encounter for screening for infections with a predominantly sexual mode of transmission, Z28.39 - Other underimmunization status Tetanus Antitoxiod Antibody Today D50.0 - Iron deficiency anemia secondary to blood loss (chronic), Z11.3 - Encounter for screening for infections with a predominantly sexual mode of transmission, Z28.39 - Other underimmunization status Ferritin Today D50.0 - Iron deficiency anemia secondary to blood loss (chronic), Z11.3 - Encounter for screening for infections with a predominantly sexual mode of transmission, Z28.39 - Other underimmunization status Hematocrit Today D50.0 - Iron deficiency anemia secondary to blood loss (chronic), Z11.3 - Encounter for screening for infections with a predominantly sexual mode of transmission, Z28.39 - Other underimmunization status
--- OUTSIDE RECORDS SUMMARY | 2024-07-09 14:19 | XMS_ITS | Encounter Summary ---
Author Organization [facility] Address [address] [place] [address] Care Team Providers Care Household Appliances Service Technician Name Role Phone Antonia Sanchez MD Primary Care Provider [phone] Reason for Visit * Episode Based Medications (Routine) - Authorized Specialty Diagnoses / Procedures Referred By Contblake t Referred To Contact Diagnoses Chronic ITP (idiopathic thrombocytopenia) (CMS/HCC) Bari Cordon MD [address] [place] [address] Phone: tel: fax: [address] [phone] Phone: tel: fax: Referral ID Status Reason Start Date Expiration Date V isits Requested Visits Authorized [id number] Authorized 01/21/2024 01/20/2025 1 13 Encounter Details Date Type Department Care Team (Latest Contact Info) Description 07/04/2024 7:52 AM EDT - 07/04/2024 11:59 PM EDT Hospital Encounter [address] [phone] Bari Cordon MD [address] [place] [address] Chronic ITP (idiopathic thrombocytopenia) (CMS/HCC) (Primary Dx) Discharge Disposition: Home or Self Care Social [...] Sign Reading Time Taken Comments Blood Pressure 102/70 07/04/2024 8:06 AM EDT Pulse 75 07/04/2024 8:06 AM EDT Temperature 37.2 ??C (98.9 ??F) 07/04/2024 8:06 AM ED T Respiratory Rate - - Oxygen Saturation 99% 07/04/2024 8:06 AM EDT Inhaled Oxygen Concentration - - Weight 53.4 kg (117 lb 12.8 oz) 07/04/2024 8:06 AM EDT Height - - Body Mass Index 19.6 05/30/2024 6:57 AM EST documented in this encounter Medications at Time of Discharge hydrOXYzine HCL (ATARAX) 10 mg tablet Take 1 tablet (10 mg total) by mouth 1 (one) time each day. 04/04/2024 pantoprazole (PROTONIX) 40 mg EC tablet Take 1 tablet (40 mg total) by mouth 1 (one) time each day before breakfast. Do not crush, chew, or split. 30 each 2 06/06/2024 09/04/2024 documented as of this encounter Discharge Disposition Disposition Code Departure Means Destination Home or Self Care documented in this encounter Progress Notes * Rafaela Martinez RN - 07/04/2024 8:00 AM EDT Pt arrives today for IVIG infusion. Pt reports she has been feeling ok just tired. Pt reports continues to lose weight. Pt seeing pcp and requested labs be drawn today. Medications, allergies, and assessment reviewed.RIGHT upper chest port accessed per protocol. Positive blood return noted. Labs drawn and sent. Pre meds given 0915 IVIG infusing over 5 steps starting out at 0.5ml/kg/hr. pt tolerating well. 1030 Pt resting in chair on phone. Call dickinson in reach. 1155 Infusion complete. Pt tolerated well. PIV removed without incident. Appointment made for next treatment in 4 weeks as per md note. Stable at discharge. documented in this encounter Plan of Treatment Upcoming Encounters Date Type Department Care Team (Late st Contact Info) Description 07/10/2024 8:00 AM EDT Nutrition Bariatric Surgery - [place] [address] [phone] [address] 08/01/2024 8:00 AM EDT Appointment [facility] [address] [facility] [address] [place] [phone] 08/05/2024 8:00 AM EDT Office Visit Bariatric Surgery - [place] [address] [phone] Galindo Lay MD [address] [address] 09/09/2024 8:30 AM EDT Office Visit [facility] Hematology Oncology [address] [place] [phone] Bari Cordon MD [address] [place] [address] documented as of this encounter Procedures Procedure Name Priority Date/Time Associated Diagnosis Comments CBC WITH AUTO DIFFERENTIAL Routine 07/04/2024 8:47 AM EDT Chronic ITP (idiopathic thrombocytopenia) (CMS/HCC) CBC AND DIFFERENTIAL Routine 07/04/2024 8:47 AM EDT Chronic ITP (idiopathic thrombocytopenia) (CMS/HCC) documented in this encounter Results * (ABNORMAL) CBC auto differential (07/04/2024 8:47 AM EDT) WBC 3.7(L) 4.8 - 10.8 K/mcL LAB HEMETOLOGY METHOD 07/04/2024 10:46 AM [facility] RBC 3.50(L) 3.80 - 4.80 M/mcL LAB HEMETOLOGY [facility] Hemoglobin 10.1(L) 11.5 - 16.0 g/dL LAB HEMETOLOGY METHOD 07/04/2024 10:46 AM [facility] Hematocrit 30.3(L) 35.0 - 47.0 % LAB HEMETOLOGY METHOD 07/04/2024 10:46 AM [facility] MCV 85.8 79.0 - 98.0 FL LAB HEMETOLOGY METHOD 07/04/2024 10:46 AM [facility] MCH 28.6 27.0 - 32.0 pcg LAB HEMETOLOGY METHOD 07/04/2024 10:46 AM [facility] MCHC 33.3 32.0 - 37.0 g/dL LAB HEMETOLOGY METHOD 07/04/2024 10:46 AM [facility] RDW 13.1 11.0 - 15.0 % LAB HEMETOLOGY METHOD 07/04/2024 10:46 AM [facility] Platelets 97(L) 130 - 400 K/mcL LAB HEMETOLOGY METHOD 07/04/2024 10:46 AM [facility] Comment:previously verified by slide MPV 11.9(H) 7.0 - 11.0 FL LAB HEMETOLOGY METHOD 07/04/2024 10:46 AM [facility] NRBC 0.0 <1.0 % LAB HEMETOLOGY METHOD 07/04/2024 10:46 AM [facility] NRBC Absolute 0.00 <0.10 K/mcL LAB HEMETOLOGY METHOD 07/04/2024 10:46 AM [facility] Neutrophils Relative 64.4 % LAB HEMETOLOGY METHOD 07/04/2024 10:46 AM [facility] Lymphocytes Relative 25.4 % LAB HEMETOLOGY METHOD 07/04/2024 10:46 AM [facility] Monocytes Relative 7.5 % LAB HEMETOLOGY METHOD 07/04/2024 10:46 AM [facility] Eosinophils Relative 0.8 % LAB HEMETOLOGY METHOD 07/04/2024 10:46 AM [facility] Basophils Relative 1.6 % LAB HEMETOLOGY METHOD 07/04/2024 10:46 AM [facility] Immature Granulocytes Relative 0.3 % LAB HEMETOLOGY METHOD 07/04/2024 10:46 AM [facility] Neutrophils Absolute 2.41 1.50 - 7.00 K/mcL LAB HEMETOLOGY METHOD 07/04/2024 10:46 AM [facility] Lymphocytes Absolute 0.95(L) 1.00 - 5.00 K/mcL LAB HEMETOLOGY METHOD 07/04/2024 10:46 AM [facility] Monocytes Absolute 0.28 0.20 - 1.00 K/mcL LAB HEMETOLOGY METHOD 07/04/2024 10:46 AM [facility] Eosinophils Absolute 0.03 0.00 - 0.50 K/mcL LAB HEMETOLOGY METHOD 07/04/2024 10:46 AM [facility] Basophils Absolute 0.06 0.00 - 0.20 K/mcL LAB HEMETOLOGY METHOD 07/04/2024 10:46 AM [facility] Immature Granulocytes Absolute 0.01 0.00 - 0.03 K/mcL LAB HEMETOLOGY METHOD 07/04/2024 10:46 AM EDT [facility] Blood Blood sample taken from central line / Unknown Existing Catheter / Unknown 07/04/2024 8:47 AM EDT 07/04/2024 9:18 AM EDT Bari Cordon MD LAB BLOOD ORDERABLES Final R esult [facility] [address] [place] [address], [place] [phone] documented in this encounter Visit Diagnoses Diagnosis Chronic ITP (idiopathic thrombocytopenia) (CMS/HCC)- Primary documented in this encounter Administered Medications Inactive Administered Medications - up to 3 most recent administrations Medication Order MAR Action Action Date Dose Rate Site acetaminophen (TYLENOL) tablet 650 mg 650 mg, oral, Once, On Sun07/04/24 at 0830, For 1 doseIndications:Chronic ITP (idiopathic thrombocytopenia) (CMS/HCC) Given 07/04/2024 8:23 AM EDT 650 mg diphenhydrAMINE (BENADRYL) capsule 25 mg 25 mg, oral, Once, On Sun07/04/24 at 0830, For 1 doseIndications:Chronic ITP (idiopathic thrombocytopenia) (CMS/HCC) Given 07/04/2024 8:23 AM EDT 25 mg immune globulin (human) (GAMMAGARD) 10 % infusion 30 g 30 g, intravenous, Once, On Sun07/04/24 at 0830, For 1 dose, Administer per institutional standards., Preferred Brand: No PreferenceIndications:Chronic ITP (idiopathic thrombocytopenia) (CMS/HCC) New Bag 07/04/2024 9:09 AM EDT 30 g documented in this encounter Orders Nursing Count Last Ordered Date First Orde red Date ONC NURSING COMMUNICATION 5 07/04/2024 Appointment Requests Count Last Ordered Date Fi rst Ordered Date ONCBCN INFUSION APPOINTMENT REQUEST 08 documented in this encounter Care Teams Household Appliances Service Technician Relationship Specialty Start Date End Date Antonia Sanchez MD [address] [place] [phone] PCP - General Internal Medicine 02/08/15 documented as of this encounter
--- OUTSIDE RECORDS SUMMARY | 2024-07-09 14:19 | XMS_ITS | Encounter Summary ---
Author Organization [facility] [place] [address] Care Team Providers Care County Bailiff Name Role Phone Antonia Sanchez MD Primary Care Provider Encounter Details Date Type Department Care Team (Latest Contact Info) Description 07/04/[address] [facility] - Main Lab 299 [facility] [place] [address] Antonia Sanchez MD [address] [place] [phone] Immune thrombocytopenic purpura (CMS/HCC); Personal history of other endocrine, nutritional and metabolic disease Social History Tobacco Use Types Packs/Day Years [...] AM EST documented as of this encounter Plan of Treatment Upcoming Encounters Date Type Department Care Team (Late st Contact Info) Description 07/10/2024 8:00 AM EDT Nutrition Bariatric Surgery - [place] 175 [facility] [address] [place] [phone] Ligia Banks, RD [address] [address] 08/01/2024 8:00 AM EDT Appointment [facility] 271 [facility] 2nd [place] [phone] 08/05/2024 8:00 AM EDT Office Visit Bariatric Surgery - [place] [address] [phone] Galindo Lay MD [address] [address] 09/09/2024 8:30 AM EDT Office Visit [facility] Hematology Oncology [address] [place] [phone] Bari Cordon MD [address] [place] [address] documented as of this encounter Procedures Procedure Name Priority Date/Time Associated Diagnosis Comments THYROID STIMULATING HORMONE WITH REFLEX TO FREE T4 AND FREE T3 Routine 07/04/2024 8:47 AM EDT Immune thrombocytopenic purpura (CMS/HCC) Personal history of other endocrine, nutritional and metabolic disease SST - GOLD Routine 07/04/2024 8:47 AM EDT Immune thrombocytopenic purpura (CMS/HCC) Personal history of other endocrine, nutritional and metabolic disease VITAMIN D 25 HYDROXY Routine 07/04/2024 8:47 AM EDT Immune thrombocytopenic purpura (CMS/HCC) Personal history of other endocrine, nutritional and metabolic disease VITAMIN B12 Routine 07/04/2024 8:47 AM EDT Immune thrombocytopenic purpura (CMS/HCC) Personal history of other endocrine, nutritional and metabolic disease COMPREHENSIVE METABOLIC PANEL Routine 07/04/2024 8:47 AM EDT Immune thrombocytopenic purpura (CMS/HCC) Personal history of other endocrine, nutritional and metabolic disease documented in this encounter Results * SST tube (07/04/2024 8:47 AM EDT) [facility] Extra Tube Hold for add-ons. 07/04/2024 12:01 PM EDT [facility] Comment:Auto resulted. Blood Venous blood specimen / Unknown 07/04/2024 8:47 AM EDT 07/04/2024 10:19 AM EDT us Antonia Sanchez MD LAB BLOOD ORDERABLES Final Resul t [facility] [address] [place] [address], [place] [phone] * (ABNORMAL) Comprehensive metabolic panel (07/04/2024 8:47 AM EDT) [facility] Sodium 138 133 - 145 mmol/L LAB CHEMISTRY METHOD 07/04/2024 12:[address] [facility] Potassium 3.9 3.5 - 5.5 mmol/L LAB CHEMISTRY METHOD 07/04/2024 12:[address] [facility] Chloride 105 96 - 110 mmol/L LAB CHEMISTRY METHOD 07/04/2024 12:[address] [facility] CO2 29 21 - 32 mmol/L LAB CHEMISTRY METHOD 07/04/2024 12:[address] [facility] Anion Gap 4 3 - 11 LAB CHEMISTRY METHOD 07/04/2024 12:[address] [facility] Glucose 135(H) 70 - 100 mg/dL LAB CHEMISTRY METHOD 07/04/2024 12:[address] [facility] BUN 9 5 - 25 mg/dL LAB CHEMISTRY METHOD 07/04/2024 12:[address] [facility] Creatinine 0.43(L) 0.50 - 1.10 mg/dL LAB CHEMISTRY METHOD 07/04/2024 12:[address] [facility] eGFR 114 >=60 mL/min/1. 73m2 LAB CHEMISTRY METHOD 07/04/2024 12:[address] [facility] Comment:Calculation based on the??Chronic Kidney Disease Epidemiology Collaboration (CKD-EPI) equation refit??without adjustment for race. BUN/Creatinine Ratio 20.9 LAB CHEMISTRY METHOD 07/04/2024 12:[address] [facility] Calcium 8.2(L) 8.5 - 10.5 mg/dL LAB CHEMISTRY METHOD 07/04/2024 12:[address] [facility] AST (SGOT) 15 10 - 42 unit/L LAB CHEMISTRY METHOD 07/04/2024 12:[address] [facility] ALT (SGPT) 16 10 - 60 unit/L LAB CHEMISTRY METHOD 07/04/2024 12:[address] [facility] Alkaline Phosphatase 74 42 - 121 unit/L LAB CHEMISTRY METHOD 07/04/2024 12:[address] [facility] Total Protein 6.3 6.0 - 8.0 g/dL LAB CHEMISTRY METHOD 07/04/2024 12:[address] [facility] Albumin 3.5 3.2 - 5.0 g/dL LAB CHEMISTRY METHOD 07/04/2024 12:[address] [facility] Total Bilirubin 0.4 0.0 - 1.4 mg/dL LAB CHEMISTRY METHOD 07/04/2024 12:[address] [facility] Blood Venous blood specimen / Unknown 07/04/2024 8:47 AM EDT 07/04/2024 10:18 AM EDT us Antonia Sanchez MD LAB BLOOD ORDERABLES Final Resul t [facility] [address] [place] [address], * (ABNORMAL) Vitamin D 25 hydroxy (07/04/2024 8:47 AM EDT) [facility] Vit D, 25-Hydroxy 24.8(L) 30.0 - 80.0 ng/mL LAB CHEMISTRY METHOD 07/04/2024 1:19 PM EDT [facility] Blood Venous blood specimen / Unknown 07/04/2024 8:47 AM EDT 07/04/2024 10:18 AM EDT us Antonia Sanchez MD LAB BLOOD ORDERABLES Final Resul t [facility] [address] [place] [address], [place] [phone] * Vitamin B12 (07/04/2024 8:47 AM EDT) [facility] Vitamin B-12 336 250 - 900 pcg/mL LAB CHEMISTRY METHOD 07/04/2024 12:26 PM EDT [facility] Blood Venous blood specimen / Unknown 07/04/2024 8:47 AM EDT 07/04/2024 10:18 AM EDT us Antonia Sanchez MD LAB BLOOD ORDERABLES Final Resul t [facility] [address] [place] [address], [place] [phone] * Thyroid stimulating hormone with reflex to free t4 and free t3 (07/04/2024 8:47 AM EDT) [facility] TSH 0.43 0.40 - 4.00 mcIU/mL LAB CHEMISTRY METHOD 07/04/2024 1:19 PM EDT [facility] Blood Venous blood specimen / Unknown 07/04/2024 8:47 AM EDT 07/04/2024 10:18 AM EDT us Antonia Sanchez MD LAB BLOOD ORDERABLES Final Resul t [facility] [address] [place] [address], documented in this encounter Visit Diagnoses Diagnosis Immune thrombocytopenic purpura (CMS/HCC) Immune thrombocytopenic purpura Personal history of other endocrine, nutritional and metabolic disease documented in this encounter Care Teams County Bailiff Relationship Specialty Start Date End Date Antonia Sanchez MD [address] [facility] [address] PCP - General Internal Medicine 02/08/15 documented as of this encounter
--- OUTSIDE RECORDS SUMMARY | 2024-07-09 14:19 | XMS_ITS | Clinical Summary ---
Author Organization [facility] Address [address] [place] [address] Phone Care Team Providers Care Laundry Supervisor Name Role Phone Antonia Sanchez MD Primary Care Provider [phone] Allergies Active Allergy Reactions Criticality Noted Date Comments Tyloxapol 01/29/2019 Medications hydrOXYzine HCL (ATARAX) 10 mg tablet Take 1 tablet (10 mg total) by mouth 1 (one) time each day. 04/04/2024 Active pantoprazole (PROTONIX) 40 mg EC tablet Take 1 tablet (40 mg total) by mouth 1 (one) time each day before breakfast. Do not crush, chew, or split. 30 each 2 06/06/2024 Active Active Problems Problem Noted Date Diagnosed Date Chronic ITP (idiopathic thrombocytopenia) 2022 Encounters Date Type Department Care Team Description 07/04/2024 7:52 AM EDT - 07/04/2024 11:59 PM EDT Hospital Encounter [facility] [address] [phone] Bari Cordon MD Chronic ITP (idiopathic thrombocytopenia) (CMS/HCC) (Primary Dx) Discharge Disposition: Home or Self Care 07/04/2024 Lab Requisition [facility] - Main Lab 299 [facility] [place] [address] Antonia Sanchez MD Immune thrombocytopenic purpura (CMS/HCC); Personal history of other endocrine, nutritional and metabolic disease 06/04/2024 7:44 AM EST - 06/04/2024 11:59 PM EST Hospital Encounter [facility] [address] [place] [phone] Bari Cordon MD Chronic ITP (idiopathic thrombocytopenia) (CMS/HCC) (Primary Dx); Purpura, thrombocytopenic, idiopathic (CMS/HCC) Discharge Disposition: Home or Self Care 06/04/2024 Telephone Bariatric Surgery [address] [phone] Galindo Lay MD Medication Problem (Pantoprazole) 05/30/2024 6:38 AM EST - 05/30/2024 11:59 PM EST Hospital Encounter [facility] Interventional Radiology [address] [place] [phone] Chronic ITP (idiopathic thrombocytopenia) (CMS/HCC) Discharge Disposition: Home or Self Care 05/28/2024 Telephone Bariatric Surgery - [address] [phone] Galindo Lay MD Med Refill (Pantoprazole) 05/16/2024 Telephone [facility] Hematology Oncology [address] [place] [phone] Nancy Mata [place] Port Placement appt 05/13/2024 9:00 AM EST Office Visit [facility] Hematology Oncology [address] [place] [phone] Bari Cordon MD Chronic ITP (idiopathic thrombocytopenia) (CMS/HCC) (Primary Dx) 05/06/2024 8:00 AM EST - 05/06/2024 11:59 PM EST Hospital Encounter [facility] [address] [place] [phone] Bari Cordon MD Chronic ITP (idiopathic thrombocytopenia) (CMS/HCC) (Primary Dx) Discharge Disposition: Home or Self Care from Last 3 Months Surgical History Surgery Date Site/Laterality Comments TUBAL LIGATION PROCEDURE: HISTORICAL TUBAL LIGATION TONSILLECTOMY PROCEDURE: HISTORICAL TONSILLECTOMY OTHER SURGICAL HISTORY 09/2003 PROCEDURE: OR ARTHRODESIS ANTERIOR SPINAL DFRM 4-7 VRT SGM; COMMENT: Dr. Luis SECTION PROCEDURE: HISTORICAL ; COMMENT: times 2 HYSTERECTOMY 2008 PROCEDURE: HISTORICAL HYSTERECTOMY; COMMENT: Bleeding MULTIPLE TOOTH EXTRACTIONS PROCEDURE: HISTORICAL DENTAL EXTRACTION ESOPHAGOGASTRODUODENOSCOPY 07/08/2021 PROCEDURE: OR ESOPHAGOGASTRODUODENOSCOPY TRANSORAL DIAGNOSTIC; COMMENT: esophagitis - recommend [...] overgrowth (SIBO) Idiopathic thrombocytopenic purpura (ITP) (CMS/HCC) 1939 DX:Idiopathic thrombocytopen ic purpura (ITP) (HCC);COMMENT:Has been [...] 07/04/2024 8:06 AM ED T Respiratory Rate 16 05/30/2024 10:0 6 AM EST Oxygen Saturation 99% 07/04/2024 8:06 AM EDT Inhaled Oxygen Concentration - - Weight 53.4 kg (117 lb 12.8 oz) 07/04/2024 8:06 AM EDT Height 165.1 cm (5' 5 ) 05/30/2024 6:57 AM EST Body Mass Index 19.6 05/30/2024 6:57 AM EST Plan of Treatment Upcoming Encounters Date Type Department Care Team (Late st Contact Info) Description 07/10/2024 8:00 AM EDT Nutrition Bariatric Surgery - [place] [address] [phone] Ligia Banks, VAMSI [address] [address] 08/01/2024 8:00 AM EDT Appointment [facility] 271 [facility] 2[address] [place] [phone] 08/05/2024 8:00 AM EDT Office Visit Bariatric Surgery - [place] [address] [phone] Galindo Lay MD [address] [address] 09/09/2024 8:30 AM EDT Office Visit [facility] Hematology Oncology [address] [place] [phone] Bari Cordon MD [address] [place] [address] Health Maintenance Due Date Last Done Comments Breast Cancer Screening 1965 Hepatitis B Vaccines (1 of 3 - [...] or Tdap) 04/17/2023 04/17/2013, 07/17/2011 COVID-19 Vaccine ( - 2023-2 5 season) 2023 08/25/2020, 07/26/2020 Influenza Vaccine (Season Ended) 2024 01/03/2019, 03/16/2011 HIB Vaccines Aged Out 04/17/2013, 04/17/2013 No longer eligible based on patient's age to complete this topic Pneumococcal Vaccine: Pediatrics (0 to 5 Years) and At-Risk Patients (6 to 64 Years) Aged Out 06/09/2013, 04/07/2013 No longer eligible based on patient's age to complete this topic HPV Vaccines Aged Out No longer eligi ble based on patient's age to complete this topic Hepatitis A Vaccines Aged Out No long er eligible based on patient's age to complete [...] this topic Medical Devices Implanted Type Area Pusher Operator Device Identifier Shelf Expiration Date Model / Serial / Lot Port Pwr Slim Poly 6f Evelyn Inte Attach - [id number] - [id number] Implanted:Qty: 1 on 05/30/2024 by Seven Tanner MD at [facility] Central/Courtney pheral Catheters and Ports Right: Chest Wall CR BARD [employer]IPHER[employer]ULAR [id number] 02/06/2025 [id number] / [id number] / [id number] Procedures Procedure Name Priority Date/Time Associated Diagnosis Comments SST - GOLD Routine 07/04/2024 8:47 AM EDT Immune thrombocytopenic purpura (CMS/HCC) Personal history of other endocrine, nutritional and metabolic disease HEMOGLOBIN A1C Routine 07/04/2024 8:47 AM EDT Personal history of nutritional deficiency Immune thrombocytopenic purpura (CMS/HCC) COMPREHENSIVE METABOLIC PANEL Routine 07/04/2024 8:47 AM EDT Immune thrombocytopenic purpura (CMS/HCC) Personal history of other endocrine, nutritional and metabolic disease VITAMIN D 25 HYDROXY Routine 07/04/2024 8:47 AM EDT Immune thrombocytopenic purpura (CMS/HCC) Personal history of other endocrine, nutritional and metabolic disease VITAMIN B12 Routine 07/04/2024 8:47 AM EDT Immune thrombocytopenic purpura (CMS/HCC) Personal history of other endocrine, nutritional and metabolic disease THYROID STIMULATING HORMONE WITH REFLEX TO FREE T4 AND FREE T3 Routine 07/04/2024 8:47 AM EDT Immune thrombocytopenic purpura (CMS/HCC) Personal history of other endocrine, nutritional and metabolic disease CBC WITH AUTO DIFFERENTIAL Routine 07/04/2024 8:47 AM EDT Chronic ITP (idiopathic thrombocytopenia) (CMS/HCC) CBC AND DIFFERENTIAL Routine 07/04/2024 8:47 AM EDT Chronic ITP (idiopathic thrombocytopenia) (CMS/HCC) COMPLETE BLOOD COUNT Routine 06/04/2024 8:49 AM [...] AM EST Chronic ITP (idiopathic thrombocytopenia) (CMS/HCC) from Last 3 Months Results * Thyroid stimulating hormone with reflex to free t4 and free t3 (07/04/2024 8:47 AM EDT) TSH 0.43 0.40 - 4.00 mcIU/mL LAB CHEMISTRY METHOD 07/04/2024 1:19 PM EDT [facility] Blood Venous blood specimen / Unknown 07/04/2024 8:47 AM EDT 07/04/2024 10:18 AM EDT us Antonia Sanchez MD LAB BLOOD ORDERABLES Final Resul t Performing Organization Address City/[facility]/ZIP Co de Phone Number [facility] [address] [place] [address], [place] [phone] * SST tube (07/04/2024 8:47 AM EDT) [facility] Extra Tube Hold for add-ons. 07/04/2024 12:01 PM EDT [facility] Comment:Auto resulted. Blood Venous blood specimen / Unknown 07/04/2024 8:47 AM EDT 07/04/2024 10:19 AM EDT us Antonia Sanchez MD LAB BLOOD ORDERABLES Final Resul t Performing Organization Address [facility]/ZIP Co de Phone Number [facility] [address] [place] [address], [place] [phone] * (ABNORMAL) CBC auto differential (07/04/2024 8:47 AM EDT) Only the most recent of2 resultswithin the time period is included. Pathologist [facility] WBC 3.7(L) 4.8 - 10.8 K/mcL LAB HEMETOLOGY METHOD 07/04/2024 10:46 AM EDT [facility] RBC 3.50(L) 3.80 - 4.80 M/[facility] LAB HEMETOLOGY METHOD 07/04/2024 10:46 AM EDT [facility] Hemoglobin 10.1(L) 11.5 - 16.0 g/dL LAB HEMETOLOGY METHOD 07/04/2024 10:46 AM EDT [facility] Hematocrit 30.3(L) 35.0 - 47.0 % LAB HEMETOLOGY METHOD 07/04/2024 10:46 AM [facility] MCV 85.8 79.0 - 98.0 FL LAB HEMETOLOGY METHOD 07/04/2024 10:46 AM [facility] MCH 28.6 27.0 - 32.0 pcg LAB HEMETOLOGY METHOD 07/04/2024 10:46 AM [facility] MCHC 33.3 32.0 - 37.0 g/dL LAB HEMETOLOGY METHOD 07/04/2024 10:46 AM [facility] RDW 13.1 11.0 - 15.0 % LAB HEMETOLOGY METHOD 07/04/2024 10:46 AM [facility] Platelets 97(L) 130 - 400 K/mcL LAB HEMETOLOGY METHOD 07/04/2024 10:46 AM [facility] Comment:previously verified by slide MPV 11.9(H) 7.0 - 11.0 FL LAB HEMETOLOGY METHOD 07/04/2024 10:46 AM [facility] NRBC 0.0 <1.0 % LAB HEMETOLOGY METHOD 07/04/2024 10:46 AM [facility] NRBC Absolute 0.00 <0.10 K/mcL LAB HEMETOLOGY METHOD 07/04/2024 10:46 AM [facility] Neutrophils Relative 64.4 % LAB HEMETOLOGY METHOD 07/04/2024 10:46 AM [facility] Lymphocytes Relative 25.4 % LAB HEMETOLOGY METHOD 07/04/2024 10:46 AM [facility] Monocytes Relative 7.5 % LAB HEMETOLOGY METHOD 07/04/2024 10:46 AM [facility] Eosinophils Relative 0.8 % LAB HEMETOLOGY METHOD 07/04/2024 10:46 AM [facility] Basophils Relative 1.6 % LAB HEMETOLOGY METHOD 07/04/2024 10:46 AM EDT [facility] Immature Granulocytes Relative 0.3 % LAB HEMETOLOGY METHOD 07/04/2024 10:46 AM EDT [facility] Neutrophils Absolute 2.41 1.50 - 7.00 K/mcL LAB HEMETOLOGY METHOD 07/04/2024 10:46 AM EDT [facility] Lymphocytes Absolute 0.95(L) 1.00 - 5.00 K/mcL LAB HEMETOLOGY METHOD 07/04/2024 10:46 AM EDT [facility] Monocytes Absolute 0.28 0.20 - 1.00 K/mcL LAB HEMETOLOGY METHOD 07/04/2024 10:46 AM EDT [facility] Eosinophils Absolute 0.03 0.00 - 0.50 K/mcL LAB HEMETOLOGY METHOD 07/04/2024 10:46 AM EDT [facility] Basophils Absolute 0.06 0.00 - 0.20 K/mcL LAB HEMETOLOGY METHOD 07/04/2024 10:46 AM EDT [facility] Immature Granulocytes Absolute 0.01 0.00 - 0.03 K/mcL LAB HEMETOLOGY METHOD [facility] Blood Blood sample taken from central line / Unknown Existing Catheter / Unknown 07/04/2024 8:47 AM EDT 07/04/2024 9:18 AM EDT us Bari Cordon MD LAB BLOOD ORDERABLES Final R esult [facility] [address] [place] [address], * (ABNORMAL) Vitamin D 25 hydroxy (07/04/2024 8:47 AM EDT) Vit D, 25-Hydroxy 24.8(L) 30.0 - 80.0 ng/mL LAB CHEMISTRY METHOD 07/04/2024 1:19 PM EDT [facility] Blood Venous blood specimen / Unknown 07/04/2024 8:47 AM EDT 07/04/2024 10:18 AM EDT us Antonia Sanchez MD LAB BLOOD ORDERABLES Final Resul t Performing Organization Address City/[facility] Co de Phone Number [facility] [address] [place] [address], [place] [phone] * Hemoglobin A1c (07/04/2024 8:47 AM EDT) Pathologist [facility] Hemoglobin A1C 5.5 <6.5 % LAB CHEMISTRY METHOD 07/04/2024 12:41 PM EDT [facility] Mean Bld Glu Estim. 111 mg/dL LAB CHEMISTRY METHOD 07/04/2024 12:41 PM EDT [facility] Blood Blood sample taken from central line / Unknown Existing Catheter / Unknown 07/04/2024 8:47 AM EDT 07/04/2024 9:18 AM EDT us Antonia Sanchez MD LAB BLOOD ORDERABLES Final Resul t Performing Organization Address [facility] de Phone Number [facility] [address] [place] [address], [place] [phone] * Vitamin B12 (07/04/2024 8:47 AM EDT) Vitamin B-12 336 250 - 900 pcg/mL LAB CHEMISTRY METHOD 07/04/2024 12:26 PM EDT [facility] Blood Venous blood specimen / Unknown 07/04/2024 8:47 AM EDT 07/04/2024 10:18 AM EDT us Antonia Sanchez MD LAB BLOOD ORDERABLES Final Resul t Performing Organization Address City/[facility] de Phone Number [facility] [address] [place] [address], * (ABNORMAL) Comprehensive metabolic panel (07/04/2024 8:47 AM EDT) Only the most recent of2 resultswithin the time period is included. Sodium 138 133 - 145 mmol/L LAB CHEMISTRY METHOD 07/04/2024 12:26 PM [facility] Potassium 3.9 3.5 - 5.5 mmol/L LAB CHEMISTRY METHOD 07/04/2024 12:26 PM [facility] Chloride 105 96 - 110 mmol/L LAB CHEMISTRY METHOD 07/04/2024 12:26 PM [facility] CO2 29 21 - 32 mmol/L LAB CHEMISTRY METHOD 07/04/2024 12:26 PM [facility] Anion Gap 4 3 - 11 LAB CHEMISTRY METHOD 07/04/2024 12:26 PM [facility] Glucose 135(H) 70 - 100 mg/dL LAB CHEMISTRY METHOD 07/04/2024 12:26 PM [facility] BUN 9 5 - 25 mg/dL LAB CHEMISTRY METHOD 07/04/2024 12:26 PM [facility] Creatinine 0.43(L) 0.50 - 1.10 mg/dL LAB CHEMISTRY METHOD 07/04[facility]24 [facility] eGFR 114 >=60 mL/min/1. 73m2 LAB CHEMISTRY METHOD 07/04/2024 12:26 PM [facility] Comment:Calculation based on the??Chronic Kidney Disease Epidemiology Collaboration (CKD-EPI) equation refit??without adjustment for race. BUN/Creatinine Ratio 20.9 LAB CHEMISTRY METHOD 07/04/2024 12:26 PM [facility] Calcium 8.2(L) 8.5 - 10.5 mg/dL LAB CHEMISTRY METHOD 07/04/2024 12:26 PM EDT [facility] AST (SGOT) 15 10 - 42 unit/L LAB CHEMISTRY METHOD 07/04/2024 12:26 PM EDT [facility] ALT (SGPT) 16 10 - 60 unit/L LAB CHEMISTRY METHOD 07/04/2024 12:26 PM EDT [facility] Alkaline Phosphatase 74 42 - 121 unit/L LAB CHEMISTRY METHOD 07/04/2024 12:26 PM EDT [facility] Total Protein 6.3 6.0 - 8.0 g/dL LAB CHEMISTRY METHOD 07/04/2024 12:26 PM T [facility] Albumin 3.5 3.2 - 5.0 g/dL LAB CHEMISTRY METHOD 07/04/2024 12:26 PM [facility] Total Bilirubin 0.4 0.0 - 1.4 mg/dL LAB CHEMISTRY METHOD 07/04/2024 12:26 PM EDT [facility] Blood Venous blood specimen / Unknown 07/04/2024 8:47 AM EDT 07/04/2024 10:18 AM EDT us Antonia Sanchez MD LAB BLOOD ORDERABLES Final Resul t [facility] [address] [place] [address], * (ABNORMAL) Complete blood count (06/04/2024 8:49 AM EST) WBC 3.8(L) 4.8 - 10.8 K/mcL LAB HEMETOLOGY METHOD 06/04/2024 9:30 AM EST [facility] RBC 3.60(L) 3.80 - 4.80 M/mcL LAB HEMETOLOGY METHOD 06/04/2024 9:30 AM EST [facility] Hemoglobin 10.4(L) 11.5 - 16.0 g/dL LAB HEMETOLOGY METHOD 06/04/2024 9:30 AM [facility] Hematocrit 31.8(L) 35.0 - 47.0 % LAB HEMETOLOGY METHOD 06/04/2024 9:30 AM [facility] MCV 88.6 79.0 - 98.0 FL LAB HEMETOLOGY METHOD 06/04/2024 9:30 AM [facility] MCH 29.0 27.0 - 32.0 pcg LAB HEMETOLOGY METHOD 06/04/2024 9:30 AM [facility] MCHC 32.7 32.0 - 37.0 g/dL LAB HEMETOLOGY METHOD 06/04/2024 9:30 AM [facility] RDW 12.9 11.0 - 15.0 % LAB HEMETOLOGY METHOD 06/04/2024 9:30 AM [facility] Platelets 80(L) 130 - 400 K/mcL LAB HEMETOLOGY METHOD 06/04/2024 9:30 AM [facility] Comment:previously verified by slide MPV 12.0(H) 7.0 - 11.0 FL LAB HEMETOLOGY METHOD 06/04/2024 9:30 AM [facility] NRBC 0.0 <1.0 % LAB HEMETOLOGY METHOD 06/04/2024 9:30 AM [facility] NRBC Absolute 0.00 <0.10 K/mcL LAB HEMETOLOGY METHOD 06/04/2024 9:30 AM [facility] Blood Blood sample taken from central line / Unknown Existing Catheter / Unknown 06/04/2024 8:49 AM EST 06/04/2024 9:07 AM EST us Bari Cordon MD LAB BLOOD ORDERABLES Final R esult [facility] [address] [place] [address], * IR Insert Tunneled CVAD w Subq [...] Signed Date: 05/30/2024 14:46 ET Workstation ID: [id number] Transcribed By: Self Edit Transcribed Date: 05/30/2024 [...] and placed within the pocket. An 8 Kosovan peel-away sheath with a hemostatic valve placed [...] Signed Date: 05/30/2024 14:46 ET Workstation ID: [id number] Transcribed By: Self Edit Transcribed Date: 05/30/2024 14:46 ET Bari Cordon MD IMG IR PROCEDURES Final Resu lt * Miscellaneous reference lab test (05/13/2024) Only the most recent of2 resultswithin the time period is included. us Provider Onbase LAB BLOOD ORDERABLES Final Re sult from Last 3 Months Insurance [employer] Care Teams Laundry Supervisor Relationship Specialty Start Date End Date Antonia Sanchez MD [address] [place] [address] PCP - General Internal Medicine 02/08/15
--- OUTSIDE RECORDS SUMMARY | 2024-07-09 14:19 | XMS_ITS | Encounter Summary ---
Author Organization [facility] [place] [address] Care Team Providers Care Seo Engineer Name Role Phone Antonia Sanchez MD Primary Care Provider [phone] Encounter Details Date Type Department Care Team (Late st Contact Info) Description 01/09/2024 9:34 AM EDT Hospital Encounter TH HISTORIC ENCOUNTERS EASTERN CONVERSION ONLY Bari Cordon MD [address] [place] [address] Social History Tobacco Use Types Packs/Day Years [...] 8:00 AM EDT Nutrition Bariatric Surgery - [place] [address] [phone] Ligia Banks, RD [address] [address] 08/01/2024 8:00 AM EDT Appointment [facility] Infusion Center 271 [facility] 2nd [place] [phone] 08/05/2024 8:00 AM EDT Office Visit Bariatric Surgery [facility] [address] [phone] Galindo Lay MD [address] [address] 09/09/2024 8:30 AM EDT Office Visit [facility] Hematology Oncology [address] [place] [phone] Bari Cordon MD [address] [place] [address] documented as of this encounter Visit Diagnoses Not on filedocumented in this encounter Additional Health Concerns Infection Onset Date Last Indicated Resolved Time Respiratory Rule-Out 03/27/2024 03/27/20242 024 10:28 PM EST COVID-19 Rule-Out 03/27/2024 03/27/2024 03/27/2024 10:28 PM EST Gastrointestinal Rule-Out 03/27/2024 03/27/2024 1:28 AM EST C. Diff Rule-Out Infection 03/27/2024 03/27/2024 1 05/29/2023 12:43 AM EST documented as of this encounter Care Teams Seo Engineer Relationship Specialty Start Date End Date Antonia Sanchez MD [address] [place] [address] PCP - General Internal Medicine 02/08/15 documented as of this encounter
--- OUTSIDE RECORDS SUMMARY | 2024-07-09 14:19 | XMS_ITS | Clinical Summary ---
Author Organization [facility] Address [address] [place] [address] Care Team Providers Care Correctional Nurse Name Role Phone Antonia Sanchez MD Primary Care Provider [phone] Allergies Active Allergy Reactions Criticality Noted Date [...] age to complete this topic Care Teams Correctional Nurse Relationship Specialty Start Date End Date Antonia Sanchez MD [address] [place] [address] PCP - General Internal Medicine 01/17/23
--- OUTSIDE RECORDS SUMMARY | 2024-07-09 14:19 | XMS_ITS | Encounter Summary ---
Author Organization [facility] [place] [address] Care Team Providers Care Kettle Skimmer Name Role Phone Antonia Sanchez MD Primary Care Provider [phone] Reason for Visit * Reason Onset Date Comments Medication Problem 06/04/2024 Pantoprazole Encounter Details Date Type Department Care Team ([facility] st Contact Info) Description 06/04/2024 Telephone Bariatric Surgery - [place] 175 [facility] [address] [place] [phone] Galindo Lay MD 175 [facility] [address] [place] [address] Medication Problem (Pantoprazole) Social History Tobacco Use [...] 8:00 AM EDT Nutrition Bariatric Surgery - [place] [address] [phone] Ligia Bn[address] [address] 08/01/2024 8:00 AM EDT Appointment [facility] 271 [facility] 2nd [place] [phone] 08/05/2024 8:00 AM EDT Office Visit Bariatric Surgery [facility] [address] [phone] Galindo Lay MD [address] [address] 09/09/2024 8:30 AM EDT Office Visit [facility] Hematology Oncology [address] [place] [phone] Bari Cordon MD [address] [place] [address] documented as of this encounter Visit Diagnoses Not on filedocumented in this encounter Care Teams Kettle Skimmer Relationship Specialty Start Date End Date Antonia Sanchez MD [address] [place] [address] PCP - General Internal Medicine 02/08/15 documented as of this encounter
--- OUTSIDE RECORDS SUMMARY | 2024-07-09 14:19 | XMS_ITS | Encounter Summary ---
Author Organization [facility] [place] [address] Care Team Providers Care Digital Cartographer Name Role Phone Antonia Sanchez MD Primary Care Provider [phone] Encounter Details Date Type Department Care Team [...] 11:44 AM Encounter Date: 01/15/2024 Status: Signed Bureau Chief: Saima Alexander RN (Registered Nurse) Pt arrives [...] . Has a job interview today with [employer] which she is excited about. IV obtained [...] Description 07/10/2024 8:00 AM EDT Nutrition Bariatric [facility] 175 [facility] [address] [place] [phone] Ligia Banks, RD 175 [facility] [address] [place] [address] 08/01/2024 8:00 AM EDT Appointment [facility] Infusion Center 271 [facility] 2nd Floor [phone] 08/05/2024 8:00 AM EDT Office Visit Bariatric Surgery [facility] [address] [phone] Galindo Lay MD [address] [address] 09/09/2024 8:30 AM EDT Office Visit [facility] Hematology Oncology [address] [place] [phone] Bari Cordon MD [address] [place] [address] documented as of this encounter Visit Diagnoses [...] documented as of this encounter Care Teams Digital Cartographer Relationship Specialty Start Date End Date Antonia Sanchez MD [address] [place] [address] PCP - General Internal Medicine 02/08/15 documented as of this encounter
== END 2024-07-09 12:56 | disposition home or self-care (01) ==
LOC: HO.HMCC 11:46
PROVIDERS: PCP Internal Medicine; Visit Provider Internal Medicine
DX: Z00.01 Encounter for general adult medical examination with abnormal findings (principal); D50.0 Iron deficiency anemia secondary to blood loss (chronic); Z11.3 Encounter for screening for infections with a predominantly sexual mode of transmission; Z28.39 Other underimmunization status; F41.1 Generalized anxiety disorder

== ENCOUNTER 2025-04-08 12:44 | Outpatient (AMB) | payer OTHER, SELFPAY ==
--- OUTSIDE RECORDS SUMMARY | 2024-01-09 08:34 | XMS_ITS | Encounter Summary ---
Author Organization [facility] [place] [address] Care Team Providers Care Home Care Consultant Name Role Phone Antonia Sanchez MD Primary Care Provider [phone] Encounter Details Date Type Department Care Team (Late st Contact Info) Description 01/09/2024 9:34 AM EDT Hospital Encounter TH HISTORIC ENCOUNTERS EASTERN CONVERSION ONLY Bari Cordon MD [address] [place] [address] Social History Tobacco Use Types Packs/Day Years Used Date Smoking Tobacco: Former Cigarettes 2 Q uit: 04/09/2014 Smokeless Tobacco: Never Alcohol Use Standard Drinks/Week Comments No 0 (1 standard drink = 0.6 oz pur e alcohol) Comments Unknown Sex and Gender Information Value Date Recorded Sex Assigned at Female 05/06/2024 8:06 AM EST Legal Sex Female 1:17 AM EST Gender Identity Female 05/06/2024 8:06 AM EST Sexual Orientation Straight 05/06/2024 8: 06 AM EST documented as of this encounter Last Filed Vital Signs Vital Sign Reading Time Taken Comments Blood Pressure 105/60 01/09/2024 9:45 AM EDT Sitting Left arm Pulse 68 01/09/2024 9:45 AM EDT Temperature - - Respiratory Rate - - Oxygen Saturation - - Inhaled Oxygen Concentration - - Weight 66 kg (145 lb 6.4 oz) 01/09/2024 9:45 AM EDT Height 165.1 cm (5' 5 ) 02/02/2021 9:56 AM EDT Body Mass Index 24.2 10/09/2023 10:39 AM EDT documented in this encounter Progress Notes * Bari Cordon MD - 01/09/2024 9:45 AM EDT CHIEF COMPLAINT: Follow-up IDENTIFIER:Maryana Cannon is a 58 y.o. female. HPI: 58-year-old female who has chronic ITP, treated with different therapeutic regimen, currently patient has been on IVIG infusion with decent response but in few weeks after IVIG infusion patient become thrombocytopenic, as low as 50,000 but week after the infusion patient's platelet count more than 1 50,000 ROS: GENERAL: No anorexia, weight loss, fever, chills or night sweats but has been feeling moderately fatigued HEENT: no headache or any visual symptom NECK: No discomfort or lumps. RESPIRATORY: No significant cough or shortness of breath but sometimes gets short of breath on exertion CARDIOVASCULAR: No chest pain. GI: No abdominal discomfort, blood in stools or black stools MUSCULOSKELETAL: No joint pain or swelling, back pain, or muscle pain. HEMATOLOGY/LYMPHOLOGY No prolonged bleeding, but sometimes significant easy bruising EXT: no significant edema NEURO: denies any significant neurological complaint PAST MEDICAL HISTORY: Patient Active Problem List Diagnosis SNOMED CT(R) ??? Chronic ITP (idiopathic thrombocytopenia) ([facility]) CHRONIC IDIOPATHIC THROMBOCYTOPENIC PURPURA Past Medical History: Diagnosis Date ??? Hearing deficit, bilateral ??? Idiopathic thrombocytopenic purpura (ITP) ([facility]) 1940 Has been treated intermittently with prednisone and other meds. ??? S/P bariatric surgery 2014 SOCIAL HISTORY: Social History Tobacco Use ??? Smoking status: Former Packs/day: 2.00 Years: 40.00 Additional pack years: 0.00 Total pack years: 80.00 Types: Cigarettes Quit date: 2014 Years since quittin.7 ??? Smokeless tobacco: Never Substance Use Topics ??? Alcohol use: No Comment: Quit 12 years ago FAMILY HISTORY: Family History Problem Relation Age of Onset ??? Hypothyroidism Mother ??? Heart attack Mother ??? No Sig Med Hx Father ??? No Sig Med Hx Sister ??? No Sig Med Hx Brother ??? No Sig Med Hx Sister ??? Mental illness Daughter Family Status Relation Name Status ??? Mother Alive ??? Father Accidental ??? Sister Alive ??? Brother Alive ??? Sister Alive ??? Son Alive ??? Daughter Alive Current Outpatient Medications: ??? pantoprazole (PROTONIX) 40 MG tablet, Take 1 tablet (40 mg total) by mouth 2 (two) times a day.before meals UD, Disp: , Rfl: ??? sucralfate (CARAFATE) 1 g tablet, Take 1 tablet (1 g total) by mouth 4 (four) times a day., Disp: , Rfl: You are allergic to the following Date Reviewed: 01/09/2024 Allergen Reactions Tyloxapol Not Noted PHYSICAL EXAM: BP 105/60 (BP Location: Left arm) Pulse 68 Temp 98.8 ??F (37.1 ??C) (Temporal) Wt 66 kg (145 lb 6.4 oz) SpO2 100% BMI 24.20 kg/m?? ECOG 0 APPEARANCE: Alert and oriented in no acute distress EYES: nonicteric sclera slightly pink conjunctiva ORAL CAVITY: No erythema or exudates NECK: Neck supple, no significant adenopathy, HEART: normal S1 and S2 LUNG: clear to auscultation bilaterally LYMPH NODES: No palpable superficial adenopathy ABDOMEN: soft, nontender and no organomegaly appreciated EXTREMITIES: No petechiae or any significant ecchymosis LABS: WBC 4.4, hemoglobin 10.5 g, hematocrit 31.3%, MCV 85 and platelet count 54,000 (platelet count were1 82,002 weeks prior to this CBC) IMPRESSION: SNOMED CT(R) 1. Chronic ITP (idiopathic thrombocytopenia) ([facility]) CHRONIC IDIOPATHIC THROMBOCYTOPENIC PURPURA 58-year-old female, who has chronic ITP, has been on IVIG infusion now, treated with different therapeutic regimen in the past, including steroids, rituximab etc. with some response initially, since patient has been tolerating ITP without any issues and there is no major toxicity and thatholding her platelet count in decent range I will continue IVIG but if her platelet count dropped to less than 30,000 I may change therapeutic intervention Patient also has been complaining of chronic fatigue her hemoglobin is only 10.5 g so I will also do some anemia workup as well as check TSH PLAN: Continue IVIG for now but if platelet go less than 30,000 I will see her for some different therapeutic intervention I will do some anemia workup as well as check TSH etc. today Bari Cordon MD documented in this encounter Plan of Treatment Upcoming Encounters Date Type Department Care Team (Late st Contact Info) Description 04/15/2025 8:00 AM EST Appointment [facility] [address] [place] [phone] 06/11/2025 8:45 AM EST Office Visit [facility] Hematology Oncology [address] [place] [phone] Bari Cordon MD [address] [place] [address] 08/06/2025 9:45 AM EDT Office Visit Bariatric Surgery - [facility] [address] [place] [phone] Galindo Lay MD [address] [place] [phone] documented as of this encounter Visit Diagnoses Not on filedocumented in this encounter Additional Health Concerns Infection Onset Date Last Indicated Resolved Time Respiratory Rule-Out 03/27/2024 03/27/2024 024 10:28 PM EST COVID-19 Rule-Out 03/27/2024 03/27/2024 03/27/2024 10:28 PM EST Gastrointestinal Rule-Out 03/27/2024 03/27/2024 1:28 AM EST C. difficile Rule-Out 03/27/2024 03/27/20242023 12:43 AM EST Respiratory Rule-Out 01/04/2025 01/04/2025 025 5:53 PM EDT COVID-19 Rule-Out 01/04/2025 01/04/2025 01/04/2025 5:53 PM EDT documented as of this encounter Care Teams Home Care Consultant Relationship Specialty Start Date End Date Antonia Sanchez MD [address] [place] [phone] PCP - General Internal Medicine 02/08/15 documented as of this encounter
--- OUTSIDE RECORDS SUMMARY | 2024-01-15 06:53 | XMS_ITS | Encounter Summary ---
Author Organization [facility] [place] [address] Care Team Providers Care Press Smith Helper Name Role Phone Antonia Sanchez MD Primary Care Provider [phone] Encounter Details Date Type Department Care Team (Late st Contact Info) Description 01/15/2024 7:53 AM EDT Hospital Encounter TH HISTORIC ENCOUNTERS EASTERN CONVERSION ONLY Social History Tobacco Use Types Packs/Day Years [...] Sign Reading Time Taken Comments Blood Pressure - - Pulse - - Temperature - - Respiratory Rate - - Oxygen Saturation - - Inhaled Oxygen Concentration - - Weight 66 kg (145 lb 6.4 oz) 01/09/2024 9:45 AM EDT Height 165.1 cm (5' 5 ) 02/02/2021 9:56 AM EDT Body Mass Index 24.2 10/09/2023 10:39 AM EDT documented in this encounter Progress Notes * Historical, Notes Results - 01/15/2024 8:00 AM EDT Images from the original note were not included. Progress Notes by Saima Alexander RN at 01/15/2024 8:00 AM Author: Saima Alexander RN Service: -- Author Type: Registered Nurse Filed: 01/15/2024 11:44 AM Encounter Date: 01/15/2024 Status: Signed Electron Beam Machine Welder Setter: Saima Alexander RN (Registered Nurse) Pt arrives stable for IVIG infusion for chronic ITP. Stat CBCD drawn per standing order every 4 week with this infusion. Next apt in place. Pt to follow up with Dr Cordon to determine if this treatment was effective. Pt reports no bruising or bleeding noted. States she had bariatric surgery 2 years ago and her providers suspect she may bleed at surgical site/ulcer site from time to time. Deniesany bleeding recently. Pt reports no issues. Takes care of her dependent . Has a job interview today with [employer] which she is excited about. IV obtained x 3 attempts and 2 nurses due to difficultIV stick/rolling veins. Pt premedicated and rested x 30 minutes. 0915- Initiated IVIG per protocol after reviewing records of previous tolerance. Please See EMAR for steps. 1000- Labs resulted and reviewed. Provided copy to patient. Pt sleeping currently. Call dickinson and items within reach. 1145- Pt completed infusion without incident. Pt reports she is happy with her lab results and willcall with any s/s bleeding. Stable upon discharge with apts in place. documented in this encounter Plan of Treatment Upcoming Encounters Date Type Department Care Team (Late st Contact Info) Description 04/15/2025 8:00 AM EST Appointment [facility] Infusion Center [address] [facility] [address] [place] [address] 06/11/2025 8:45 AM EST Office Visit [facility] Hematology Oncology [address] [place] [phone] Bari Cordon MD [address] [place] [address] 08/06/2025 9:45 AM EDT Office Visit Bariatric Surgery - [place] [address] [place] [address] Galindo Lay MD [address] [place] [phone] documented as of this encounter Visit Diagnoses [...] documented as of this encounter Care Teams Press Smith Helper Relationship Specialty Start Date End Date Antonia Sanchez MD [address] [place] [address] PCP - General Internal Medicine 02/08/15 documented as of this encounter
[2025-04-08 12:45] VITALS: BP 110/70; PULSE 71; O2SAT 98; BMI 21.8
--- NOTE | 2025-04-08 12:45 | A.OFFPC_ITS ---
Vital Signs 04/08/25 12:45 Height 5 ft 5 in Weight 131 lb BMI 21.8 BP 110/70 Blood Pressure Location Lt brachial Position Sitting Pulse 71 Pulse Source Pulse Oximeter Pulse Oximetry (%) 98 Oxygen Delivery Method Room Air Intake Visit Reasons: Unexplained swelling on both hands Allergies acetaminophen (From Tylox) Allergy (Unknown, Verified 04/08/25 12:45) Nausea, sweating oxycodone (From PERCOCET) Allergy (Unknown, Verified 04/08/25 12:45) HIVES Medication List - Last Reconciled 04/08/25 by Antonia Sanchez MD ergocalciferol (vitamin D2) 1,250 mcg PO QWEEK escitalopram oxalate 20 mg PO DAILY ferrous sulfate 325 mg PO DAILY hydroxyzine HCl 100 mg PO BEDTIME pantoprazole (Protonix) 40 mg PO DAILY pyridoxine (vitamin B6) 50 mg PO DAILY trazodone 75 mg PO BEDTIME vitamin A 1 cap PO DAILY Tobacco use date assessed: 04/08/25 Dental Screening Dental Screen Date: 04/08/25 Did you have a dental problem in the last 6 months where you did not have access to dental care?: No HPI HPI Comments History of Present Illness Details History of Present Illness The patient is a 59 year old female presenting with hand swelling and left hip discomfort. Hand swelling: - For a few months, the patient has expe rienced symptoms in her hands primarily during sleep or rest. - Her hands swell at night, which wakes her up and prevents her from putting on her rings in the morning. - She reports tenderness but denies her hands hurt when she is awake. - The patient denies experiencing any ti ngling sensations in her hands. Left hip discomfort: - She has also had symptoms in her left hip for a few months. - The patient describes the sensation as her hip shrinking when she is sleeping, which is relieved for a short time by stretching. - She denies any pain in her hip when sh e is not sleeping. Hearing Impairment: - The patient reports that her hearing a ids are broken and requests a referral for a hearing test. Medical History: - Hearing impairment requiring hearing a ids [facility] Surgical History History of gastric bypass Fusion of lumbosacral spine History of section History of tonsillectomy History of hysterectomy Family History Father No problems noted. Mother History of heart attack Maternal Grandfather Unknown family medical history Maternal Grandmother No problems noted. Paternal Grandfather History of heart attack Paternal Grandmother Alzheimer's disease Brother No problems noted. Sister No problems noted. Sister No problems noted. Son No problems noted. Daughter No problems noted. 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, rt hand Cognitive needs: No Hearing needs: Yes Vision needs: Yes Questionnaire Thrive Questionnaire Date Thrive assessed: 06/13/24 I am a: Patient What is your living situation today?: I have a steady place to live Within the past 12 months, did the food you bought not last and you didn't have the money to get more?: Never true Within the past 12 months, did you worry whether your food would run out before you got money to buy more?: Never true Do you have trouble paying for medicines?: No Do you have trouble getting transportation to medical appointments?: No Do you have trouble paying your heating and electricity bill?: Yes Do you have trouble taking care of your child, family member or friend?: No Do you have trouble with day-to-day activities such as bathing, preparing meals, shopping, managing finances, etc.?: No Are you currently unemployed and looking for a job?: Yes Are you interested in more education?: Yes Currently or been in a relationship where the following occur: No concerns reported THRIVE Score: 1 AUDIT C Alcohol Use Questionnaire (AUDIT-C) 1. How often do you have a drink containing alcohol?: Never 3. How often do you have six or more drinks on one occasion?: Never Total Score: 0 Score Reviewed/Action Taken: Yes JOCY-7 AMB Questionnaire JOCY-7 Date JOCY - 7 assessed: 06/13/24 Source: Developed by Drs. Andrea Vargas, Mary Mccallum, Johan Lamb and colleagues, with an educational fransico from [employer]. Review of Systems Narrative Review of Systems - General: No fever no chills - Neurological: No headaches no dizziness - Ear nose throat: No sore throat no hearing difficulty no ear pain - Cardiovascular: No syncope, no chest pain, no palpitations - Gastrointestinal: No nausea vomiting or diarrhea - Endocrine: No polyuria polydipsia no heat intolerance - Genitourinary: No dysuria , no blood in urine Physical exam (Primary Care) Vital Signs: Last Vital Signs Pulse 71 04/08/25 12:45 BP 110/70 04/08/25 12:45 Pulse Ox 98 04/08/25 12:45 Oxygen Delivery Method Room Air 04/08/25 12:45 BMI result Body Mass Index 21.8 Tobacco/Smoking Status: Tobacco use Status Tobacco use date assessed 04/08/25 04/08/25 12:47 Patient Tobacco Use Status Former Tobacco user 04/08/25 12:47 e-Cigarette/Vaping Use Never Used 04/08/25 12:47 Thrive Assessment: Date of Thrive Assessment Date Thrive assessed 06/13/24 04/08/25 12:47 Currently or been in a relationship where the following occur: No concerns reported Narrative Physical Exam General: No acute distress HEENT: No acute findings Neck: Supple Respiratory system: Able to talk in full sentences, no audible wheeze Extremities: no pain with tapping wrists, full ROM in fingers and wrist, mild discomfort over medial wrist both side left hip with full ROM Back : no pain with percussion TRAINING FACILITATOR: Alert awake oriented x3 motor intact Skin: Normal turgor Coding Level of Care Code Est Pt Level 4 (81541) Diagnoses Hip pain, left M25.552 Lumbar pain M54.50 Pain in both hands M79.641; M79.642 Hearing loss, bilateral H91.93 Time Spent (min) 30 Comment time spent in care of this patient Assessment & Plan Assessment & Plan (1) Hip pain, left: Code(s): M25.552 - Pain in left hip Category: Medical (2) Lumbar pain: Code(s): M54.50 - Low back pain, unspecified Category: Medical (3) Pain in both hands: Code(s): M79.641 - Pain in right hand; M79.642 - Pain in left hand Category: Medical (4) Hearing loss, bilateral: Code(s): H91.93 - Unspecified hearing loss, bilateral Category: Medical Plan Problem List - Bilateral hand swelling at night - Left hip arthralgia - Hearing impairment Plan - An x-ray of the hip and lower back will be ordered to assess for arthritis. - A nerve conduction study will be ordered for the hands to investigate for carpal tunnel syndrome, as symptoms are suggestive of this condition. - A referral will be placed for an audiology evaluation. - She will be contacted for scheduling of the nerve conduction study and audiology appointment. - A follow-up appointment will be scheduled to discuss the results of all ordered tests. Orders: Orders XR hip LT min 2V Today M25.552 - Pain in left hip XR lumbar spine 2-3V Today M54.50 - Low back pain, unspecified NE electromyogram (EMG) Today M79.641 - Pain in right hand, M79.642 - Pain in left hand NE nerve conduction velocity Today M79.641 - Pain in right hand, M79.642 - Pain in left hand Referrals Audiology Referral H91.93 - Unspecified hearing loss, bilateral
--- OUTSIDE RECORDS SUMMARY | 2025-04-08 14:20 | XMS_ITS | Clinical Summary ---
Author Organization [facility] Address [address] [facility] [address] [place] [address] Phone Care Team Providers Care Service Greeter Name Role Phone Antonia Sanchez MD Primary Care Provider [phone] Allergies No known active allergies Medications carbamide peroxide (DEBROX) 6.5 % otic solution Place 5 drops into the right ear once a week. 15 mL 3 08/13/2018 Active Active Problems No known active problems Social History Tobacco Use Types Packs/Day Years Used Date Smoking Tobacco: Never Smokeless Tobacco: Never Alcohol Use Standard Drinks/Week Comments Never 0 (1 standard drink = 0.6 oz pur e alcohol) Education Answer Date Recorded Are you interested in more education? Not on maria ines e 08/04/2022 Are you concerned about learning? Not on file 08/04/2022 No 08/04/2022 No 08/04/2022 Digital Access Answer Date Recorded No 09/02/2022 No 09/02/2022 Reliable internet access at home? Not on file 09/02/2022 Device with a working camera? Not on file Comments Unknown Sex and Gender Information Value Date Recorded Sex Assigned at Not on file Legal Sex Female 9:02 AM EDT Gender Identity Not on file Sexual Orientation Not on file Last Filed Vital Signs Vital Sign Reading Time Taken Comments Blood Pressure 101/60 08/13/2018 9:44 AM EDT Pulse 84 08/13/2018 9:44 AM EDT Temperature - - Respiratory Rate - - Oxygen Saturation - - Inhaled Oxygen Concentration - - Weight 73 kg (161 lb) 10/09/2018 12:03 PM EDT Height 165.1 cm (5' 5 ) 10/09/2018 12:03 PM EDT Body Mass Index 26.79 10/09/2018 12:03 PM EDT Plan of Treatment Health Maintenance Due Date Last Done Comments LIPID PANEL 1967 DEPRESSION SCREENING 1979 HEPATITIS C SCREENING 06/25/1985 HIV ONE-TIME SCREENING (18-6 5 YEARS) 06/25/1985 PAP SMEAR 06/25/1988 MAMMOGRAM 2007 COLOGUARD 06/25/2012 COLONOSCOPY 06/25/2012 COLORECTAL CANCER SCREENING 06/25/2012 FIT TEST 06/25/2012 FOBT 06/25/2012 SIGMOIDOSCOPY 06/25/2012 VIRTUAL COLONOSCOPY 06/25/2012 ZOSTER VACCINES (1 of 2) 06/25/2017 PNEUMOCOCCAL VACCINES (50+ years) (3 of 3 - PCV20 or PCV21) 06/09/2018 06/09/2013, 04/07/2013 Adult Td,Tdap Booster 07/16/2021 07/17/2011 INFLUENZA VACCINE (#1) 2024 9, 03/16/2011 COVID-19 VACCINE (2 - 2024-2 6 season) 2024 07/26/2020 RSV VACCINE (1 - 1-dose 75+ series) 06/25/2042 HIB VACCINES Aged Out 04/17/2013 No longer eligi ble based on patient's age to complete this topic SMOKING STATUS SCREENING (On ce After 26 Yrs) Completed 10/09/2018 HEPATITIS A VACCINES Aged Out No long er eligible based on patient's age to complete this topic MENINGOCOCCAL VACCINES (ACWY) Aged Out No longer eligible based on patient's age to complete this topic MENINGOCOCCAL VACCINES (B) Aged Out N o longer eligible based on patient's age to complete this topic Medical Devices Not on file [place] [address] [address] [place] [address] [place] [address] [place] [address] [place] [address] [place] [address] [address] [place] [address] [place] [address] [address] [place] [address] A[address] [facility] ACO [facility] ACO Care Teams Service Greeter Relationship Specialty Start Date End Date Antonia Sanchez MD [address] [facility] [place] [address] PCP - General Internal Medicine 07/24/18 Additional Source Comments The information contained in this document represents components of the legal health record. It is not the complete legal health record.[facility]
--- OUTSIDE RECORDS SUMMARY | 2025-04-08 14:21 | XMS_ITS | Clinical Summary ---
Author Organization [facility] Prior to 09/06/24 Address [address] [place] [address] Care Team Providers Care Small Package And Bundle Sorter Clerk Name Role Phone Antonia Sanchez MD Primary Care Provider [phone] Allergies Active Allergy Reactions Criticality Noted Date [...] 78 01/15/2024 8:06 AM EDT Temperature 36.9 C (98.5 F) 01/15/2024 8:06 AM EDT Respiratory Rate 18 11/20/2023 9:16 AM EDT Oxygen Saturation 100% 01/15/2024 8:06 [...] Tdap) 04/17/2023 04/17/2013, 07/17/2011 Influenza Vaccine (#1) 2024 Pneumococcal Vaccine Aged Out 06/09/2013, 04/07/2013 No longer eligible based on patient's age to complete this topic RSV Ped < 20 months Aged Out No longe r eligible based on patient's age to complete this topic Care Teams Small Package And Bundle Sorter Clerk Relationship Specialty Start Date End Date Antonia Sanchez MD [address] [place] [address] PCP - General Internal Medicine 01/17/23
--- OUTSIDE RECORDS SUMMARY | 2025-04-08 14:21 | XMS_ITS | Encounter Summary ---
Author Organization [facility] [place] [address] Care Team Providers Care Stretch Box Tender Name Role Phone Antonia Sanchez MD Primary Care Provider [phone] Encounter Details Date Type Department Care Team (Latest Contact Info) Description 07/04/2024 Lab Requisition [facility] - Main Lab [address] [facility] [place] [phone] Antonia Sanchez MD [address] [place] [phone] Immune thrombocytopenic purpura (CMS/HCC V24, CMS/HCC V28); Personal history of other endocrine, nutritional and [...] Upcoming Encounters Date Type Department Care Team ( st Contact Info) Description 04/15/2025 8:00 AM EST Appointment [facility] [address] [place] [phone] 06/11/2025 8:45 AM EST Office Visit [facility] Hematology Oncology [address] [place] [address] Bari Cordon MD [address] [place] [address] 08/06/2025 9:45 AM EDT Office Visit Bariatric Surgery - [place] [address] [facility] [address] [place] [address] Galindo Lay MD [address] [place] [phone] documented as of this encounter Procedures Procedure [...] * SST tube (07/04/2024 8:47 AM EDT) Extra Tube Hold for add-ons. 07/04/2024 12:01 PM [facility] Comment:Auto resulted. Blood Venous blood specimen / Unknown 07/04/2024 8:47 AM EDT 07/04/2024 10:19 AM EDT us Antonia Sanchez MD LAB BLOOD ORDERABLES Final Resul t [facility] [address] [place] [address], * (ABNORMAL) Comprehensive metabolic panel (07/04/2024 8:47 AM EDT) Sodium 138 133 - 145 mmol/L LAB CHEMISTRY METHOD 07/04/2024 12:26 PM [facility] Potassium 3.9 3.5 - 5.5 mmol/L LAB CHEMISTRY METHOD 07/04/2024 12:26 PM [facility] Chloride 105 96 - 110 mmol/L LAB CHEMISTRY METHOD 07/04/2024 12:26 PM [facility] CO2 29 21 - 32 mmol/L LAB CHEMISTRY METHOD 07/04/2024 12:26 PM [facility] Anion Gap 4 3 - 11 LAB CHEMISTRY METHOD 07/04/2024 12:26 PM [facility] Glucose 135(H) 70 - 100 mg/dL LAB CHEMISTRY METHOD 07/04/2024 12:26 PM [facility] BUN 9 5 - 25 mg/dL LAB CHEMISTRY METHOD 07/04/2024 12:26 PM [facility] Creatinine 0.43(L) 0.50 - 1.10 mg/dL LAB CHEMISTRY METHOD 07/04/2024 12:26 PM [facility] eGFR 114 >=60 mL/min/1. 73m2 LAB CHEMISTRY METHOD 07/04/2024 12:26 PM [facility] Comment:Calculation based on the Chronic Kidney Disease Epidemiology Collaboration (CKD-EPI) equation refit without adjustment for race. BUN/Creatinine Ratio 20.9 LAB CHEMISTRY METHOD 07/04/2024 12:26 PM T [facility] Calcium 8.2(L) 8.5 - 10.5 mg/dL LAB CHEMISTRY METHOD 07/04/2024 12:26 PM [facility] AST (SGOT) 15 10 - 42 unit/L LAB CHEMISTRY METHOD 07/04/2024 12:26 PM [facility] ALT (SGPT) 16 10 - 60 unit/L LAB CHEMISTRY METHOD 07/04/2024 12:26 PM [facility] Alkaline Phosphatase 74 42 - 121 unit/L LAB CHEMISTRY METHOD 07/04/2024 12:26 PM [facility] Total Protein 6.3 6.0 - 8.0 g/dL LAB CHEMISTRY METHOD 07/04/2024 12:26 PM [facility] Albumin 3.5 3.2 - 5.0 g/dL LAB CHEMISTRY METHOD 07/04/2024 12:26 PM [facility] Total Bilirubin 0.4 0.0 - 1.4 mg/dL LAB CHEMISTRY METHOD 07/04/2024 12:26 PM [facility] Blood Venous blood specimen / Unknown 07/04/2024 8:47 AM EDT 07/04/2024 10:18 AM EDT us Antonia Sanchez MD LAB BLOOD ORDERABLES Final Resul t [facility] [address] [place] [address], * (ABNORMAL) Vitamin D 25 hydroxy (07/04/2024 8:47 AM EDT) Vit D, 25-Hydroxy 24.8(L) 30.0 - 80.0 ng/mL LAB CHEMISTRY METHOD 07/04/2024 1:19 PM EDT [facility] Blood Venous blood specimen / Unknown 07/04/2024 8:47 AM EDT 07/04/2024 10:18 AM EDT us Antonia Sanchez MD LAB BLOOD ORDERABLES Final Resul t Performing Organization Address City/[facility]/ZIP Co de Phone Number [facility] [address] [place] [address], [place] [phone] * Vitamin B12 (07/04/2024 8:47 AM EDT) Vitamin B-12 336 250 - 900 pcg/mL LAB CHEMISTRY METHOD 07/04/2024 12:26 PM EDT [facility] Blood Venous blood specimen / Unknown 07/04/2024 8:47 AM EDT 07/04/2024 10:18 AM EDT us Antonia Sanchez MD LAB BLOOD ORDERABLES Final Resul t Performing Organization Address [facility] Co de Phone Number [facility] [address] [place] [address], [place] [phone] * Thyroid stimulating hormone with reflex to free t4 and free t3 (07/04/2024 8:47 AM EDT) TSH 0.43 0.40 - 4.00 mcIU/mL LAB CHEMISTRY METHOD 07/04/2024 1:19 PM EDT [facility] Blood Venous blood specimen / Unknown 07/04/2024 8:47 AM EDT 07/04/2024 10:18 AM EDT us Antonia Sanchez MD LAB BLOOD ORDERABLES Final Resul t Performing Organization Address City/[facility]/ZIP Co de Phone Number [facility] [address] [place] [address], [place] [phone] documented in this encounter Visit Diagnoses Diagnosis Immune thrombocytopenic purpura (CMS/HCC V24, CMS/HCC V28) Immune thrombocytopenic purpura Personal history of other endocrine, nutritional and metabolic disease documented in this encounter Additional Health Concerns Infection Onset Date Last Indicated Resolved Time Respiratory Rule-Out 01/04/2025 01/04/2025 025 5:53 PM EDT COVID-19 Rule-Out 01/04/2025 01/04/2025 01/04/2025 5:53 PM EDT documented as of this encounter Care Teams Stretch Box Tender Relationship Specialty Start Date End Date Antonia Sanchez MD [address] [place] [phone] PCP - General Internal Medicine 02/08/15 documented as of this encounter
--- OUTSIDE RECORDS SUMMARY | 2025-04-08 14:21 | XMS_ITS | Clinical Summary ---
Author Organization [facility] Address [address] [place] [address] Phone Care Team Providers Care Assistant Manager Trainee Name Role Phone Antonia Sanchez MD Primary Care Provider [phone] Allergies Active Allergy Reactions Criticality Noted Date Comments Oxycodone-Acetaminophen Nausea And Vomiting Tyloxapol 01/29/2019 Medications hydrOXYzine HCL (ATARAX) 10 mg tablet Take 10 tablets (100 mg total) by mouth 1 (one) time each day. 04/04/20 24 Active escitalopram (LEXAPRO) 20 mg tablet Take 1 tablet (20 mg total) by mouth 1 (one) time each day. 07/03/19 25 Active traZODone (DESYREL) 50 mg tablet Take 1 tablet (50 mg total) by mouth at bedtime. 10/30/19 25 Active lidocaine-priloca ine (EMLA) 2.5-2.5 % cream Apply topically every 14 (fourteen) days. 30 g 3 12/20/19 25 Active ergocalciferol (VITAMIN D-2) 1,250 mcg (50,000 unit) capsuleIndication s:Vitamin D deficiency Take 1 capsule (50,000 Units total) by mouth 1 (one) time per week for 8 doses. 8 each 02/21/20 25 026 Active pyridoxine (Vitamin B-6) 50 mg tabletIndications :Postgastrectomy malabsorption Take 1 tablet (50 mg total) by mouth 1 (one) time each day. 30 each 5 02/26/20 25 026 Active vitamin A 3,000 mcg (10,000 unit) tabletIndications :Postgastrectomy malabsorption Take 1 tablet (10,000 Units total) by mouth 1 (one) time each day. 30 tablet 3 02/26/20 25 026 Active ferrous sulfate 325 mg (65 mg iron) EC tabletIndications :Postgastrectomy malabsorption TAKE 1 TABLET (325 MG TOTAL) BY MOUTH ONCE DAILY DO NOT CRUSH, CHEW, OR SPLIT 90 tablet 1 04/01/20 25 Active ferrous sulfate 325 mg (65 mg iron) EC tabletIndications :Postgastrectomy malabsorption TAKE 1 TABLET (325 MG TOTAL) BY MOUTH ONCE DAILY DO NOT CRUSH, CHEW, OR SPLIT 90 tablet 1 09/30/19 25 025 Discontinued Active Problems Problem Noted Date Diagnosed Date Overweight (BMI 25.0-29.9) 07/10/2024 Chronic ITP (idiopathic thrombocytopenia) 2022 Encounters Date Type Department Care Team Description 03/18/2025 7:51 AM EST - 03/18/2025 11:59 PM EST Hospital Encounter [address] [phone] Chronic ITP (idiopathic thrombocytopenia) (CMS/HCC V24, CMS/HCC V28) (Primary Dx) Discharge Disposition: Home or Self Care 03/09/2025 8:45 AM EST Office Visit [facility] Hematology Oncology [address] [place] [phone] Bari Cordon MD Chronic ITP (idiopathic thrombocytopenia) (CMS/HCC V24, CMS/HCC V28) (Primary Dx) 02/18/2025 7:54 AM EST - 02/18/2025 11:59 PM EST Hospital Encounter [facility] Infusion Center [address] [place] [phone] Bari Cordon MD Chronic ITP (idiopathic thrombocytopenia) (CMS/HCC V24, CMS/HCC V28) (Primary Dx); Postgastrectomy malabsorption Discharge Disposition: Home or Self Care 02/05/2025 8:00 AM EDT Office Visit [facility] [address] [place] [address] Galindo Lay MD Postgastrectomy malabsorption (Primary Dx) 01/19/2025 8:27 AM EDT - 01/19/2025 11:59 PM EDT Hospital Encounter [facility] Infusion Center [address] [place] [address] Bari Cordon MD Chronic ITP (idiopathic thrombocytopenia) (CMS/HCC V24, CMS/HCC V28) (Primary Dx) Discharge Disposition: Home or Self Care from Last 3 Months Surgical History Surgery Date Site/Laterality Comments TUBAL LIGATION PROCEDURE: HISTORICAL TUBAL LIGATION TONSILLECTOMY PROCEDURE: HISTORICAL TONSILLECTOMY OTHER SURGICAL HISTORY 09/2003 PROCEDURE: MD ARTHRODESIS ANTERIOR SPINAL DFRM 4-7 VRT SGM; COMMENT: Dr. Luis SECTION PROCEDURE: HISTORICAL ; COMMENT: times 2 HYSTERECTOMY 2008 PROCEDURE: HISTORICAL HYSTERECTOMY; COMMENT: Bleeding MULTIPLE TOOTH EXTRACTIONS PROCEDURE: HISTORICAL DENTAL EXTRACTION ESOPHAGOGASTRODUODENOSCOPY 07/08/2021 PROCEDURE: MD ESOPHAGOGASTRODUODENOSCOPY TRANSORAL DIAGNOSTIC; COMMENT: esophagitis - recommend [...] l overgrowth (SIBO) Idiopathic thrombocytopenic purpura (ITP) (CMS/HCC V24, CMS/HCC V28) 1940 DX:Idiopathic thrombo cytopenic purpura (ITP) ([facility]);COMMENT:Has been treated intermittently with prednisone and other [...] 2 Q uit: 04/09/2014 Smokeless Tobacco: Never Tobacco [...] Orientation Straight 05/06/2024 8: 06 AM EST Last Filed Vital Signs Vital Sign Reading Time Taken Comments Blood Pressure 99/72 03/18/2025 8:12 AM EST Pulse 72 03/18/2025 8:12 AM EST Temperature 36.8 C (98.2 F) 03/18/2025 8:12 AM EST Respiratory Rate 18 03/18/2025 8:12 AM EST Oxygen Saturation 100% 03/18/2025 8:12 AM EST Inhaled Oxygen Concentration - - Weight 57 kg (125 lb 9.6 oz) 03/18/2025 8:12 AM EST Height 165.1 cm (5' 5 ) 02/05/2025 8:11 AM EDT Body Mass Index 20.9 02/05/2025 8:11 AM EDT Plan of Treatment Upcoming Encounters Date Type Department Care Team (Late st Contact Info) Description 04/15/2025 8:[address] [facility] Infusion Center [address] [place] [phone] 06/11/2025 8:45 AM EST Office Visit [facility] Hematology Oncology [address] [place] [phone] Bari Cordon MD [address] [place] [address] 08/06/2025 9:45 AM EDT Office Visit [facility] [address] [place] [phone] Galindo Lay MD [address] [place] [phone] Health Maintenance Due Date Last Done Comments Breast Cancer Screening 1965 Colorectal Cancer Screening: Colonoscopy 1965 Hepatitis A Vaccines (1 of 2 [...] 06/09/2013, 04/07/2013 Cholesterol Screening (Lipid Panel) 03/12/2022 Lung Cancer Screening (Low Dose CT) 03/12/2022 Social Influencers of Health Screening 03/12/2022 DTaP,Tdap,and Td Vaccines (3 - Td or Tdap) 04/17/2023 04/17/2013, 07/17/2011 Depression Screening 04/09/2024 COVID-19 Vaccine (3 - 2024-2 6 season) 2024 08/25/2020, 07/26/2020 Influenza Vaccine (#1) 2024 , 03/16/2011 Osteoporosis Screening (Bone Density Screening) 11/10/2034 11/10/2024 RSV Immunization Adult Patients (1 - 1-dose 75+ series) 06/25/2042 HIB Vaccines Aged Out 04/17/2013, 04/17/2013 No longer eligible based on patient's age to complete this topic HIV Screening Completed 01/04/2025 Hepatitis C Screening Completed 01/05/2025 , 01/04/2025 HPV Vaccines Aged Out No longer eligi ble based on patient's age to complete this topic MMR Vaccines Aged Out No longer eligi ble based on patient's age to complete this topic Meningococcal ACWY Vaccine Aged Out N o longer eligible based on patient's age to complete this topic Meningococcal B Vaccine Aged Out No l onger eligible based on patient's age to complete this topic RSV Immunization Patients Under 20 months Aged Out No longer eligible b ased on patient's age to complete this topic Varicella Vaccines Aged Out No longer eligible based on patient's age to complete this topic Medical Devices Implanted Type Area Director Of Estate Device Identifier Shelf Expiration Date Model / Serial / Lot Port Pwr Slim Poly 6f Evelyn Inte Attach - [id number] - [id number] Implanted:Qty: 1 on 05/30/2024 by Seven Tanner MD at [facility]/Courtney pheral Catheters and Ports Right: Chest Wall CR [employer]ARD [employer] [id number] 02/06/2025 [id number] / [id number] / [id number] Procedures Procedure Name Priority Date/Time Associated Diagnosis Comments CBC WITH AUTO DIFFERENTIAL STAT 03/18/2025 8:37 AM EST Chronic ITP (idiopathic thrombocytopenia) (CMS/HCC V24, CMS/HCC V28) CBC AND DIFFERENTIAL STAT 03/18/2025 8:37 AM EST Chronic ITP (idiopathic thrombocytopenia) (CMS/HCC V24, CMS/HCC V28) VITAMIN A Routine 02/18/2025 12:08 PM EST Postgastrectomy malabsorption VITAMIN B1 Routine 02/18/2025 12:08 PM EST Postgastrectomy malabsorption VITAMIN B6 Routine 02/18/2025 12:08 PM EST Postgastrectomy malabsorption CBC WITH AUTO DIFFERENTIAL STAT 02/18/2025 8:50 AM EST Chronic ITP (idiopathic thrombocytopenia) (CMS/HCC V24, CMS/HCC V28) ALBUMIN Routine 02/18/2025 8:50 AM EST Postgastrectomy malabsorption VITAMIN D 25 HYDROXY Routine 02/18/2025 8:50 AM EST Postgastrectomy malabsorption CBC AND DIFFERENTIAL STAT 02/18/2025 8:50 AM EST Chronic ITP (idiopathic thrombocytopenia) (CMS/HCC V24, CMS/HCC V28) CBC WITH AUTO DIFFERENTIAL STAT 01/19/2025 8:53 AM EDT Chronic ITP (idiopathic thrombocytopenia) (CMS/HCC V24, CMS/HCC V28) CBC AND DIFFERENTIAL STAT 01/19/2025 8:53 AM EDT Chronic ITP (idiopathic thrombocytopenia) (CMS/HCC V24, CMS/HCC V28) HEPATITIS C VIRUS QUANTITATIVE PCR STAT 01/05/2025 12:22 AM EDT HIV 1, 2 ANTIBODY, P24 ANTIGEN WITH REFLEX TO DIFFERENTIATION STAT Add-on 01/04/2025 2:20 PM EDT BD BONE DENSITY DXA AXIAL SKELETON Routine 11/10/2024 9:09 AM EDT Postgastrectomy malabsorption from Last 3 Months or Most Recently Relevant to Health Maintenance Results * (ABNORMAL) CBC auto differential (03/18/2025 8:37 AM EST) Only the most recent of3 resultswithin the time period is included. WBC 4.8 4.8 - 10.8 [facility] LAB HEMETOLOGY METHOD 03/18/2025 9:04 AM [facility] RBC 3.50(L) 3.80 - 4.80 M/mcL LAB HEMETOLOGY METHOD 03/18/2025 9:04 AM [facility] Hemoglobin 10.5(L) 11.5 - 16.0 g/dL LAB HEMETOLOGY METHOD 03/18/2025 9:04 AM [facility] Hematocrit 30.3(L) 35.0 - 47.0 % LAB HEMETOLOGY METHOD 03/18/2025 9:04 AM [facility] MCV 86.8 79.0 - 98.0 FL LAB HEMETOLOGY METHOD 03/18/2025 9:04 AM [facility] MCH 30.1 27.0 - 32.0 pcg LAB HEMETOLOGY METHOD 03/18/2025 9:04 AM [facility] MCHC 34.7 32.0 - 37.0 g/dL LAB HEMETOLOGY METHOD 03/18/2025 9:04 AM [facility] RDW 13.3 11.0 - 15.0 % LAB HEMETOLOGY METHOD 03/18/2025 9:04 AM [facility] Platelets 66(L) 130 - 400 K/mcL LAB HEMETOLOGY METHOD 03/18/2025 9:04 AM [facility] MPV 11.2(H) 7.0 - 11.0 FL LAB HEMETOLOGY METHOD 03/18/2025 9:04 AM [facility] NRBC 0.0 <1.0 % LAB HEMETOLOGY METHOD 03/18/2025 9:04 AM [facility] NRBC Absolute 0.00 <0.10 K/mcL LAB HEMETOLOGY METHOD 03/18/2025 9:04 AM [facility] Neutrophils Relative 58.9 % LAB HEMETOLOGY METHOD 03/18/2025 9:04 AM [facility] Lymphocytes Relative 30.6 % LAB HEMETOLOGY METHOD 03/18/2025 9:04 AM [facility] Monocytes Relative 6.9 % LAB HEMETOLOGY METHOD 03/18/2025 9:04 AM [facility] Eosinophils Relative 1.7 % LAB HEMETOLOGY METHOD 03/18/2025 9:04 AM [facility] Basophils Relative 1.7 % LAB HEMETOLOGY METHOD 03/18/2025 9:04 AM [facility] Immature Granulocytes Relative 0.2 % LAB HEMETOLOGY METHOD 03/18/2025 9:04 AM [facility] Neutrophils Absolute 2.84 1.50 - 7.00 K/mcL LAB HEMETOLOGY METHOD 03/18/2025 9:04 AM [facility] Lymphocytes Absolute 1.47 1.00 - 5.00 K/mcL LAB HEMETOLOGY METHOD 03/18/2025 9:04 AM [facility] Monocytes Absolute 0.33 0.20 - 1.00 K/mcL LAB HEMETOLOGY METHOD 03/18/2025 9:04 AM [facility] Eosinophils Absolute 0.08 0.00 - 0.50 K/mcL LAB HEMETOLOGY METHOD 03/18/2025 9:04 AM [facility] Basophils Absolute 0.08 0.00 - 0.20 K/mcL LAB HEMETOLOGY METHOD 03/18/2025 9:04 AM [facility] Immature Granulocytes Absolute 0.01 0.00 - 0.03 K/mcL LAB HEMETOLOGY METHOD 03/18/2025 9:04 AM [facility] Blood Blood sample taken from central line / Unknown Existing Catheter / Unknown 03/18/2025 8:37 AM EST 03/18/2025 8:58 AM EST us Bari Cordon MD LAB BLOOD ORDERABLES Final R esult [facility] ([facility] [address] [place] [address], * (ABNORMAL) Vitamin A (02/18/2025 12:08 PM EST) Vitamin A 26(L) 38 - 106 ug/dL 02/24/2025 6:05 AM EST [facility] Comment: This test was developed and the performance characteristics determined by [facility]. It has not been cleared or approved by the FDA. The laboratory is regulated under CLIA as qualified to perform high-complexity testing. This test is used for patient testing purposes. It should not be regarded as investigational or for research. Test performed at [facility], [address] [place] [address] Candelaria Cole MD, PhD - Intensive Care Anaesthetist Blood Blood sample taken from central line / Unknown Existing Catheter / Unknown 02/18/2025 12:08 PM EST 02/18/2025 1:46 PM EST Galindo Lay MD LAB BLOOD ORDERABLES Final R esult [facility] [address] [place] [address] * Vitamin B1 (02/18/2025 12:08 PM EST) Vitamin B1 Whole Blood 57 38 - 122 ug/L 02/24/2025 12:07 PM EST [facility] Comment: This test was developed and the performance characteristics determined by [facility]. It has not been cleared or approved by the FDA. The laboratory is regulated under CLIA as qualified to perform high-complexity testing. This test is used for patient testing purposes. It should not be regarded as investigational or for research. Test performed at [facility], [address] , [place] [address] Candelaria Cole MD, PhD - Intensive Care Anaesthetist Blood Blood sample taken from central line / Unknown Existing Catheter / Unknown 02/18/2025 12:08 PM EST 02/18/2025 1:46 PM EST us Galindo Lay MD LAB BLOOD ORDERABLES Final R esult Performing Organization Address [facility] [address]/ZIP Co de Phone Number [facility] [address] [place] [address] * (ABNORMAL) Vitamin B6 (02/18/2025 12:08 PM EST) Pathologist [facility] Vitamin B6 (Pyridoxine) Level 4(L) 5 - 50 ug/L 02/24/2025 12:56 PM EST [facility] Comment: This test was developed and the performance characteristics determined by [facility]. It has not been cleared or approved by the FDA. The laboratory is regulated under CLIA as qualified to perform high-complexity testing. This test is used for patient testing purposes. It should not be regarded as investigational or for research. Test performed at [facility], [address] [place] [address] Candelaria Cole MD, PhD - Intensive Care Anaesthetist Blood Blood sample taken from central line / Unknown Existing Catheter / Unknown 02/18/2025 12:08 PM EST 02/18/2025 1:46 PM EST us Galindo Lay MD LAB BLOOD ORDERABLES Final R esult Performing Organization Address City/[facility] [address]/ZIP Co de Phone Number [facility] [address] [place] [address] * (ABNORMAL) Vitamin D 25 hydroxy (02/18/2025 8:50 AM EST) Vit D, 25-Hydroxy 14.2(L) 30.0 - 80.0 ng/mL LAB CHEMISTRY METHOD 02/18/2025 10:00 AM EST [facility] Blood Blood sample taken from central line / Unknown Existing Catheter / Unknown 02/18/2025 8:50 AM EST 02/18/2025 9:06 AM EST us Galindo Lay MD LAB BLOOD ORDERABLES Final R esult [facility] [address] [place] [address], [place] [phone] * Albumin (02/18/2025 8:50 AM EST) [facility] [address] [facility] Albumin 3.5 3.2 - 5.0 g/dL LAB CHEMISTRY METHOD 02/18/2025 9:26 AM EST [facility] Blood Blood sample taken from central line / Unknown Existing Catheter / Unknown 02/18/2025 8:50 AM EST 02/18/2025 9:06 AM EST us Galindo Lay MD LAB BLOOD ORDERABLES Final R esult [facility] [address] [place] [address], [place] [phone] * Hepatitis C virus quantitative molecular study (01/05/2025 12:22 AM EDT) [facility] HCV Qual Interp Not Detected Not Detected LAB MOLECULAR DIAGNOSTICS METHOD 01/06/2025 10:32 AM EDT [facility] Comment:HCV RNA not detected , unable to report quantitative results. Blood Venous blood specimen / Unknown Venipuncture / Unknown 01/05/2025 12:22 AM EDT 01/05/2025 12:25 AM EDT us Albina Edmondson MD LAB BLOOD ORDERABLES Final Resul t [facility] [address] [place] [address], [place] [phone] * HIV 1,2 antibody, p24 antigen with reflex to differentiation (01/04/2025 2:20 PM EDT) HIV Combo AB/AG Negative Negative LAB CHEMISTRY METHOD 01/05/2025 1:24 AM EDT [facility] Blood Venous blood specimen / Unknown Venipuncture / Unknown 01/04/2025 2:20 PM EDT 01/04/2025 2:59 PM EDT Narrative [facility] - 01/05/2025 1:24 AM EDT This assay is a 4th generation assay allowing for earlier detection of HIV infection by detecting the presence of the HIV-1 p24 antigen as well as the traditional antibodies to HIV type 1 (including group O) and type 2. Use of a 4th generation assay is the current CDC recommendation for HIV screening. us Stephanie STEELE LAB BLOOD ORDERABLES Fin al Result [facility] [address] [place] [address], * BD Bone Density DXA Axial Skeleton (11/10/2024 9:09 AM EDT) Anatomical Region Laterality Modality Wrist, Hip, L-spine Bone Densito metry 11/11/2024 11:3 9 AM EDT Impressions 11/11/2024 11:41 AM EDT 1. Osteoporosis. 2. FRAX analysis yields a 10-year probability of major osteoporotic fracture of 9.2% and a 10-year probability of hip fracture of 1.7%. Code 52975 -------- FINAL REPORT -------- Dictated By: Lc Jerome Dictated Date: 11/11/2024 11:39 ET Assigned Physician: Lc Jerome Reviewed and Electronically Signed By: Lc Jerome Signed Date: 11/11/2024 11:41 ET Workstation ID: [id number] Transcribed By: Self Edit Transcribed Date: 11/11/2024 11:39 ET Narrative 11/11/2024 11:41 AM EDT HISTORY: The patient is a 59-year-old postmenopausal female with clinical concern for metabolic bone disease. FINDINGS: Dual energy x-ray absorptiometry of the lumbar spine and femurs is performed. The mean bone mineral density at L1-3 is 1.005 gm/cm2 which is 86% of that of young normals and 100% of that of age matched controls. This yields a T-score of -1.4 and a Z-score of 0.0 which is diagnostic of osteopenia. The mean bone mineral density of the femurs bilaterally is 0.672 gm/cm2 which is 67% of that of young normals and 77% of that of age matched controls. This yields a T-score of -2.7 and a Z-score of -1.6 which is diagnostic of osteoporosis. The T-score of the right femur is -2.8 which is diagnostic of osteoporosis. Procedure Note Lc Jerome MD - 11/11/2024 HISTORY: The patient is a 59-year-old postmenopausal female with clinicalconcern for metabolic bone disease. FINDINGS: Dual energy x-ray absorptiometry of the lumbar spine and femursis performed. The mean bone mineral density at L1-3 is 1.005 gm/cm2 whichis 86% of that of young normals and 100% of that of age matched controls.This yields a T-score of -1.4 and a Z-score of 0.0 which is diagnostic ofosteopenia. The mean bone mineral density of the femurs bilaterally is 0.672 gm/of3eftwu is 67% of that of young normals and 77% of that of age matchedcontrols. This yields a T-score of -2.7 and a Z-score of -1.6 which isdiagnostic of osteoporosis. The T- score of the right femur is -2.8 whichis diagnostic of osteoporosis. IMPRESSION: 1. Osteoporosis. 2. FRAX analysis yields a 10-year probability of major osteoporoticfracture of 9.2% and a 10-year probability of hip fracture of 1.7%. Code 94998 -------- FINAL REPORT -------- Dictated By: Lc Jerome Dictated Date: 11/11/2024 11:39 ET Assigned Physician: cL Jerome Reviewed and Electronically Signed By: Lc Jerome Signed Date: 11/11/2024 11:41 ET Workstation ID: [id number] Transcribed By: Self Edit Transcribed Date: 11/11/2024 11:39 ET Galindo Lay MD IMG DXA PROCEDURES Final Res ult from Last 3 Months or Most Recently Relevant to Health Maintenance Insurance [facility] [employer] Care Teams Assistant Manager Trainee Relationship Specialty Start Date End Date Antonia Sanchez MD [address] [place] [phone] PCP - General Internal Medicine 02/08/15
== END 2025-04-08 13:37 | disposition home or self-care (01) ==
PROVIDERS: PCP Internal Medicine; Visit Provider Internal Medicine
DX: M25.552 Pain in left hip (principal); M54.50 Low back pain, unspecified; M79.641 Pain in right hand; M79.642 Pain in left hand; H91.93 Unspecified hearing loss, bilateral

== ENCOUNTER → 2025-04-08 12:44 | Outpatient (BNVA) | payer OTHER, SELFPAY | PROVIDERS: PCP Internal Medicine; Visit Provider Internal Medicine | DX: M79.641 Pain in right hand (principal); M79.642 Pain in left hand; M25.552 Pain in left hip; M54.50 Low back pain, unspecified; H91.93 Unspecified hearing loss, bilateral | CPT/HCPCS: 99212 ==